=== PATIENT | female | born 1955 | race Caucasian/White ===

== ENCOUNTER 2017-04-10 10:35 | Inpatient (IN) | payer MEDICARE, OTHER ==
[~2017-04-10] VITALS: Ht 162.6 cm; Wt 55.5 kg
--- NOTE | 2017-04-10 10:59 | ED General ---
General Chief Complaint: Neurological Problems Stated Complaint: WEAKNESS Source of Information: Patient Exam Limitations: No Limitations History of Present Illness Time Seen by Provider: 10:56 Initial Comments To ER per EMS from home at the request of her family, she does not want to be here. Her family called EMS for ongoing weakness for the past several months as well as weight loss, poor appetite, nausea/vomiting and apparently she has been recently diagnosed with lung cancer at the emergency room at [facility] during the middle of this month. She has intermittent periods of confusion for several months according to family. She's had these symptoms for the past several months but they've been worse over the past 2-3 days. She does continue to smoke 2 packs of cigarettes per day and has done so for 40 years. She denies pain currently but the family insists that she usually has pain all over secondary to fibromyalgia and her Tylenol No. 4 is not nearly strong enough. Again, the patient denies current pain. Patient is unable to get herself out of bed to the commode without assistance Timing/Duration: Getting Worse Severity: Moderate Allergies and Home Medications Allergies Coded Allergies: No Known Drug Allergies (Unverified , 04/10/17) Constitutional: see HPI, weakness EENTM: see HPI Respiratory: cough Cardiovascular: no symptoms reported Gastrointestinal: No abdominal pain, nausea, vomiting Genitourinary: no symptoms reported Musculoskeletal: no symptoms reported Skin: no symptoms reported Psychiatric/Neurological: No Symptoms Reported Hematologic/Lymphatic: No Symptoms Reported Physical Exam Vital Signs Vital Sign - Last 12Hours 04/10/17 11:03 Temp 97.2 Pulse 97 Resp 20 B/P (MAP) 137/84 Pulse Ox 91 O2 Delivery Room Air Capillary Refill : General Appearance: No Apparent Distress, WD/WN, Chronically ill, Other ( lethargic) Eyes: Bilateral Eye Normal Inspection, Bilateral Eye PERRL, Bilateral Eye EOMI HEENT: PERRL/EOMI, TMs Normal Neck: Full Range of Motion, Normal Inspection Respiratory: No Accessory Muscle Use, No Respiratory Distress, Decreased Breath Sounds, Wheezing Cardiovascular: Regular Rate, Rhythm, Normal Peripheral Pulses Gastrointestinal: No Pulsatile Mass, Non Tender, Soft Extremity: Normal Capillary Refill, Normal Inspection Neurologic/Psychiatric: Alert, Oriented x3, No Motor/Sensory Deficits Skin: Normal Color, Warm/Dry Progress/Results/Core Measures Results/Orders Lab Results Laboratory Tests Test 04/10/17 11:10 04/10/17 12:45 Range/Units White Blood Count 10.5 4.3-11.0 10^3/uL Red Blood Count 4.30 L 4.35-5.85 10^6/uL Hemoglobin 14.0 11.5-16.0 G/DL Hematocrit 41 35-52 % Mean Corpuscular Volume 96 80-99 FL Mean Corpuscular Hemoglobin 33 25-34 PG Mean Corpuscular Hemoglobin Concent 34 32-36 G/DL Red Cell Distribution Width 13.1 10.0-14.5 % Platelet Count 200 130-400 10^3/uL Mean Platelet Volume 9.9 7.4-10.4 FL Neutrophils (%) (Auto) 86 H 42-75 % Lymphocytes (%) (Auto) 7 L 12-44 % Monocytes (%) (Auto) 7 0-12 % Eosinophils (%) (Auto) 0 0-10 % Basophils (%) (Auto) 0 0-10 % Neutrophils # (Auto) 9.0 H 1.8-7.8 X 10^3 Lymphocytes # (Auto) 0.7 L 1.0-4.0 X 10^3 Monocytes # (Auto) 0.7 0.0-1.0 X 10^3 Eosinophils # (Auto) 0.0 0.0-0.3 10^3/uL Basophils # (Auto) 0.0 0.0-0.1 10^3/uL Neutrophils % (Manual) 87 % Lymphocytes % (Manual) 8 % Monocytes % (Manual) 5 % Eosinophils % (Manual) 0 % Basophils % (Manual) 0 % Band Neutrophils 0 % Blood Morphology Comment NORMAL Sodium Level 137 135-145 MMOL/L Potassium Level 3.4 L 3.6-5.0 MMOL/L Chloride Level 101 98-107 MMOL/L Carbon Dioxide Level 23 21-32 MMOL/L Anion Gap 13 5-14 MMOL/L Blood Urea Nitrogen 14 7-18 MG/DL Creatinine 0.65 0.60-1.30 MG/DL Estimat Glomerular Filtration Rate > 60 BUN/Creatinine Ratio 22 Glucose Level 114 H 70-105 MG/DL Calcium Level 8.8 8.5-10.1 MG/DL Total Bilirubin 0.6 0.1-1.0 MG/DL Aspartate Amino Transf (AST/SGOT) 12 5-34 U/L Alanine Aminotransferase (ALT/SGPT) 14 0-55 U/L Alkaline Phosphatase 147 H 40-136 U/L Troponin I < 0.30 <0.30 NG/ML Total Protein 5.6 L 6.4-8.2 GM/DL Albumin 3.3 3.2-4.5 GM/DL Lipase 18 8-78 U/L Blood Gas Puncture Site LT RAD Blood Gas Patient Temperature 98.2 Arterial Blood pH 7.37 7.37-7.43 Arterial Blood Partial Pressure CO2 43 35-45 MMHG Arterial Blood Partial Pressure O2 86 79-93 MMHG Arterial Blood HCO3 24 23-27 MMOL/L Arterial Blood Total CO2 25.8 21.0-31.0 MMOL/L Arterial Blood Oxygen Saturation 97 94-100 % Arterial Blood Base Excess -0.2 -2.5-2.5 MMOL/L Christian Test YES-POS Blood Gas Ventilator Setting NO Blood Gas Inspired Oxygen 2L My Orders Orders - WARREN HERNÁNDEZ APRN Cbc With Automated Diff (04/10/17 10:48) Comprehensive Metabolic Panel (04/10/17 10:48) Ua Culture If Indicated (04/10/17 10:48) Saline Lock/Iv-Start (04/10/17 10:48) Chest Pa/Lat (2 View) (04/10/17 10:48) Troponin I (04/10/17 10:48) Ekg Tracing (04/10/17 10:48) Lipase (04/10/17 11:00) Ns Iv 1000 Ml (Sodium Chloride 0.9%) (04/10/17 11:00) Ondansetron Injection (Zofran Injectio (04/10/17 11:00) Manual Differential (04/10/17 11:10) Ct Chest W (04/10/17 12:35) Ct Head Wo (04/10/17 12:35) Arterial Blood Gas (04/10/17 12:47) Iohexol Injection (Omnipaque 350 Mg/Ml 1 (04/10/17 13:00) Sodium Chloride Flush (Catheter Flush Sy (04/10/17 13:00) Ns (Ivpb) (Sodium Chloride 0.9% Ivpb Bag (04/10/17 13:00) Medications Given in ED Current Medications Medications Dose Ordered Sig/Portia Route Start Time Stop Time Status Last Admin Dose Admin Iohexol 75 ml ONCE ONCE IV 04/10/17 13:00 04/10/17 13:01 DC 04/10/17 13:11 75 ML Ondansetron HCl 4 mg ONCE ONCE IVP 04/10/17 11:00 04/10/17 11:01 DC 04/10/17 11:27 4 MG Sodium Chloride 100 ml ONCE ONCE IV 04/10/17 13:00 04/10/17 13:01 DC 04/10/17 13:11 80 ML Vital Signs/I&O Vital Sign - Last 12Hours 04/10/17 11:03 Temp 97.2 Pulse 97 Resp 20 B/P (MAP) 137/84 Pulse Ox 91 O2 Delivery Room Air Diagnostic Imaging Diagonstic Imaging: CT Plain Films/CT/US/NM/MRI: chest Comments NAME: ANUPAMA CARBAJAL [employer] REC#: [id number] PT STATUS: REG ER : 1955 PHYSICIAN: WARREN HERNÁNDEZ APRN ADMIT DATE: 04/10/17/ER Signed Date of Exam:04/10/17 CT CHEST W PROCEDURE: CT chest with contrast only. TECHNIQUE: Multiple contiguous axial images were obtained through the chest after administration of intravenous contrast. INDICATION: Abnormal chest x-ray. Lung nodule. Cough There is a 2 x 3 cm spiculated mass in the right upper lobe anteriorly and laterally in a subpleural location. There is slight architectural distortion surrounding this. This is separate from some mild apical pleural scarring and malignancy needs be excluded. There is a patchy infiltrate in the right lower lobe. This corresponds with infiltrate seen on the chest x-ray. There is a 12 x 7 mm parenchymal density in the right middle lobe with some slight adjacent parenchymal distortion. The left lung is clear. There is no effusion or pneumothorax. There is a 14 x 21 mm subcarinal lymph node present. There is a similar sized pretracheal lymph node present. There is a 10 mm right hilar lymph node. No bony destructive lesions are seen. No liver lesions or adrenal lesions are evident. IMPRESSION: There is a spiculated mass in the right upper lobe which represents malignancy until proven otherwise. There is a smaller spiculated density in the right middle lobe which could be localized atelectasis versus infiltrate versus scar versus neoplasm. There is nodular infiltrate in the right lower lobe which is most consistent with pneumonia. PET scan may be helpful for further evaluation of the right upper and right middle lobe nodules. Dictated by: Dictated on workstation # [id number] Dict: 04/10/17 1325 Trans: 04/10/17 1340 [facility] [id number] Interpreted by: KENNETH CLIFFORD MD Electronically signed by: KENNETH CLIFFORD MD 04/10/17 1340 Departure Communication (Admissions) Time/Spoke to Admitting Phy: 15:[address] Norman agrees to admit Time/Spoke to Consulting Phy: 15:02 Communication/Consulting Voice mail left with Dr. Hyde notifying him of consult. Progress Notes 1458-patient is reluctant to be admitted but does ultimately agreed to. I feel she would benefit from inpatient admission given her nausea and vomiting and the fact that she would likely be unable to tolerate oral antibiotics for this right lower lobe pneumonia at home with her nausea. Her oxygen saturation has been greater than 90 percent on room air. Since she was on Cipro at the beginning of this month for urinary tract infection I will use the Zosyn and Levaquin combination for pneumonia Impression Impression: Primary Impression: Right lower lobe pneumonia Additional Impressions: Mass of upper lobe of right lung Mass of middle lobe of right lung Disposition: ADMITTED INPATIENT Condition: Stable Admissions Decision to Admit Reason: Admit from ER (General) Decision to Admit/Date: Apr 10, 2017 Time/Decision to Admit Time: 15:02 Departure-Patient Inst. Referrals: NO,LOCAL PHYSICIAN (PCP/Family) Primary Care Physician WARREN HERNÁNDEZ APRN Apr 10, 2017 10:59
[2017-04-10] MEDS ORDERED: NS IV 1000 ML 1,000 ML IV SCH (11:00)
[2017-04-10] MEDS ORDERED: ONDANSETRON 4 MG/2 ML (SDV) Z0FRAN IVP ONE (11:00)
[2017-04-10 11:20] LABS: BASOPHILS % (AUTO) 0 % (0-10); EOSINOPHILS % (AUTO) 0 % (0-10); LYMPHOCYTES # (AUTO) 0.7 X 10^3 (1.0-4.0); LYMPHOCYTES % (AUTO) 7 % (12-44); MEAN CORPUSCULAR HEMOGLOBIN 33 PG (25-34); MEAN CORPUSCULAR HGB CONC 34 G/DL (32-36); MEAN CORPUSCULAR VOLUME 96 FL (80-99); MEAN PLATELET VOLUME 9.9 FL (7.4-10.4); MONOCYTES # (AUTO) 0.7 X 10^3 (0.0-1.0); MONOCYTES % (AUTO) 7 % (0-12); NEUTROPHILS % (AUTO) 86 % (42-75); PLATELET COUNT 200 10^3/uL (130-400); RED CELL DISTRIBUTION WIDTH 13.1 % (10.0-14.5); WHITE BLOOD COUNT 10.5 10^3/uL (4.3-11.0)
[2017-04-10 11:36] LABS: ALANINE AMINOTRANSFERASE 14 U/L (0-55); ALBUMIN 3.3 GM/DL (3.2-4.5); ANION GAP 13 MMOL/L (5-14); ASPARTATE AMINO TRANSFERASE 12 U/L (5-34); BILIRUBIN,TOTAL 0.6 MG/DL (0.1-1.0); BLOOD UREA NITROGEN 14 MG/DL (7-18); BUN/CREATININE RATIO 22; CALCIUM 8.8 MG/DL (8.5-10.1); CARBON DIOXIDE 23 MMOL/L (21-32); CHLORIDE 101 MMOL/L (98-107); CREATININE SERUM 0.65 MG/DL (0.60-1.30); GFR ESTIMATED > 60; GLUCOSE 114 MG/DL (70-105); LIPASE 18 U/L (8-78); POTASSIUM 3.4 MMOL/L (3.6-5.0); SODIUM 137 MMOL/L (135-145); TOTAL PROTEIN 5.6 GM/DL (6.4-8.2)
[2017-04-10 11:37] LABS: BAND NEUTROPHILS 0 %; BASOPHILS % (MANUAL) 0 %; EOSINOPHILS % (MANUAL) 0 %; LYMPHOCYTES % (MANUAL) 8 %; NEUTROPHILS % (MANUAL) 87 %
[2017-04-10 11:42] LABS: TROPONIN I < 0.30 NG/ML (<0.30)
--- NOTE | 2017-04-10 12:52 | Diagnostic Imaging Report ---
INDICATION: Cough and shortness of breath and weakness. PA and lateral chest obtained at 11:56 a.m. FINDINGS: Heart is normal in size. Mediastinal silhouette is unremarkable. There is COPD change with chronic appearing increased interstitial markings. There is alveolar infiltrate in the right lower lobe suspicious for pneumonia. There is a questionable nodular density in the right apex, would consider followup studies, if this does not resolve then chest CT would be recommended. IMPRESSION: COPD changes and chronic appearing increased interstitial markings. Alveolar infiltrate in the right lung base suspicious for pneumonia. There is a nodular density overlying the right apex. Followup study after treatment is recommended, with chest CT if this does not resolve. Dictated by: Dictated on workstation # [id number]
[2017-04-10 12:53] LABS: ABG BASE EXCESS -0.2 MMOL/L (-2.5-2.5); ABG HCO3 24 MMOL/L (23-27); ABG OXYGEN SATURATION 97 % (94-100); ABG PCO2 43 MMHG (35-45); ABG PH 7.37 (7.37-7.43); ABG PO2 86 MMHG (79-93); ABG TCO2 25.8 MMOL/L (21.0-31.0)
[2017-04-10 12:54] LABS: ALLENS TEST YES-POS; PATIENT TEMP 98.2
[2017-04-10] MEDS ORDERED: NS 100 ML (IVPB) BAG IV ONE (13:00)
[2017-04-10] MEDS ORDERED: IOHEXOL 350 MG/ML 100 ML (OMNIPAQUE 350) VIAL IV ONE (13:00)
[2017-04-10] MEDS ORDERED: CATHETER FLUSH 10 ML SYR IV PRN (13:00)
--- NOTE | 2017-04-10 13:32 | Diagnostic Imaging Report ---
INDICATION: Dizziness and lightheadedness and memory loss. Noncontrast brain CT is performed. There is no prior study for comparison. There are mild diffuse atrophic changes. There is no subdural or epidural collection. Calvarial windows are unremarkable. There are no focal parenchymal abnormalities in the brain. Visualized portions of the orbits and sinuses are unremarkable. IMPRESSION: Mild atrophic changes with no acute intracranial abnormality. Dictated by: Dictated on workstation # [id number]
--- NOTE | 2017-04-10 13:36 | Diagnostic Imaging Report ---
PROCEDURE: CT chest with contrast only. TECHNIQUE: Multiple contiguous axial images were obtained through the chest after administration of intravenous contrast. INDICATION: Abnormal chest x-ray. Lung nodule. Cough There is a 2 x 3 cm spiculated mass in the right upper lobe anteriorly and laterally in a subpleural location. There is slight architectural distortion surrounding this. This is separate from some mild apical pleural scarring and malignancy needs be excluded. There is a patchy infiltrate in the right lower lobe. This corresponds with infiltrate seen on the chest x-ray. There is a 12 x 7 mm parenchymal density in the right middle lobe with some slight adjacent parenchymal distortion. The left lung is clear. There is no effusion or pneumothorax. There is a 14 x 21 mm subcarinal lymph node present. There is a similar sized pretracheal lymph node present. There is a 10 mm right hilar lymph node. No bony destructive lesions are seen. No liver lesions or adrenal lesions are evident. IMPRESSION: There is a spiculated mass in the right upper lobe which represents malignancy until proven otherwise. There is a smaller spiculated density in the right middle lobe which could be localized atelectasis versus infiltrate versus scar versus neoplasm. There is nodular infiltrate in the right lower lobe which is most consistent with pneumonia. PET scan may be helpful for further evaluation of the right upper and right middle lobe nodules. Dictated by: Dictated on workstation # [id number]
[2017-04-10 15:08] LABS: BILIRUBIN,URINE NEGATIVE (NEGATIVE); KETONES,URINE NEGATIVE (NEGATIVE); LEUKOCYTE ESTERASE ,URINE 1+ (NEGATIVE); NITRITE,URINE NEGATIVE (NEGATIVE); PH,URINE 6.5 (5-9); PROTEIN,URINE 1+ (NEGATIVE); UROBILINOGEN,URINE 4 MG/DL (NORMAL)
[2017-04-10] MEDS ORDERED: LEVOFLOXACIN 750 MG/150 ML IV 150 ML IV ONE (15:15)
[2017-04-10] MEDS ORDERED: ESOM20CA37 PO (16:05)
[2017-04-10] MEDS ORDERED: ACET1TAB45 PO (16:05)
[2017-04-10] MEDS ORDERED: ATOR10TA66 PO (16:05)
[2017-04-10] MEDS ORDERED: RT-ALBUINH INH (16:05)
[2017-04-10] MEDS ORDERED: AMIT25TA9 PO ×2 (16:05)
[2017-04-10] MEDS ORDERED: ZOLP10TA5 PO (16:05)
[2017-04-10] MEDS ORDERED: PROC10TA PO (16:05)
[2017-04-10] MEDS ORDERED: FLUT1AER INH (16:05)
[2017-04-10] MEDS ORDERED: ONDA4TAB11 PO (16:05)
[2017-04-10] MEDS ORDERED: FLUO20CA25 PO (16:05)
[2017-04-10] MEDS ORDERED: FAMO20TA5 PO (16:05)
[2017-04-10] MEDS ORDERED: TIZA4TAB3 PO (16:05)
[2017-04-10] MEDS ORDERED: DIAZ10TA3 PO (16:05)
[2017-04-10] MEDS ORDERED: PROM25TA14 PO (16:05)
[2017-04-10] MEDS ORDERED: SCOP1PAT TD (16:05)
[2017-04-10] MEDS ORDERED: MELO7.5T46 PO (16:05)
[2017-04-10 16:12] VITALS: BP 145/71
[2017-04-10] MEDS ORDERED: IPRA4AER INH (16:14)
[2017-04-10] MEDS ORDERED: ALEN70TA47 PO (16:14)
[2017-04-10] MEDS ORDERED: PIPERACILLIN/TAZOBACTAM 4.5 GM/NS100 ML IVPB IV NR ×2 (16:30)
[2017-04-10] MEDS ORDERED: LORazepam INJ 2 MG/ML (ATIVAN) VIAL IV PRN (16:30)
[2017-04-10] MEDS ORDERED: ONDANSETRON 4 MG/2 ML (SDV) Z0FRAN IV PRN (16:30)
[2017-04-10 16:48] VITALS: BP 137/84
[2017-04-10] MEDS: NICOTINE 21 MG (NICODERM) PATCH TD SCH (17:06)
[2017-04-10] MEDS: NS W/KCL 40 MEQ/L 1,000 ML IV SCH (17:07)
[2017-04-10] MEDS ORDERED: RT-ALBUTEROL/IPRATROPIUM 3 ML (DUONEB) VIAL INH PRN (17:15)
[2017-04-10 19:10] VITALS: BP 127/80
[2017-04-10] MEDS: RT-ALBUTEROL/IPRATROPIUM 3 ML (DUONEB) VIAL INH SCH ×2 (19:13→22:45)
[2017-04-10] MEDS: PIPERACILLIN/TAZOBACTAM 4.5 GM/NS 100 ML IVPB IV SCH ×2 (21:22)
[2017-04-11] MEDS: RT-ALBUTEROL/IPRATROPIUM 3 ML (DUONEB) VIAL INH SCH ×2 (01:47→06:50)
[2017-04-11 03:35] VITALS: BP 124/63
[2017-04-11] MEDS: NS W/KCL 40 MEQ/L 1,000 ML IV SCH ×3 (03:43→13:53)
[2017-04-11] MEDS: PIPERACILLIN/TAZOBACTAM 4.5 GM/NS 100 ML IVPB IV SCH ×6 (05:48→21:02)
[2017-04-11] MEDS: NICOTINE 21 MG (NICODERM) PATCH TD SCH (08:00)
[2017-04-11] MEDS: NICOTINE PATCH REMOVAL TP SCH (08:01)
--- NOTE | 2017-04-11 08:29 | Pulmonary Consultation ---
History of Present Illness History of Present Illness Date of Consultation 04/11/17 08:24 Time Seen by Provider: 08:24 Date of Admission History of Present Illness 61yo with recent of heavy tobacco use and dx of lung cancer at [facility] presented to ED via EMS secondary to progressive confusion, wt loss, poor appetite, n/v. No prior symptoms like this. I am consulted for pulmonary management. Allergies and Home Medications Allergies Coded Allergies: Sulfa (Sulfonamide Antibiotics) (Verified Allergy, Unknown, HIVES, 04/10/17 ) morphine (Unverified Adverse Reaction, Mild, NAUSEA, 04/11/17) Home Medications Acetaminophen with Codeine 1 Each Tablet, 1 TAB PO BID, (Reported) Albuterol Sulfate 1 Puff Puff, 2 PUFF INH Q4H, (Reported) Albuterol/Ipratropium 4 Gm Aero, 1 PUFF INH QID PRN for SHORTNESS OF BREATH, ( Reported) Alendronate Sodium 70 Mg Tablet, 70 MG PO Mo, (Reported) Amitriptyline HCl 25 Mg Tablet, 50 MG PO DAILY, (Reported) TAKES 2 (25MG) TABLETS Amitriptyline HCl 25 Mg Tablet, 100 MG PO HS, (Reported) TAKES 4 (25MG) TABLETS Atorvastatin Calcium 10 Mg Tablet, 10 MG PO HS, (Reported) Diazepam 10 Mg Tablet, 10 MG PO BID, (Reported) Esomeprazole Magnesium 20 Mg Capsule.dr, 20 MG PO DAILY, (Reported) Famotidine 20 Mg Tablet, 20 MG PO BID PRN for HEARTBURN, (Reported) Fluoxetine HCl 20 Mg Capsule, 20 MG PO BID, (Reported) Fluticasone/Vilanterol 1 Each Blst.w.dev, 2 PUFF INH BID PRN for SHORTNESS OF BREATH, (Reported) Meloxicam 7.5 Mg Tablet, 7.5 MG PO DAILY, (Reported) Ondansetron 4 Mg Tab.rapdis, 4 MG PO Q6H PRN for NAUSEA/VOMITING-1ST LINE, ( Reported) Prochlorperazine Maleate 10 Mg Tablet, 10 MG PO TID PRN for NAUSEA/VOMITING-4TH LINE, (Reported) Promethazine HCl 25 Mg Tablet, 25 MG PO Q6H PRN for NAUSEA/VOMITING-2ND LINE, ( Reported) Scopolamine 1 Each Patch.td72, 1 PATCH TD DAILY, (Reported) Tizanidine HCl 4 Mg Tablet, 4 MG PO BID, (Reported) Zolpidem Tartrate 10 Mg Tablet, 10 MG PO HS PRN for SLEEP, (Reported) Past [id number]-[id number]-Ramawj Hx Patient Social History Alcohol Use: Denies Use Recreational Drug Use: No Smoking Status: Current Everyday Smoker Type Used: Cigarettes 2nd Hand Smoke Exposure: Yes Recent Foreign Travel: No Contact w/Someone Who Travel: No Recent Infectious Disease Expo: No Recent Hopitalizations: No Physical Abuse: No Sexual Abuse: No Immunizations Up To Date PED Vaccines UTD: No Seasonal Allergies Seasonal Allergies: No Surgeries History of Surgeries: Yes (D&C X 2) Surgeries: Hysterectomy Respiratory History of Respiratory Disorde: Yes Respiratory Disorders: COPD Currently Using CPAP: No Currently Using BIPAP: No Cardiovascular History of Cardiac Disorders: Yes (TRICUSPID REGERG) Cardiac Disorders: High Cholesterol, Hypertension Neurological History of Neurological Disord: No Reproductive System : No Sexually Transmitted Disease: No HIV/AIDS: No Female Reproductive Disorders: Denies Genitourinary History of Genitourinary Disor: Yes (YEAST INFECTION WITH ABX) Gastrointestinal History of Gastrointestinal Di: Yes Gastrointestinal Disorders: Gastroesophageal Reflux, Hemorrhoids Musculoskeletal History of Musculoskeletal Dis: No Musculoskeletal Disorders: Fibromyalgia Endocrine History of Endocrine Disorders: No Are Your Blood Sugars Over 250: No HEENT History of HEENT Disorders: No Loss of Vision: Denies Hearing Impairment: Denies Cancer History of Cancer: Yes (METASTATIC) Cancer: Lung Did You Recieve Any Treatments: No Psychosocial Suicide Risk Score: 0 Integumentary History of Skin or Integumenta: No Family Medical History Family Medial History: Patient reports no known family medical history. Review of Systems Time Seen by Provider: 07:36 Constitutional: Weakness, No: Fever, Chills, Sweats, Malaise, Other Eyes: No: Pain, Vision change, Conjunctivae inflammation, Eyelid inflammation, Other, Redness ENT: No: Ear pain, Ear discharge, Nose pain, Nose discharge, Nose congestion, Mouth pain, Mouth swelling, Throat pain, Throat swelling, Other Respiratory: Cough, Dry, Shortness of breath, SOB with excertion, Wheezing, Sputum, No: Hemoptysis Cardiovascular: Orthopnea, Paroxysmal Noc. Dyspnea, Lt Headedness Gastrointestinal: Nausea, Vomiting, Constipation, No: Abdominal Pain, Diarrhea Genitourinary: No Dysuria, No Frequency, No Incontinence, No Hematuria, No Retention, No Other Neurological: Confusion Exam Exam Vital Signs Date Time Temp Pulse Resp B/P (MAP) Pulse Ox O2 Delivery O2 Flow Rate FiO2 04/11/17 06:55 94 Nasal Cannula 2.00 04/11/17 03:35 98.2 95 18 124/63 94 Nasal Cannula 2.00 04/11/17 01:48 91 Nasal Cannula 2.00 04/10/17 22:46 88 Room Air 04/10/17 21:00 Nasal Cannula 2.00 04/10/17 19:13 95 Nasal Cannula 2.00 04/10/17 19:10 98.4 87 20 127/80 95 Room Air 04/10/17 18:31 96 Nasal Cannula 2.00 04/10/17 16:48 85 96 04/10/17 16:48 96 Nasal Cannula 2.00 04/10/17 16:12 98.4 105 20 145/71 97 Room Air 04/10/17 11:03 97.2 97 20 137/84 91 Room Air General Appearance: No Apparent Distress, WD/WN, Chronically ill HEENT: PERRL/EOMI, TMs Normal Neck: Full Range of Motion, Normal Inspection Respiratory: No Accessory Muscle Use, No Respiratory Distress, Decreased Breath Sounds Cardiovascular: Regular Rate, Rhythm, Normal Peripheral Pulses Capillary Refill: Less Than 3 Seconds Extremity: Normal Capillary Refill, Normal Inspection Neurologic/Psychiatric: Alert, Oriented x3, No Motor/Sensory Deficits Skin: Normal Color, Warm/Dry Results Lab Laboratory Tests 04/10/17 11:10 Assessment/Plan Assessment/Plan Lung mass with mediastinal lymphadenopathy - Pt has not had bx however she is aware of the lung mass. - I have patient scheduled for bronchoscopy with EBUS on . This does not have to be done as inpatient. RLL pneumonia possible post obstructive -Zosyn and levaquin -scherer cultures Severe COPD -SVNs, oxygen persistent N/v, decreased appetite 254 Clinical Quality Measures DVT/VTE Risk/Contraindication: Risk Factor Score Per Nursin RFS Level Per Nursing on Admit: 3=High KENZIE HERNANDEZ DO Apr 11, 2017 08:29
[2017-04-11 08:41] VITALS: BP 123/75
[2017-04-11] MEDS: LEVOFLOXACIN 750 MG/150 ML IV 150 ML IV SCH (10:24)
--- NOTE | 2017-04-11 10:41 | History & Physical-Hospitalist ---
HPI History of Present Illness: HPI/Chief Complaint CC: Weakness HPI: This is a 61 [address] Jauregui that presented after ER visit to multiple ERs for lung ca but there is a question if this is a formal dx or not. CT scan revealed multiple lung masses consistent with lung ca, but no tissue dx. Admitted for pneumonia of the right lower lobe. She is been placed on Levaquin and Zosyn. Pt afebrile through the night on O2. SW Review: There was no biopsy performed, lung ca was a CT dx Patient Interview: Pt confirms seeing Dr. Hyde this am. Pt states she discussed what was found in her lungs with him. Pt confirms that she has had several CT scans recently. First, she states they thought it was scar tissue, then pneumonia, and finally they told the pt that she had lung ca and pneumonia. Pt denies O2 use at home Catheter discussed Physical exam stable. Lungs sound perfect Pt states she used to work for [employer], it is now called [employer] Pt confirms smoking and has been placed on a patch Pt states she had a BM a few days ago. BM meds discussed Pt confirms having fibromyalgia Scribed by Ginger Duarte under the direct supervision of Dr. Romano. Source: patient Exam Limitations: no limitations Date Seen 04/11/17 Time Seen by Provider: 10:00 Attending Physician Julienne Romano DO PCP No,Local Physician Referring Physician Date of Admission Apr 10, 2017 at 15:08 Home Medications & Allergies Home Medications Reviewed patient Home Medication Reconciliation Form Allergies Allergies Coded Allergies Sulfa (Sulfonamide Antibiotics) (Verified Allergy, Unknown, HIVES, 04/10/17) morphine (Unverified Adverse Reaction, Mild, NAUSEA, 04/11/17) Past [id number] Hx Patient Social History Marrital Status: single Employed/Student: retired Alcohol Use: Denies Use Recreational Drug Use: No Smoking Status: Current Everyday Smoker Type Used: Cigarettes 2nd Hand Smoke Exposure: Yes Physical Abuse Screen: No Sexual Abuse: No Recent Foreign Travel: No Contact w/other who traveled: No Recent Hopitalizations: No Recent Infectious Disease Expo: No Immunizations Up To Date Pediatric: No Seasonal Allergies Seasonal Allergies: No Surgeries Yes (D&C X 2) Hysterectomy Respiratory Yes COPD Currently Using CPAP: No Currently Using BIPAP: No Cardiovascular Yes (TRICUSPID REGERG) High Cholesterol, Hypertension Neurological No Reproductive System : No Sexually Transmitted Disease: No HIV/AIDS: No Female Reproductive Disorders: Denies Genitourinary Yes (YEAST INFECTION WITH ABX) Gastrointestinal Yes Gastroesophageal Reflux, Hemorrhoids Musculoskeletal No Fibromyalgia Endocrine History of Endocrine Disorders: No Are Your Blood Sugars Over 250: No HEENT History of HEENT Disorders: No Loss of Vision: Denies Hearing Impairment: Denies Cancer Yes (METASTATIC) Lung Did You Recieve Any Treatments: No Integumentary History of Skin or Integumenta: No Family Medical History Family Hx: Patient reports no known family medical history. Review of Systems Constitutional: see HPI, dizziness, fever, weakness EENTM: no symptoms reported Respiratory: short of breath Cardiovascular: no symptoms reported Gastrointestinal: nausea Genitourinary: no symptoms reported Musculoskeletal: no symptoms reported Skin: no symptoms reported Psychiatric/Neurological: No Symptoms Reported All Other Systems Reviewed Negative Unless Noted: Yes Physical Exam Physical Exam Vital Signs Vital Sign - Last 12Hours 04/10/17 11:03 Temp 97.2 Pulse 97 Resp 20 B/P (MAP) 137/84 Pulse Ox 91 O2 Delivery Room Air Capillary Refill : Less Than 3 Seconds General Appearance: No Apparent Distress, WD/WN, Chronically ill, Cachetic, Other (appears very end-stage) Eyes: Bilateral Eye Normal Inspection, Bilateral Eye PERRL HEENT: PERRL/EOMI, Normal ENT Inspection, Pharynx Normal Neck: Full Range of Motion, Normal Inspection, Non Tender, Supple, Carotid Bruit Respiratory: Chest Non Tender, No Accessory Muscle Use, No Respiratory Distress , Crackles, Decreased Breath Sounds Cardiovascular: Regular Rate, Rhythm, No Edema, No Gallop, No JVD, No Murmur, Normal Peripheral Pulses Gastrointestinal: Normal Bowel Sounds, No Organomegaly, No Pulsatile Mass, Non Tender, Soft Back: Normal Inspection, No CVA Tenderness, No Vertebral Tenderness Extremity: Normal Capillary Refill, Normal Inspection, Normal Range of Motion, Non Tender, No Calf Tenderness, No Pedal Edema Neurologic/Psychiatric: Alert, Oriented x3, No Motor/Sensory Deficits, Depressed Affect Skin: Normal Color, Warm/Dry Lymphatic: No Adenopathy Results Results/Procedures Lab Laboratory Tests 04/10/17 11:10 Assessment/Plan Admission Diagnosis Assessment: Acute right lower lobe pneumonia likely obstructive Multiple lung masses consistent with lung cancer and current smoker Severe COPD now requiring oxygen previously had not had home O2 Hypertension Severe fibromyalgia Depression Hyperlipidemia GERD Osteoarthritis Chronic pain Assessment and Plan Plan: Reconcile home meds BM meds Home O2 PT Disposition Clinical Quality Measures DVT/VTE Risk/Contraindication: Risk Factor Score Per Nursin RFS Level Per Nursing on Admit: 3=High JULIENNE ROMANO DO Apr 11, 2017 10:41
[2017-04-11] MEDS ORDERED: PROMETHAZINE 25 MG (PHENERGAN) TAB PO PRN (11:00)
[2017-04-11] MEDS ORDERED: FAMOTIDINE 20 MG (PEPCID) TABLET PO PRN (11:00)
[2017-04-11] MEDS ORDERED: PROCHLORPERAZINE 10 MG TAB (COMPAZINE) PO PRN (11:00)
[2017-04-11] MEDS ORDERED: SCOPOLAMINE 1.5 MG (TRANSDERM-SCOP) PATCH TD SCH (11:15)
[2017-04-11] MEDS ORDERED: ZOLPIDEM 5 MG (AMBIEN) TAB PO PRN (11:15)
[2017-04-11] MEDS ORDERED: RT-ALBUTEROL/IPRATROPIUM 3 ML (DUONEB) VIAL IH PRN (11:15)
[2017-04-11] MEDS: DIAZEPAM 5 MG (VALIUM) TABLET PO SCH ×2 (11:25→21:03)
[2017-04-11] MEDS: APAP 300 MG/CODEINE 30 MG (TYLENOL #3) TAB PO SCH ×2 (11:25→21:03)
[2017-04-11] MEDS: AMITRIPTYLINE 50 MG (ELAVIL) TAB PO SCH ×2 (11:25→21:03)
[2017-04-11] MEDS: LACTULOSE SYRUP 10GM/15ML (ENULOSE) 30ML UDC PO SCH ×2 (11:25→21:04)
[2017-04-11 12:00] VITALS: BP 135/66
[2017-04-11] MEDS: ONDANSETRON 4 MG (ZOFRAN) ORAL DISSOLVE TAB PO PRN (12:33)
--- NOTE | 2017-04-11 15:01 | Physical Therapy Evaluation ---
PT Evaluation-General Medical Diagnosis Admission Date Apr 10, 2017 at 15:08 Medical Diagnosis: lung mass/pneumonia Onset Date: Apr 10, 2017 Therapy Diagnosis Therapy Diagnosis: weakness and debility Height/Weight Height (Feet): 5 Height (Inches): 4.00 Weight (Pounds): 122 Weight (Ounces): 4.0 Precautions Precautions/Isolations: Fall Prevention, Standard Precautions Referral Physician: Ester Reason for Referral: Evaluation/Treatment Medical History Pertinent Medical History: COPD, HTN, OA, Smoking Additional Medical History Lung cancer newly diagnosed Current History EMS- weakness, wt loss, loss of appetite; nausea and vomiting Reviewed History: Yes Social History Home: Single Level Current Living Status: Children Prior/Core FIM Prior Level of Function Functional [place] Measure 0=Not Assessed/NA 4=Minimal Assistance 1=Total Assistance 5=Supervision or Setup 2=Maximal Assistance 6=Modified [place] 3=Moderate Assistance 7=Complete [place] Bed Mobility: 2 Transfers (B,C,W/C) (FIM): 2 Gait: 1 major decline due to weakness, wt loss PT Evaluation-Current Subjective Patient agrees to PT. C/o nausea Pain Numeric Pain Scale: 0-No Pain Location: No Pain Reported Objective Patient Orientation: Normal For Age Problem Solving: Fair Attachments: Oxygen, Mckoy Catheter, IV Home O2 study performed beginning 1425 removing O2, after 2 minutes, SAO2 on RA 95%, decreased to 86% on RA ambulating 100' with FWW. O2 2L NC placed with SAO2 recovery to 92% after 2 minutes. ROM/Strength ROM Lower Extremities bilateral LE WNL Strenght Lower Extremities right knee flexion/extension 3-/5; hip flexion 3-/5; ankle dorsi/plantarflexion 3-/5 left knee flexion/extension 3-/5; hip flexion 3-5/; ankle dorsi/plantarflexion 3 -/5 Integumentary/Posture Integumentary refer to nursing notes Bowel Incontinence: No Bladder Incontinence: Mckoy Cath Posture WNL Neuromuscular (Tone, Coordination, Reflexes) diminished coordination due to weakness; noted tremors Sensory Vision: Functional Hearing: Functional Sensation Right Lower Extremit: Intact Sensation Left Lower Extremity: Intact Transfers Functional [place] Measure 0=Not Assessed/NA 4=Minimal Assistance 1=Total Assistance 5=Supervision or Setup 2=Maximal Assistance 6=Modified [place] 3=Moderate Assistance 7=Complete [place] Transfers (B, C, W/C) (FIM): 4 Scootin Rollin Supine to/from Sit: 5 Sit to/from Stand: 4 bed t/f WC(FIM only if WC use): 4 minimal assist with use of gait belt for safety Gait Mode of Locomotion: Walk Anticipated Mode of Locomotion: Both Gait (FIM): 4 Distance (FIM): 3=150 ft Distance: 150' Gait Level of Assist: 4 Gait Assistive Device: FWW Comments/Gait Description unsteady with 3 episodes LOB with PT correcting. Patient unable to self correct due to weakness Balance Sitting Static: Fair Sitting Dynamic: Fair Standing Static: Fair Standing Dynamic: Fair Assessment/Needs 61 y.o. female, will benefit from skilled PT to address functional strength and mobility to improve current LOF. Patient is unaware of safety concerns and desires to return to home soon. Patient would benefit from continued therapy to improve function. Rehab Potential: Guarded PT Security Compliance Engineer Goals Shelter Goals PT Shelter Goals Time Frame: Apr 19, 2017 Transfers (B,C,W/C) (FIM): 5 Gait (FIM): 5 Gait distance (FIM): 3=150 ft Gait Level of Assist: 5 Gait Assistive Device: FWW PT Plan Problem List Problem List: Activity Tolerance, Functional Strength, Safety, Balance, Gait, Transfer Treatment/Plan Treatment Plan: Continue Plan of Care Treatment Plan: Bed Mobility, Education, Functional Activity Iris, Functional Strength, Gait, Safety, Therapeutic Exercise, Transfers Treatment Duration: Apr 19, 2017 Frequency: 6 times per week Estimated Hrs Per Day: .5 hour per day Patient and/or Family Agrees t: Yes Safety Risks/Education Patient Education: Safety Issues Teaching Recipient: Patient Teaching Methods: Discussion Response to Teaching: Reinforcement Needed Discharge Recommendations Therapy D/C Recommendations: Acute Rehab, Home w/ Family Support, Physical Therapy Home Care, Alf (TCU/NH) Time/GCodes Time In: 1425 Time Out: 1445 Total Billed Treatment Time: 20 [facility]NE EMMANUEL PT Apr 11, 2017 15:01
[2017-04-11] MEDS: RT-ALBUTEROL SULF 2.5 MG/3 ML PRE-MIX VIAL IH SCH ×3 (15:15→22:52)
[2017-04-11 16:59] VITALS: BP 114/57
[2017-04-11 19:53] VITALS: BP 134/68
[2017-04-11] MEDS ORDERED: RT-ADVAIR HFA 115/21 MCG PER PUFF IH PRN (20:00)
[2017-04-11] MEDS: ATORVASTATIN 10 MG (LIPITOR) TABLET PO SCH (21:04)
[2017-04-11] MEDS: FLUoxetine HCL 20 MG (PROzac) CAP PO SCH (21:04)
[2017-04-12] VITALS: BP 104/70
[2017-04-12] MEDS: NS W/KCL 40 MEQ/L 1,000 ML IV SCH (00:03)
[2017-04-12] MEDS: RT-ALBUTEROL SULF 2.5 MG/3 ML PRE-MIX VIAL IH SCH ×6 (02:43→21:25)
[2017-04-12 04:00] VITALS: BP 124/79
[2017-04-12] MEDS: PANTOPRAZOLE 20 MG TABLET (PROTONIX) PO SCH (06:06)
[2017-04-12] MEDS: PIPERACILLIN/TAZOBACTAM 4.5 GM/NS 100 ML IVPB IV SCH ×6 (06:06→21:33)
[2017-04-12] MEDS ORDERED: NS IV 500 ML 1,000 ML IV SCH (07:25)
--- NOTE | 2017-04-12 07:41 | Pulmonary Progress Note ---
Subjective Time Seen by Provider: 07:39 Subjective/Events-last exam PT still c/o of N/V. SOB is better. Exam Exam Vital Signs Date Time Temp Pulse Resp B/P (MAP) Pulse Ox O2 Delivery O2 Flow Rate FiO2 04/12/17 04:00 96.9 81 20 124/79 94 Nasal Cannula 2.00 04/12/17 02:43 Nasal Cannula 2.00 04/12/17 00:00 97.6 71 20 104/70 96 Nasal Cannula 2.00 04/11/17 22:52 Nasal Cannula 2.00 04/11/17 21:00 Nasal Cannula 2.00 04/11/17 19:53 97.9 87 20 134/68 94 Nasal Cannula 2.00 04/11/17 16:59 97.0 77 18 114/57 95 Nasal Cannula 2.00 04/11/17 15:10 94 2.00 04/11/17 12:00 98.2 80 20 135/66 94 Nasal Cannula 2.00 04/11/17 09:01 Nasal Cannula 2.00 04/11/17 08:41 98.0 91 20 123/75 95 Nasal Cannula 2.00 General Appearance: No Apparent Distress, WD/WN, Chronically ill HEENT: PERRL/EOMI, TMs Normal Neck: Full Range of Motion, Normal Inspection Respiratory: No Accessory Muscle Use, No Respiratory Distress, Decreased Breath Sounds Cardiovascular: Regular Rate, Rhythm, Normal Peripheral Pulses Capillary Refill: Less Than 3 Seconds Gastrointestinal: soft, no organomegaly, no pulsatile mass, No distended, No guarding, No rebound, tenderness (midepigastric ) Extremity: Normal Capillary Refill, Normal Inspection Neurologic/Psychiatric: Alert, Oriented x3, No Motor/Sensory Deficits Skin: Normal Color, Warm/Dry Lymphatic: No Adenopathy Results Lab Laboratory Tests 04/10/17 11:10 Assessment/Plan Assessment/Plan Lung mass with mediastinal lymphadenopathy - Pt has not had bx however she is aware of the lung mass. - I have patient scheduled for bronchoscopy with EBUS on . This does not have to be done as inpatient. RLL pneumonia possible post obstructive -Zosyn and levaquin -scherer cultures Severe COPD -SVNs, oxygen persistent N/v, decreased appetite -Check CT of abdomen and pelvis r/o mets -check amylase lipase -Give 1 liter bolus of NS over 2hrs. Labs and radiology reviewed. 233 Clinical Quality Measures DVT/VTE Risk/Contraindication: Risk Factor Score Per Nursin RFS Level Per Nursing on Admit: 3=High KENZIE HERNANDEZ DO Apr 12, 2017 07:40
[2017-04-12] MEDS: MELOXICAM 7.5 MG (MOBIC) TABLET PO SCH (07:58)
[2017-04-12] MEDS: AMITRIPTYLINE 50 MG (ELAVIL) TAB PO SCH ×2 (07:58→20:01)
[2017-04-12] MEDS: FLUoxetine HCL 20 MG (PROzac) CAP PO SCH ×2 (07:58→20:01)
[2017-04-12] MEDS: DIAZEPAM 5 MG (VALIUM) TABLET PO SCH ×2 (07:59→20:01)
[2017-04-12] MEDS: APAP 300 MG/CODEINE 30 MG (TYLENOL #3) TAB PO SCH ×2 (07:59→20:02)
[2017-04-12] MEDS: NICOTINE PATCH REMOVAL TP SCH (07:59)
[2017-04-12] MEDS: LACTULOSE SYRUP 10GM/15ML (ENULOSE) 30ML UDC PO SCH ×2 (07:59→20:02)
[2017-04-12] MEDS: NICOTINE 21 MG (NICODERM) PATCH TD SCH (08:03)
[2017-04-12] MEDS: NS IV 1000 ML 1,000 ML IV SCH ×3 (08:06→23:33)
[2017-04-12] MEDS: ONDANSETRON 4 MG (ZOFRAN) ORAL DISSOLVE TAB PO PRN (08:16)
[2017-04-12 08:49] LABS: BASOPHILS % (AUTO) 0 % (0-10); EOSINOPHILS # (AUTO) 0.1 10^3/uL (0.0-0.3); EOSINOPHILS % (AUTO) 1 % (0-10); LYMPHOCYTES # (AUTO) 0.9 X 10^3 (1.0-4.0); LYMPHOCYTES % (AUTO) 15 % (12-44); MEAN CORPUSCULAR HEMOGLOBIN 32 PG (25-34); MEAN CORPUSCULAR HGB CONC 33 G/DL (32-36); MEAN CORPUSCULAR VOLUME 99 FL (80-99); MEAN PLATELET VOLUME 9.5 FL (7.4-10.4); MONOCYTES # (AUTO) 0.4 X 10^3 (0.0-1.0); MONOCYTES % (AUTO) 7 % (0-12); NEUTROPHILS # (AUTO) 4.6 X 10^3 (1.8-7.8); NEUTROPHILS % (AUTO) 76 % (42-75); PLATELET COUNT 179 10^3/uL (130-400); RED BLOOD COUNT 3.67 10^6/uL (4.35-5.85); RED CELL DISTRIBUTION WIDTH 13.3 % (10.0-14.5); WHITE BLOOD COUNT 6.1 10^3/uL (4.3-11.0)
[2017-04-12 08:54] VITALS: BP 144/89
[2017-04-12] MEDS ORDERED: DIATRIZOATE MEGLUM/SODIUM 37% 120 ML (GASTROGRAFIN) PO ONE (09:00)
[2017-04-12] MEDS ORDERED: NS 100 ML (IVPB) BAG IV ONE (09:00)
[2017-04-12] MEDS ORDERED: CATHETER FLUSH 10 ML SYR IV PRN (09:00)
[2017-04-12] MEDS ORDERED: IOHEXOL 350 MG/ML 100 ML (OMNIPAQUE 350) VIAL IV ONE (09:00)
[2017-04-12 09:09] LABS: ALANINE AMINOTRANSFERASE 13 U/L (0-55); AMYLASE 12 U/L (25-125); ANION GAP 8 MMOL/L (5-14); ASPARTATE AMINO TRANSFERASE 13 U/L (5-34); BILIRUBIN,TOTAL 0.4 MG/DL (0.1-1.0); BLOOD UREA NITROGEN 6 MG/DL (7-18); BUN/CREATININE RATIO 10; CALCIUM 8.6 MG/DL (8.5-10.1); CARBON DIOXIDE 21 MMOL/L (21-32); CHLORIDE 108 MMOL/L (98-107); CREATININE SERUM 0.58 MG/DL (0.60-1.30); GFR ESTIMATED > 60; GLUCOSE 100 MG/DL (70-105); LIPASE 19 U/L (8-78); POTASSIUM 4.7 MMOL/L (3.6-5.0); SODIUM 137 MMOL/L (135-145); TOTAL PROTEIN 5.2 GM/DL (6.4-8.2)
--- NOTE | 2017-04-12 10:20 | D/C HH Face to Face Order ---
D/C Face to Face Orders Instructions for Patient Patient Instructions/FollowUp: Dr Jauregui clinic in 1 week Physician to follow Patient: Shania Discharge Diet for Home: No Restrictions Patient Problems: Lung masses suspicion for cancer scheduled for bronchoscopy with EBUS , 04/18/[address] Hyde Pneumonia Weakness New home O2 Patient Data-Allergies,Ht & Wt Patient Allergies: Coded Allergies: Sulfa (Sulfonamide Antibiotics) (Verified Allergy, Unknown, HIVES, 04/10/17 ) morphine (Unverified Adverse Reaction, Mild, NAUSEA, 04/11/17) Height (Feet): 5 Height (Inches): 4.00 Weight (Pounds): 122 Weight (Ounces): 4.0 Home Health Need/Face to Face Date of Face to Face: Apr 12, 2017 Clinical Findings: Generalized weakness and fatigue, Immune-compromised I have seen Pt [id number]: Yes Discharged To: Home Diagnosis/Conditions: Lung masses suspicion for cancer scheduled for bronchoscopy with EBUS , 04/18/[address] Hyde Pneumonia Weakness Problems/Diagnosis/Condition: Patient is Homebound due to: Keely fall risk due to instabilty, Muscle weakness , Shortness of breath/distress Homebound Status Due to the above stated illness, injury or surgical procedure (medical condition or diagnosis) and associated clinical findings, the patient is homebound because of his/her inability to leave home except with aid of a supportive device and/or person AND leaving the home requires a considerable and taxing effort or is medically contraindicated. Pt req the following assistanc: Walker Home Health Nursing Orders Home Health Services Order: Nursing Services, Entry Level Java Developer-Evaluate & Treat, Physical Therapy-Evaluate & Treat Home Health Infusion Therapy Line Start Date: Apr 10, 2017 Line Start Time: 1100 Line Type: Peripheral IV Site Location: Forearm Therapy Orders Therapy Orders: OT (must have SN or PT order), Physical Therapy Therapy Specific Orders: Gait training Certify Stmt I certify that this patient is under my care and that I, a nurse practitioner or a physician; a assistant administrator working with me, had a face to face encounter that - meets the physician face to face encounter requirements with this patient as dated. MORGAN ROMANO DO Apr 12, 2017 10:20
--- NOTE | 2017-04-12 11:25 | Physical Therapy Daily Note ---
PT Daily Note-Current Subjective Patient is in bed and agrees to PT. Continues to c/o Nausea Pain Numeric Pain Scale: 5-Moderate Pain Location: Lower Location Body Site: Abdomen Pain Description: Chronic Appearance abdominal distention Mental Status Patient Orientation: Normal For Age Attachments: Oxygen, Mckoy Catheter, IV Transfers Functional [place] Measure 0=Not Assessed/NA 4=Minimal Assistance 1=Total Assistance 5=Supervision or Setup 2=Maximal Assistance 6=Modified [place] 3=Moderate Assistance 7=Complete IndependenceIRFPAI Quality Coding Scale 6 Independent with activity with or without an assistive device 5 Patient requires set up or clean up by helper. Patient completes activity by themselves 4 Supervision or touching assist (CGA). Roberta provide cues , steadying assist 3 The helper provides less than half the effort to complete the activity 2 The helper provides more than half the effort to complete the activity 1 Dependent. The helper does all the effort to complete an activity 7 Patient refused to complete or attempt activity 9 The patient did not perform the activity before the current illness or injury 88 Not attempted due to Medical conditions or safety concerns Transfers (B, C, W/C) (FIM): 4 Scootin Rollin Supine to/from Sit: 5 Sit to/from Stand: 4 Gait Training Gait (FIM): 4 Distance (FIM): 3=150 ft Distance: 175' Gait Level of Assist: 4 Gait Persons Needed: 1 Gait Assistive Device: FWW improved stability on this date Assessment Patient returned to bed due to extreme fatigue. Patient receiving multiple testing done today. PT It Communications Manager Goals Intermediate Goals PT It Communications Manager Goals Time Frame: Apr 19, 2017 Transfers (B,C,W/C) (FIM): 5 Gait (FIM): 5 Gait distance (FIM): 3=150 ft Gait Level of Assist: 5 Gait Assistive Device: FWW PT Plan Treatment/Plan Treatment Plan: Continue Plan of Care Treatment Plan: Bed Mobility, Education, Functional Activity Iris, Functional Strength, Gait, Safety, Therapeutic Exercise, Transfers Treatment Duration: Apr 19, 2017 Frequency: 6 times per week Estimated Hrs Per Day: .5 hour per day Patient and/or Family Agrees t: Yes Time/GCodes Time In: 1026 Time Out: 1036 Total Billed Treatment Time: 10 Total Billed Treatment 1 visit GT 10 min MARY ANNE EMMANUEL PT Apr 12, 2017 11:25
--- NOTE | 2017-04-12 11:35 | Progress Note-Hospitalist ---
Progress Note HPI/CC on Admission CC: Weakness HPI: This is a 61 [address] Jauregui that presented after ER visit to multiple ERs for lung ca but there is a question if this is a formal dx or not. CT scan revealed multiple lung masses consistent with lung ca, but no tissue dx. Admitted for pneumonia of the right lower lobe. She is been placed on Levaquin and Zosyn. Pt afebrile through the night on O2. SW Review: There was no biopsy performed, lung ca was a CT dx Patient Interview: Pt confirms seeing Dr. Hyde this am. Pt states she discussed what was found in her lungs with him. Pt confirms that she has had several CT scans recently. First, she states they thought it was scar tissue, then pneumonia, and finally they told the pt that she had lung ca and pneumonia. Pt denies O2 use at home Catheter discussed Physical exam stable. Lungs sound perfect Pt states she used to work for [employer], it is now called [employer] Pt confirms smoking and has been placed on a patch Pt states she had a BM a few days ago. BM meds discussed Pt confirms having fibromyalgia Scribed by Ginger Duarte under the direct supervision of Dr. Romano. Progress Notes/Assess & Plan Date Seen 04/12/17 Time Seen by Provider: 09:30 Admission Dx/Process Assessment: Acute right lower lobe pneumonia likely obstructive Multiple lung masses consistent with lung cancer and current smoker Severe COPD now requiring oxygen previously had not had home O2 Hypertension Severe fibromyalgia Depression Hyperlipidemia GERD Osteoarthritis Chronic pain Diagonsis/Assessment & Plan Patient doing okay but nauseated from drinking the oral contrast for the CT scan of the abdomen and pelvis that Dr. Hyde ordered Bronchoscopy is scheduled for and we'll shift that to outpatient Arranged for oxygen and home health and walker for her to be discharged tomorrow if she feels strong enough IV antibiotics tolerated well her postobstructive pneumonia Patient reports pain is doing okay with home meds No fever, vital signs stable, thin, frail, chronically ill Regular rate and rhythm, clear to auscultation bilaterally but diminished in the bases No edema Assessment: Acute right lower lobe pneumonia likely obstructive Multiple lung masses consistent with lung cancer and current smoker Severe COPD now requiring oxygen previously had not had home O2 Hypertension Severe fibromyalgia Depression Hyperlipidemia GERD Osteoarthritis Chronic pain Plan: BM meds Home O2 ordered PT at home ordered with HH Disposition tomorrow home with family Very poor prognosis MORGAN ROMANO DO Apr 12, 2017 11:35
[2017-04-12 12:00] VITALS: BP 120/81
[2017-04-12] MEDS: LEVOFLOXACIN 750 MG/150 ML IV 150 ML IV SCH (12:08)
[2017-04-12 16:00] VITALS: BP 133/76
--- NOTE | 2017-04-12 17:29 | Diagnostic Imaging Report ---
PROCEDURE: CT abdomen and pelvis with contrast. TECHNIQUE: Multiple contiguous axial images were obtained through the abdomen and pelvis after administration of intravenous contrast. INDICATION: Nausea and abdominal pain. Previous hysterectomy. FINDINGS: There is consolidated infiltrate in right lower lung. There is moderate right basilar pleural effusion as well. The left lung base is clear. The liver appears normal. Gallbladder and bile ducts are normal. Pancreas and spleen appear normal. The adrenal glands are not enlarged. Kidneys show no evidence of obstruction or mass. There is normal enhancement of the abdominal organs and vessels following IV contrast. No evidence of aortic aneurysm. There is atherosclerotic aortic disease. The stomach and small bowel are not distended. Throughout the colon from the cecum to the mid descending colon, there is question of possible stricture of the colon at this level with thickening of the bowel wall. The distal descending colon, sigmoid colon and rectum show very little stool. The appendix is not identified. There is Mckoy catheter in place. Bladder is decompressed. The uterus is absent. There is no evidence of free air or free fluid. No intra-abdominal adenopathy demonstrated. No bony lesions demonstrated. IMPRESSION: 1. Large amount of stool in the ascending, transverse and proximal descending colon. Concern is raised of possible apple core type lesion of the mid descending colon. Would consider colonoscopy or barium enema. Dictated by: Dictated on workstation # [id number]
[2017-04-12] MEDS: ATORVASTATIN 10 MG (LIPITOR) TABLET PO SCH (20:01)
[2017-04-12 23:45] VITALS: BP 111/61
[2017-04-13] MEDS: RT-ALBUTEROL SULF 2.5 MG/3 ML PRE-MIX VIAL IH SCH ×3 (02:01→10:37)
[2017-04-13] MEDS: PANTOPRAZOLE 20 MG TABLET (PROTONIX) PO SCH (05:21)
[2017-04-13] MEDS: PIPERACILLIN/TAZOBACTAM 4.5 GM/NS 100 ML IVPB IV SCH ×2 (05:21)
[2017-04-13 05:42] LABS: BASOPHILS % (AUTO) 0 % (0-10); EOSINOPHILS # (AUTO) 0.1 10^3/uL (0.0-0.3); EOSINOPHILS % (AUTO) 2 % (0-10); LYMPHOCYTES # (AUTO) 0.7 X 10^3 (1.0-4.0); LYMPHOCYTES % (AUTO) 11 % (12-44); MEAN CORPUSCULAR HEMOGLOBIN 33 PG (25-34); MEAN CORPUSCULAR HGB CONC 33 G/DL (32-36); MEAN CORPUSCULAR VOLUME 99 FL (80-99); MONOCYTES # (AUTO) 0.4 X 10^3 (0.0-1.0); MONOCYTES % (AUTO) 6 % (0-12); NEUTROPHILS # (AUTO) 5.4 X 10^3 (1.8-7.8); NEUTROPHILS % (AUTO) 81 % (42-75); PLATELET COUNT 174 10^3/uL (130-400); RED CELL DISTRIBUTION WIDTH 13.1 % (10.0-14.5); WHITE BLOOD COUNT 6.7 10^3/uL (4.3-11.0)
[2017-04-13 06:09] LABS: ALANINE AMINOTRANSFERASE 20 U/L (0-55); ALBUMIN 2.8 GM/DL (3.2-4.5); ANION GAP 8 MMOL/L (5-14); ASPARTATE AMINO TRANSFERASE 21 U/L (5-34); BILIRUBIN,TOTAL 0.3 MG/DL (0.1-1.0); BLOOD UREA NITROGEN 6 MG/DL (7-18); BUN/CREATININE RATIO 11; CALCIUM 8.4 MG/DL (8.5-10.1); CARBON DIOXIDE 22 MMOL/L (21-32); CHLORIDE 107 MMOL/L (98-107); CREATININE SERUM 0.57 MG/DL (0.60-1.30); GFR ESTIMATED > 60; GLUCOSE 97 MG/DL (70-105); POTASSIUM 4.2 MMOL/L (3.6-5.0); SODIUM 137 MMOL/L (135-145); TOTAL PROTEIN 4.5 GM/DL (6.4-8.2)
[2017-04-13] MEDS: NS IV 1000 ML 1,000 ML IV SCH (07:44)
[2017-04-13 08:30] VITALS: BP 133/79
[2017-04-13] MEDS: AMITRIPTYLINE 50 MG (ELAVIL) TAB PO SCH (09:47)
[2017-04-13] MEDS: NICOTINE 21 MG (NICODERM) PATCH TD SCH (09:47)
[2017-04-13] MEDS: LACTULOSE SYRUP 10GM/15ML (ENULOSE) 30ML UDC PO SCH (09:47)
[2017-04-13] MEDS: FLUoxetine HCL 20 MG (PROzac) CAP PO SCH (09:47)
[2017-04-13] MEDS: NICOTINE PATCH REMOVAL TP SCH (09:47)
[2017-04-13] MEDS: MELOXICAM 7.5 MG (MOBIC) TABLET PO SCH (09:47)
[2017-04-13] MEDS: DIAZEPAM 5 MG (VALIUM) TABLET PO SCH (09:48)
[2017-04-13] MEDS: APAP 300 MG/CODEINE 30 MG (TYLENOL #3) TAB PO SCH (09:48)
[2017-04-13] MEDS ORDERED: ONDA8TAB9 PO (10:53)
[2017-04-13] MEDS ORDERED: LEVO750T9 PO (10:53)
--- NOTE | 2017-04-13 11:01 | Discharge Summary-Hospitalist ---
Diagnosis/Chief Complaint Date of Admission Apr 10, 2017 at 15:08 Date of Discharge Discharge Date: Apr 13, 2017 Admission Diagnosis Assessment: Acute right lower lobe pneumonia likely obstructive Multiple lung masses consistent with lung cancer and current smoker Severe COPD now requiring oxygen previously had not had home O2 Hypertension Severe fibromyalgia Depression Hyperlipidemia GERD Osteoarthritis Chronic pain Discharge Diagnosis Assessment: Acute right lower lobe pneumonia likely obstructive Multiple lung masses consistent with lung cancer and current smoker Severe COPD now requiring oxygen previously had not had home O2 Hypertension Severe fibromyalgia Depression Hyperlipidemia GERD Osteoarthritis Chronic pain Constipation long-standing by CT scan reveals possible apple-core lesion colon cancer so will f/u for colonoscopy after bronchoscopy but she has meds at home that she takes for the chronic constipation that she will take once she arrives at home Very poor prognosis overall considering likely wide-spread lung cancer in smoker with COPD and new colon mass that appears to be neoplastic Discharge Summary Discharge Physical Examination Allergies: Coded Allergies: Sulfa (Sulfonamide Antibiotics) (Verified Allergy, Unknown, HIVES, 04/10/17 ) morphine (Unverified Adverse Reaction, Mild, NAUSEA, 04/11/17) Vitals & I&Os Vital Signs Date Time Temp Pulse Resp B/P (MAP) Pulse Ox O2 Delivery O2 Flow Rate FiO2 04/13/17 10:37 93 Nasal Cannula 2.00 04/13/17 08:30 98.0 91 20 133/79 Hospital Course Hospital course: Patient had a standard hospital course when she was admitted for postobstructive pneumonia with lung masses and overall weakness and nausea and vomiting. She progressed well and improved enough to return home with home care with new home oxygen order at 2 L along with walker. Patient was counseled for smoking cessation with use of home oxygen but overall she has a very poor prognosis especially considering the multiple masses in her lungs that will have bronchoscopy with biopsy on by Dr. Hyde in addition to colon mass on CT abdomen and pelvis of which she has chronic constipation and never had a colonoscopy consistent with colon cancer apple-core lesion so will attempt to resolve the constipation as she does at home in the past and close follow-up but very poor prognosis considering it is presumed she has lung cancer widespread and now possible colon cancer. Labs (last 24 hrs) Laboratory Tests 04/13/17 04:55: White Blood Count 6.7, Red Blood Count 3.60L, Hemoglobin 11.7, Hematocrit 36, Mean Corpuscular Volume 99, Mean Corpuscular Hemoglobin 33, Mean Corpuscular Hemoglobin Concent 33, Red Cell Distribution Width 13.1, Platelet Count 174, Mean Platelet Volume 10.0, Neutrophils (%) (Auto) 81H, Lymphocytes (%) (Auto) 11L, Monocytes (%) (Auto) 6, Eosinophils (%) (Auto) 2, Basophils (%) (Auto) 0, Neutrophils # (Auto) 5.4, Lymphocytes # (Auto) 0.7L, Monocytes # (Auto) 0.4, Eosinophils # (Auto) 0.1, Basophils # (Auto) 0.0, Sodium Level 137, Potassium Level 4.2, Chloride Level 107, Carbon Dioxide Level 22, Anion Gap 8, Blood Urea Nitrogen 6L, Creatinine 0.57L, Estimat Glomerular Filtration Rate > 60, BUN/ Creatinine Ratio 11, Glucose Level 97, Calcium Level 8.4L, Total Bilirubin 0.3, Aspartate Amino Transf (AST/SGOT) 21, Alanine Aminotransferase (ALT/SGPT) 20, Alkaline Phosphatase 132, Total Protein 4.5L, Albumin 2.8L Microbiology 04/10/17 Blood Culture - Preliminary, Resulted No growth Pending Labs Laboratory Tests 04/13/17 04:55: White Blood Count 6.7, Red Blood Count 3.60, Hemoglobin 11.7, Hematocrit 36, Mean Corpuscular Volume 99, Mean Corpuscular Hemoglobin 33, Mean Corpuscular Hemoglobin Concent 33, Red Cell Distribution Width 13.1, Platelet Count 174, Mean Platelet Volume 10.0, Neutrophils (%) (Auto) 81, Lymphocytes (%) (Auto) 11 , Monocytes (%) (Auto) 6, Eosinophils (%) (Auto) 2, Basophils (%) (Auto) 0, Neutrophils # (Auto) 5.4, Lymphocytes # (Auto) 0.7, Monocytes # (Auto) 0.4, Eosinophils # (Auto) 0.1, Basophils # (Auto) 0.0, Sodium Level 137, Potassium Level 4.2, Chloride Level 107, Carbon Dioxide Level 22, Anion Gap 8, Blood Urea Nitrogen 6, Creatinine 0.57, Estimat Glomerular Filtration Rate > 60, BUN/ Creatinine Ratio 11, Glucose Level 97, Calcium Level 8.4, Total Bilirubin 0.3, Aspartate Amino Transf (AST/SGOT) 21, Alanine Aminotransferase (ALT/SGPT) 20, Alkaline Phosphatase 132, Total Protein 4.5, Albumin 2.8 Discharge Home Medications: Active Scripts Active Levaquin (Levofloxacin) 750 Mg Tablet 750 Mg PO DAILY Zofran Odt (Ondansetron) 8 Mg Tab.rapdis 8 Mg PO Q6H Reported Combivent Respimat Inhal Kinzers (Albuterol/Ipratropium) 4 Gm Aero 1 Puff INH QID PRN Alendronate Sodium 70 Mg Tablet 70 Mg PO MO Atorvastatin Calcium 10 Mg Tablet 10 Mg PO HS Breo Ellipta 100-25 Mcg INH (Fluticasone/Vilanterol) 1 Each Blst.w.dev 2 Puff INH BID PRN Promethazine Tablet (Promethazine HCl) 25 Mg Tablet 25 Mg PO Q6H PRN Prochlorperazine Maleate 10 Mg Tablet 10 Mg PO TID PRN Fluoxetine HCl 20 Mg Capsule 20 Mg PO BID Esomeprazole Magnesium 20 Mg Capsule.dr 20 Mg PO DAILY Proair Hfa (Albuterol Sulfate) 1 Puff Puff 2 Puff INH Q4H Ondansetron Odt (Ondansetron) 4 Mg Tab.rapdis 4 Mg PO Q6H PRN Zolpidem Tartrate 10 Mg Tablet 10 Mg PO HS PRN Famotidine 20 Mg Tablet 20 Mg PO BID PRN Acetaminophen-Cod #4 Tablet (Acetaminophen with Codeine) 1 Each Tablet 1 Tab PO BID Diazepam 10 Mg Tablet 10 Mg PO BID Amitriptyline HCl 25 Mg Tablet 100 Mg PO HS TAKES 4 (25MG) TABLETS Amitriptyline HCl 25 Mg Tablet 50 Mg PO DAILY TAKES 2 (25MG) TABLETS Tizanidine HCl 4 Mg Tablet 4 Mg PO BID Transderm-Scop (Scopolamine) 1 Each Patch.td72 1 Patch TD DAILY Meloxicam 7.5 Mg Tablet 7.5 Mg PO DAILY Instructions to patient/family Please see electonic discharge instructions given to patient. Clinical Quality Measures DVT/VTE Risk/Contraindication: Risk Factor Score Per Nursin RFS Level Per Nursing on Admit: 3=High MORGAN ROMANO DO Apr 13, 2017 11:01
[2017-04-13] MEDS: LEVOFLOXACIN 750 MG/150 ML IV 150 ML IV SCH (12:20)
[2017-04-14] MEDS ORDERED: SCOPOLAMINE PATCH REMOVAL TP SCH (08:59)
[2017-04-14] MEDS ORDERED: SCOPOLAMINE 1.5 MG (TRANSDERM-SCOP) PATCH TD SCH (09:00)
[2017-04-15] MEDS ORDERED: NON-FORMULARY MEDICATION 1 EA EA (Alendronate Sodium 70 MG) PO SCH (11:00)
== END 2017-04-13 13:15 | disposition home health service (06) | DRG 190 ==
LOC: ER 10:38 → 4TH 15:08
PROVIDERS: ADMIT Internal Medicine; ATTEND Internal Medicine
DX: J44.0 Chronic obstructive pulmonary disease with (acute) lower respiratory infection (principal); J18.9 Pneumonia, unspecified organism; C34.11 Malignant neoplasm of upper lobe, right bronchus or lung; C34.2 Malignant neoplasm of middle lobe, bronchus or lung; C18.9 Malignant neoplasm of colon, unspecified; R59.0 Localized enlarged lymph nodes; R64 Cachexia; K59.00 Constipation, unspecified; I10 Essential (primary) hypertension; F32.9 Major depressive disorder, single episode, unspecified; E78.00 Pure hypercholesterolemia, unspecified; E78.5 Hyperlipidemia, unspecified; K21.9 Gastro-esophageal reflux disease without esophagitis; M19.91 Primary osteoarthritis, unspecified site; M79.7 Fibromyalgia; I07.1 Rheumatic tricuspid insufficiency; F17.210 Nicotine dependence, cigarettes, uncomplicated
CPT/HCPCS: 36415; 70450; 71020; 71260; 74177; 80053; 81000; 82150; 82805; 83605; 83690; 84484; 85007; 85025; 85027; 87040; 93005; 94640; 94664; 94760; 94761; 96361; 96365; 96375

== ENCOUNTER 2017-04-24 08:01 | Day surgery (SDC) | payer MEDICARE ==
[~2017-04-24] VITALS: Ht 162.6 cm; Wt 55.5 kg
[2017-04-24] VITALS (7 sets, daily range): BP systolic 131–159; BP diastolic 69–88
[~2017-04-24 08:01] MED LIST: ACET1TAB45 PO; ALEN70TA47 PO; AMIT25TA9 PO; ATOR10TA66 PO; DIAZ10TA3 PO; ESOM20CA37 PO; FAMO20TA5 PO; FLUO20CA25 PO; FLUT1AER INH; IPRA4AER INH; LACTATED RINGERS 1,000 ML IV ONE; LEVO750T9 PO; MELO7.5T46 PO; ONDA4TAB11 PO; ONDA8TAB9 PO; PROC10TA PO; PROM25TA14 PO; RT-ALBUINH INH; SCOP1PAT TD; TIZA4TAB3 PO; ZOLP10TA5 PO
[2017-04-24] MEDS ORDERED: proPOfol 200 MG/20 ML (DIPRIVAN) VIAL IV ONE (08:20)
[2017-04-24] MEDS ORDERED: ONDANSETRON 4 MG/2 ML (SDV) Z0FRAN ONE (08:21)
[2017-04-24] MEDS ORDERED: MIDAZOLAM 2 MG/2 ML (VERSED) VIAL ONE (08:21)
[2017-04-24] MEDS ORDERED: FAMOTIDINE 20MG/2ML IV (PEPCID) ONE (08:21)
[2017-04-24] MEDS ORDERED: fentaNYL INJECTION 100 MCG/2 ML AMP ONE (08:21)
[2017-04-24] MEDS ORDERED: SUCCINYLCHOLINE INJ 100 MG/5 ML SYR ONE (08:22)
[2017-04-24] MEDS ORDERED: LIDOCAINE PF 2% 5 ML (XYLOCAINE) VIAL ONE ×2 (08:22→08:30)
--- NOTE | 2017-04-24 08:41 | Progress Note-Pre Operative ---
Pre-Operative Progress Note H&P Reviewed The H&P was reviewed, patient examined and no changes noted. Date Seen by Provider: Apr 24, 2017 Time Seen by Provider: 08:40 Date H&P Reviewed: Apr 24, 2017 Time H&P Reviewed: 08:40 Pre-Operative Diagnosis: lymphadenopathy KENZIE HERNANDEZ DO Apr 24, 2017 08:41
[2017-04-24] MEDS ORDERED: LACTATED RINGERS 1,000 ML IV STA (09:02)
[2017-04-24] MEDS ORDERED: ROCURONIUM 50 MG/5 ML (ZEMURON) VIAL IV ONE (09:07)
[2017-04-24] MEDS ORDERED: NEOSTIGMINE (BLOXIVERZ ) 1 MG/1ML 10 ML VIAL ONE (09:26)
[2017-04-24] MEDS ORDERED: GLYCOPYRROLATE 0.2 MG/ML (ROBINUL) 2 ML VIAL ONE (09:26)
[2017-04-24] MEDS ORDERED: LACTATED RINGERS 1,000 ML IV ONE (09:37)
--- NOTE | 2017-04-24 09:38 | Pulmonary Procedures ---
Pulmonary Procedures Date of Procedure Date of Service: Apr 24, 2017 Bronch Bronchoscopy with bronchoalveolar lavage (BAL), transbronchial forcep bx, transbronchial washes and, brushes. Preop DX lung mass with MLA Postop DX: same + right bronchus intermedius mass (pictures taken) Complications: persistent hypoxia difficult to ventilate. After patient was sedated per anesthesia she became hypoxic and was difficult to ventilate.. Bronchoscope was advanced through the ET tube. 1% lid bronchoalveolar lavage (BAL), transbronchial washes and, brushes were obtained. Right bronchus intermedius mass noted. (pictures taken) . bronchoalveolar lavage (BAL), transbronchial forcep bx, transbronchial washes and, brushes were obtained. Stat CXR is pending. Procedure had to be stopped early secondary to hypoxia and EBUS was not done secondary to difficultly ventilate, oxygenate patient. I am also going to give her 125mg of Solumedrol. Will reevaluate after pt is awake to see if she needs to be admitted. KENZIE HERNANDEZ DO Apr 24, 2017 09:38
[2017-04-24] MEDS ORDERED: methylPREDNISolone 125 MG (Solu-MEDROL) VIAL IVP NR (09:43)
[2017-04-24] MEDS ORDERED: methylPREDNISolone 125 MG (Solu-MEDROL) VIAL IV ONE (10:00)
--- NOTE | 2017-04-24 11:23 | Diagnostic Imaging Report ---
EXAMINATION: Portable upright radiograph of the chest. INDICATION: Post bronchoscopy. FINDINGS: There is patchy infiltrates in the right lower lobe increased compared to 04/10/2017. There is also a spiculated nodule which appears more prominent in the right lung apex compared to 04/10/2017. The heart size is normal. There is mild pulmonary vascular congestion and likely chronic background interstitial thickening. Tiny right effusion might be present. No effusion on the left is seen. No pneumothorax. There is background emphysema seen. IMPRESSION: Increasing right basilar infiltrates. Spiculated nodule in the right lung apex. Emphysema. Dictated by: Dictated on workstation # [id number]
[2017-04-24] MEDS ORDERED: PRED10TA22 PO ×2 (12:39)
[2017-04-24] MEDS ORDERED: CEFD300C3 PO ×2 (12:39)
== END 2017-04-24 13:05 | disposition home or self-care (01) ==
LOC: ENDO 08:01 → ICU 10:10 → ENDO 13:05
PROVIDERS: ATTEND Internal Medicine Critical Care Medicine
DX: C34.11 Malignant neoplasm of upper lobe, right bronchus or lung (principal); F17.210 Nicotine dependence, cigarettes, uncomplicated; Z79.899 Other long term (current) drug therapy; J44.9 Chronic obstructive pulmonary disease, unspecified; E78.00 Pure hypercholesterolemia, unspecified; I10 Essential (primary) hypertension; K21.9 Gastro-esophageal reflux disease without esophagitis
CPT/HCPCS: 71010; 87070; 87077; 87101; 87106; 87116; 87186; 87205; 88112; 88305; 88312; 88344

== ENCOUNTER 2017-05-03 10:01 | Outpatient (CLI) | payer MEDICARE ==
[~2017-05-03] VITALS: Ht 162.6 cm; Wt 55.5 kg
[~2017-05-03 10:01] MED LIST changes: +CEFD300C3 PO; -LACTATED RINGERS 1,000 ML IV ONE; +PRED10TA22 PO
[2017-05-14] MEDS ORDERED: PROMETHAZINE GEL TP (17:19)
[2017-05-14] MEDS ORDERED: SUCR1TAB PO (17:19)
[2017-05-23] MEDS ORDERED: POLY17PO23 PO (09:38)
[2017-05-24] MEDS ORDERED: FENT1PAT58 TD (09:41)
[2017-05-24] MEDS ORDERED: ONDA8TAB6 PO (09:43)
[2017-05-24] MEDS ORDERED: PROM25TA14 PO (09:45)
[2017-05-24] MEDS ORDERED: TRAM50TA2 PO (10:22)
== END 2017-05-03 10:08 ==
LOC: PREOP 10:01
PROVIDERS: ATTEND Surgery
DX: Z01.818 Encounter for other preprocedural examination (principal); Z12.11 Encounter for screening for malignant neoplasm of colon; C34.90 Malignant neoplasm of unspecified part of unspecified bronchus or lung

== ENCOUNTER 2017-05-07 07:58 | Day surgery (SDC) | payer MEDICARE, OTHER ==
[~2017-05-07] VITALS: Ht 162.6 cm; Wt 55.5 kg
[2017-05-07] MEDS ORDERED: LACTATED RINGERS 1,000 ML IV STA (08:06)
[2017-05-07 08:22] VITALS: BP 114/79
[2017-05-07] MEDS ORDERED: FAMOTIDINE 20MG/2ML IV (PEPCID) ONE (08:51)
[2017-05-07] MEDS ORDERED: PROPOFOL INJECTION 50 ML IV ONE (09:24)
[2017-05-07] MEDS ORDERED: MIDAZOLAM 2 MG/2 ML (VERSED) VIAL ONE (09:24)
--- NOTE | 2017-05-07 09:27 | Progress Note-Pre Operative ---
Pre-Operative Progress Note H&P Reviewed The H&P was reviewed, patient examined and no changes noted. Time Seen by Provider: 09:08 Date H&P Reviewed: May 07, 2017 Time H&P Reviewed: 09:12 Pre-Operative Diagnosis: colonic mass LUCIANA WHIPPLE DO May 07, 2017 09:27
[2017-05-07] MEDS ORDERED: FAMOTIDINE 20MG/2ML IV (PEPCID) IVP ONE (09:30)
--- NOTE | 2017-05-07 10:27 | Progress Note-Post Operative ---
Post-Operative Progess Note Surgeon (s)/Director It Project (s) Surgeon LUCIANA WHIPPLE DO Director It Project: none Pre-Operative Diagnosis colonic mass Post-Operative Diagnosis Cecal mass colon polyp internal hemorrhoid Procedure & Operative Findings Date of Procedure 05/07/17 Procedure Performed/Findings Colon with snare colon with polypectomy Anesthesia Type IV sedation by AIR TRAFFIC CONTROL SUPERVISOR Estimated Blood Loss Estimated blood loss (mL): scant Specimens/Packing Specimens Removed cecal bx splenic flexure polyp rectal polyp LUCIANA WHIPPLE DO May 07, 2017 10:27
--- NOTE | 2017-05-07 10:29 | Endoscopy Discharge Instruct ---
Endo Procedure/Findings Findings 1.: Polyp 2.: Internal Hemorrhoids Discharge Instructions - Activity: You might feel a little sleepy until tomorrow. This is due to the medicine you received to relax you. Until tomorrow, you should: NOT drive a car, operate machinery or power tools. NOT drink any alcoholic beverages. NOT make any important decisions or sign importortant papers. Do not return to work until tomorrow, unless otherwise instructed. Resume previous activities tomorrow. Diet: Start by taking liquids. If you tolerate liquids, advance to solid food. Call for appointment; in one week, [phone] Notify Physician - If you experience excessive bleeding, unusual abdominal pain, fever, or chest pain, contact your doctor immediately. [phone] Follow-Up: - I have received and understand the above instructions and will call my doctor if I have any further questions. Patient Signature Date Nurse Signature Other (Relationship) LUCIANA WHIPPLE DO May 07, 2017 10:29
[2017-05-07 10:40] VITALS: BP 112/73
[2017-05-07 11:10] VITALS: BP 105/69
[2017-05-07 11:25] VITALS: BP 105/69
--- NOTE | 2017-05-08 14:01 | OPERATIVE REPORT ---
DATE OF SERVICE: 05/07/2017 PREOPERATIVE DIAGNOSES: 1. Colon mass. 2. Lung cancer. POSTOPERATIVE DIAGNOSES: 1. Cecal mass. 2. Colon polyps. 3. Internal hemorrhoids. PROCEDURES: 1. Colonoscopy with snare polypectomy. 2. Colonoscopy with hot biopsy. SURGEON: Dr. Knutson. TRANSFER AND PUMPHOUSE OPERATOR CHIEF: None. ANESTHESIA: IV sedation by CREATIVE ART THERAPIST. BLOOD LOSS: Scant. SPECIMEN: 1. Cecal biopsy. 2. Splenic flexure polyp. 3. Rectal polyp. FLUIDS: Per anesthesia. POSTOPERATIVE CONDITION: Stable. INDICATION FOR PROCEDURE: The patient is a 61-year-old female who unfortunately was recently diagnosed with colonoscopy and during the workup, a CT showed what possibly could be a colon mass, possibly an apple core lesion in the descending colon and she has never had a colonoscopy and needed a workup. FINDINGS: The patient actually had multiple flat polyps in the cecum, as well she had a polyp at the splenic flexure had a rectal polyp and she had some internal hemorrhoids. PROCEDURE NOTE: After informed consent was obtained, the patient was brought to the endoscopy suite, placed in the bed in the left lateral decubitus position. She was administered IV sedation and her vitals were monitored the entire time by the CREATIVE ART THERAPIST. Inserted the colonoscope, pushed all the way about 150 cm, able to get to the cecum. In the cecum noted a bunch of flat polyps, took a picture of this and then did a couple of hot biopsies to take pieces of this to send to pathology and then slowly withdrew the scope insufflating to look circumferentially while looking at the cecum, up the ascending colon to the hepatic flexure and then down the transverse colon to the splenic flexure. In the splenic flexure, saw another polyp. It was a larger polyp on a stalk, so I elected to do a snare polypectomy. I did the snare polypectomy and then continued down the descending colon into the sigmoid and finally into the rectum. In the rectum saw another polyp. Elected to do a snare polypectomy of this as well and then retroflexed in the rectal vault. I saw some internal hemorrhoids, took a picture and then removed the scope. Did not see any mass or inflammation or ulcers in the descending colon where the possible apple core lesion was. The patient tolerated the procedure. She was recovered in the endoscopy suite. Job ID: [id number] DocumentID: [id number] Dictated Date: 05/08/2017 09:33:22 Guitar Repairer Date: 05/08/2017 14:00:43 Dictated By: LUCIANA KNUTSON DO
[2017-05-14] MEDS ORDERED: SUCR1TAB PO (17:19)
[2017-05-14] MEDS ORDERED: PROMETHAZINE GEL TP (17:19)
[2017-05-23] MEDS ORDERED: POLY17PO23 PO (09:38)
[2017-05-24] MEDS ORDERED: FENT1PAT58 TD (09:41)
[2017-05-24] MEDS ORDERED: ONDA8TAB6 PO (09:43)
[2017-05-24] MEDS ORDERED: PROM25TA14 PO (09:45)
[2017-05-24] MEDS ORDERED: TRAM50TA2 PO (10:22)
== END 2017-05-07 11:25 | disposition home or self-care (01) ==
LOC: ENDO 07:58
PROVIDERS: ATTEND Surgery
DX: D12.0 Benign neoplasm of cecum (principal); D12.3 Benign neoplasm of transverse colon; K62.1 Rectal polyp; K64.8 Other hemorrhoids; C34.90 Malignant neoplasm of unspecified part of unspecified bronchus or lung; J44.9 Chronic obstructive pulmonary disease, unspecified; I87.2 Venous insufficiency (chronic) (peripheral); R53.83 Other fatigue; I10 Essential (primary) hypertension; F32.9 Major depressive disorder, single episode, unspecified; M79.7 Fibromyalgia; Z87.891 Personal history of nicotine dependence; Z79.899 Other long term (current) drug therapy
CPT/HCPCS: 88305

== ENCOUNTER → 2017-05-07 | Outpatient (CLI) | payer MEDICARE | LOC: RAD 11:26 | PROVIDERS: ATTEND Nurse Practitioner Family | DX: C34.90 Malignant neoplasm of unspecified part of unspecified bronchus or lung (principal); Z53.29 Procedure and treatment not carried out because of patient's decision for other reasons ==

== ENCOUNTER → 2017-06-04 | Outpatient (CLI) | payer MEDICARE ==
[~2017-06-04] MED LIST changes: +FENT1PAT58 TD; +ONDA8TAB6 PO; +POLY17PO23 PO; +PROMETHAZINE GEL TP; +SUCR1TAB PO; +TRAM50TA2 PO
--- NOTE | 2017-06-04 17:54 | Diagnostic Imaging Report ---
EXAMINATION: PET-CT TECHNIQUE: Serum glucose level at the time of the study is: 108 mg/dL. 13.1 mCi of FDG was administered intravenously followed by obtaining PET images with corresponding noncontrast CT scan images. The CT scan was performed for anatomic correlation and attenuation correction and was not performed according to the diagnostic protocol of the areas covered. The scan was performed from the head to mid thighs. INDICATION: Jon-xsfmd-xmvw lung cancer. FINDINGS: The patient has a known posterior fossa mass. There is corresponding area of slightly higher uptake than the baseline significant brain FDG uptake seen, presumably related to the posterior fossa mass. This could be metastatic although that is not definitive. There is a peripheral right upper lobe irregular mass seen with increased FDG uptake and maximum SUV of 6 likely representing the primary lung cancer. The mass is 3.1 x 1.6 cm in maximum axial dimensions, similar measurements to 04/11/2017. There are intensely hypermetabolic right hilar and mediastinal masses presumably related to lymph node spread of the tumor. This appears to compress the distal aspect of the right mainstem bronchus without significant atelectasis or consolidation seen in the right lung seen at this time. The right hilar and mediastinal lymphadenopathy has intense hypermetabolic activity with SUV of 9 in the infracarinal region and 9.5 in the right paratracheal node. There is also right paraesophageal upper thoracic lymph node masses measuring 12 in its maximum SUV and another right paraesophageal lymph nodes posterior to the trachea near the thoracic inlet with maximum SUV of 10.5. These appear to be larger compared to CT from 04/10/2017 with right paraesophageal lymph node measuring 1.6 x 1.2 compared to 1.3 x 1 cm on the previous exam. There is in addition mild hypermetabolism in the left upper lobe with maximum SUV of 0.2 corresponding to a nonspecific nodular density. This is potentially related to focal pneumonitis with no definitive metastasis in the left lung. The abdomen and pelvis demonstrate prominent FDG activity in the urinary tract, physiologic. No suspicious hypermetabolic mass is seen otherwise. There is a question of invasion into the esophagus related to one of the paraesophageal lymph nodes. IMPRESSION: 1. Findings suggestive of primary lung cancer in the right upper lobe with metastatic right hilar, and mediastinal nodes including right paraesophageal upper thoracic nodes abutting the posterior margin of the trachea. 2. There is question of invasion into the esophagus from one of the right paraesophageal lymph nodes. Consider correlation with endoscopy if needed. 3. There is a hypermetabolism higher than the surrounding brain seen in the posterior fossa, presumably corresponding to the mass seen on recent CT and the MRI of the brain. This could be metastatic or related to a primary brain tumor. Dictated by: Dictated on workstation # [id number]
== END ==
LOC: RAD 09:47
PROVIDERS: ATTEND Nurse Practitioner Family
DX: C34.11 Malignant neoplasm of upper lobe, right bronchus or lung (principal); D49.6 Neoplasm of unspecified behavior of brain; R59.0 Localized enlarged lymph nodes

== ENCOUNTER 2017-06-28 05:32 | Outpatient (CLI) | payer MEDICARE ==
[~2017-06-28] VITALS: Ht 162.6 cm; Wt 45.6 kg
[2017-06-28] MEDS ORDERED: DIAZ10TA PO (10:37)
[2017-06-28] MEDS ORDERED: HYDR-3820 PO (10:37)
[2017-06-28] MEDS ORDERED: ALPR1TAB2 PO (10:37)
== END 2017-06-28 10:53 ==
LOC: PREOP 05:32
PROVIDERS: ATTEND Surgery
DX: Z01.818 Encounter for other preprocedural examination (principal); C34.11 Malignant neoplasm of upper lobe, right bronchus or lung; C79.31 Secondary malignant neoplasm of brain

== ENCOUNTER 2017-07-02 12:29 | Inpatient (IN) | payer MEDICARE ==
[~2017-07-02] VITALS: Ht 162.6 cm; Wt 50.3 kg
[~2017-07-02 12:29] MED LIST changes: +ALPR1TAB2 PO; +DIAZ10TA PO; +HYDR-3820 PO
[2017-07-02] MEDS ORDERED: NS IV 1000 ML 1,000 ML IV ONE (12:42)
[2017-07-02] MEDS ORDERED: ONDANSETRON 4 MG/2 ML (SDV) Z0FRAN IVP ONE (12:45)
[2017-07-02 12:59] LABS: BASOPHILS % (AUTO) 0 % (0-10); EOSINOPHILS # (AUTO) 0.1 10^3/uL (0.0-0.3); EOSINOPHILS % (AUTO) 1 % (0-10); LYMPHOCYTES # (AUTO) 0.6 X 10^3 (1.0-4.0); LYMPHOCYTES % (AUTO) 5 % (12-44); MEAN CORPUSCULAR HEMOGLOBIN 30 PG (25-34); MEAN CORPUSCULAR HGB CONC 34 G/DL (32-36); MEAN CORPUSCULAR VOLUME 88 FL (80-99); MEAN PLATELET VOLUME 9.8 FL (7.4-10.4); MONOCYTES # (AUTO) 0.7 X 10^3 (0.0-1.0); MONOCYTES % (AUTO) 6 % (0-12); NEUTROPHILS # (AUTO) 10.1 X 10^3 (1.8-7.8); NEUTROPHILS % (AUTO) 88 % (42-75); PLATELET COUNT 279 10^3/uL (130-400); RED CELL DISTRIBUTION WIDTH 15.2 % (10.0-14.5); WHITE BLOOD COUNT 11.4 10^3/uL (4.3-11.0)
[2017-07-02 13:22] LABS: ALANINE AMINOTRANSFERASE 12 U/L (0-55); ANION GAP 12 MMOL/L (5-14); ASPARTATE AMINO TRANSFERASE 11 U/L (5-34); BILIRUBIN,TOTAL 0.4 MG/DL (0.1-1.0); BLOOD UREA NITROGEN 13 MG/DL (7-18); BUN/CREATININE RATIO 24; CARBON DIOXIDE 24 MMOL/L (21-32); CHLORIDE 102 MMOL/L (98-107); CREATININE SERUM 0.54 MG/DL (0.60-1.30); GFR ESTIMATED > 60; GLUCOSE 150 MG/DL (70-105); LIPASE 383 U/L (8-78); POTASSIUM 3.9 MMOL/L (3.6-5.0); SODIUM 138 MMOL/L (135-145); TOTAL PROTEIN 5.2 GM/DL (6.4-8.2)
[2017-07-02 13:29] LABS: BAND NEUTROPHILS 1 %; LYMPHOCYTES % (MANUAL) 7 %; NEUTROPHILS % (MANUAL) 90 %
[2017-07-02] MEDS ORDERED: fentaNYL INJECTION 100 MCG/2 ML AMP IVP ONE ×2 (13:30→15:30)
[2017-07-02] MEDS ORDERED: NS 100 ML (IVPB) BAG IV ONE (13:45)
[2017-07-02] MEDS ORDERED: IOHEXOL 350 MG/ML 100 ML (OMNIPAQUE 350) VIAL IV ONE (13:45)
--- NOTE | 2017-07-02 14:28 | Diagnostic Imaging Report ---
PROCEDURE: CT abdomen and pelvis with contrast. TECHNIQUE: Multiple contiguous axial images were obtained through the abdomen and pelvis after administration of intravenous contrast. INDICATION: Abdominal pain. COMPARISON: PET/CT of 06/04/2017 is reviewed. FINDINGS: There is a new small to moderate right pleural effusion with right basilar minimal atelectasis. The liver, the spleen and the right adrenal gland appear unremarkable. The left adrenal gland demonstrates mild nonspecific thickening. Calcified gallstones are seen with no CT evidence of cholecystitis. There is mild peripancreatic stranding noted. Correlate for possible pancreatitis. The kidneys have symmetric enhancement and excretion. There is no hydronephrosis. The abdominal aorta is normal in caliber. No para-aortic significantly enlarged lymph node is seen. There is moderate amounts of fecal material in the colon. There is suggestion of prior hysterectomy. No significant free fluid or fluid collection in the abdomen or pelvis is identified. The osseous structures demonstrate degenerative changes in the lower lumbar spine. IMPRESSION: 1. There is peripancreatic fatty stranding may relate to mild pancreatitis. Correlate with pancreatic enzymes. 2. Calcified gallstones with no evidence of cholecystitis. 3. Small to moderate right pleural effusion. Dictated by: Dictated on workstation # [id number]
--- NOTE | 2017-07-02 14:36 | ED Abdominal Pain ---
General Chief Complaint: Abdominal/GI Problems Stated Complaint: ABD PAIN Nursing Triage Note: TO ED PER EMS [facility]. PMH CA OF LUNG TO METS TO BRAIN. ONSET OF LOW ABD PAIN THIS AM. NOT STARTED ANY CHEMO OR RADIATION Sepsis Screen: No Definite Risk Source of Information: Patient, Family, Old Records Exam Limitations: No Limitations History of Present Illness Time Seen By Provider: 12:31 Initial Comments This 62-year-old woman presents to the emergency room via EMS for reasons of severe abdominal pain. Pain became severe enough today she felt necessary to call an ambulance. She is a patient of the [facility] clinic and Dr. Hyde who is currently being assessed and treated for metastatic adenocarcinoma of the lung. She has metastatic disease to the brain. She has been undergoing radiation therapy and is anticipated to start chemotherapy in the near future. She has nausea but denies diarrhea or constipation. She is afebrile. Her abdomen is exquisitely tender. Patient is alert but very somnolent and mentation is dulled. Allergies and Home Medications Allergies Coded Allergies: Sulfa (Sulfonamide Antibiotics) (Verified Allergy, Unknown, HIVES, ) morphine (Unverified Adverse Reaction, Mild, NAUSEA, 06/28/17) Home Medications Alprazolam 1 Mg Tablet, 1 MG PO TID, (Reported) Diazepam 10 Mg Tablet, 10 MG PO BID, (Reported) Diazepam 10 Mg Tablet, 5 MG PO BID, (Reported) Esomeprazole Magnesium 20 Mg Capsule.dr, 20 MG PO DAILY, (Reported) Famotidine 20 Mg Tablet, 20 MG PO BID PRN for HEARTBURN, (Reported) Fluoxetine HCl 20 Mg Capsule, 20 MG PO BID, (Reported) Hydrocodone/Acetaminophen 1 Each Tablet, 1 EACH PO BID, (Reported) Ondansetron HCl 8 Mg Tablet, 8 MG PO Q8H for 30 Days, #30 Ref 1 Prescribed by: LUÍS HYDE on 05/24/17 0943 Sucralfate 1 Gm Tablet, 1 GM PO ACHS, (Reported) Tizanidine HCl 4 Mg Tablet, 4 MG PO BID, (Reported) Review of Systems Constitutional: weight loss EENTM: No Symptoms Reported Respiratory: See HPI Cardiovascular: No Symptoms Reported Gastrointestinal: See HPI Genitourinary: No Symptoms Reported Musculoskeletal: no symptoms reported Skin: no symptoms reported Psychiatric/Neurological: See HPI Endocrine: No Symptoms Reported Hematologic/Lymphatic: See HPI Past Zygpfrt-Qpuwqt-Qvifxa Hx Patient Social History Alcohol Use: Denies Use Recreational Drug Use: No Smoking Status: Former Smoker Type Used: Cigarettes Former Smoker, Quit: Apr 12, 2017 2nd Hand Smoke Exposure: Yes Recent Foreign Travel: No Contact w/Someone Who Travel: No Recent Infectious Disease Expo: No Recent Hopitalizations: No Immunizations Up To Date Tetanus Booster (TDap): Unknown PED Vaccines UTD: No Seasonal Allergies Seasonal Allergies: No Surgeries History of Surgeries: Yes (D&C X 2, hemorrhoidectomy) Surgeries: Section, Hysterectomy Respiratory History of Respiratory Disorde: Yes (LUNG CA W/METS, O2 2L) Respiratory Disorders: COPD Currently Using CPAP: No Currently Using BIPAP: No Cardiovascular History of Cardiac Disorders: Yes (TRICUSPID REGERG) Cardiac Disorders: High Cholesterol, Hypertension Neurological History of Neurological Disord: No Reproductive System Hx Reproductive Disorders: No Sexually Transmitted Disease: No HIV/AIDS: No Female Reproductive Disorders: Denies TREATING PLANT PUMPER History: Hysterectomy Genitourinary History of Genitourinary Disor: Yes (YEAST INFECTION WITH ABX) Gastrointestinal History of Gastrointestinal Di: Yes Gastrointestinal Disorders: Gastroesophageal Reflux, Hemorrhoids Musculoskeletal History of Musculoskeletal Dis: Yes Musculoskeletal Disorders: Fibromyalgia Endocrine History of Endocrine Disorders: No HEENT History of HEENT Disorders: No Loss of Vision: Bilateral Hearing Impairment: Denies Cancer History of Cancer: Yes (METASTATIC) Cancer: Lung Did You Recieve Any Treatments: No Type of Tx Receive: Radiation Psychosocial History of Psychiatric Problem: Yes Behavioral Health Disorders: Anxiety, Depression Integumentary History of Skin or Integumenta: No Blood Transfusions History of Blood Disorders: No Adverse Reaction to a Blood Tr: No (HAS HAD BLOOD WITH NO REACTION) Family Medical History Family Medial History: Patient reports no known family medical history. Physical Exam Vital Signs VS - Last 72 Hours, by Label 07/02/17 12:29 Temp 98.9 Pulse 91 Resp 18 B/P (MAP) 103/71 Pulse Ox 97 O2 Delivery Room Air Capillary Refill : Less Than 3 Seconds General Appearance: WD/WN, cachetic HEENT: PERRL/EOMI, normal ENT inspection, pharynx normal Respiratory: lungs clear, normal breath sounds, no respiratory distress, no accessory muscle use Cardiovascular: regular rate, rhythm, no edema, no murmur Gastrointestinal: soft, abnormal bowel sounds (decreased bowel sounds), tenderness (exquisitely tender throughout the abdomen) Extremities: normal inspection, no pedal edema Neurologic/Psychiatric: applications instructor II-XII nml as tested, no motor/sensory deficits, alert, motor weakness (generalized), other (somnolent with dulled mentation) Skin: warm/dry, pallor Progress/Results/Core Measures Results/Orders Lab Results Laboratory Tests Test 07/02/17 12:50 Range/Units White Blood Count 11.4 H 4.3-11.0 10^3/uL Red Blood Count 4.40 4.35-5.85 10^6/uL Hemoglobin 13.1 11.5-16.0 G/DL Hematocrit 39 35-52 % Mean Corpuscular Volume 88 80-99 FL Mean Corpuscular Hemoglobin 30 25-34 PG Mean Corpuscular Hemoglobin Concent 34 32-36 G/DL Red Cell Distribution Width 15.2 H 10.0-14.5 % Platelet Count 279 130-400 10^3/uL Mean Platelet Volume 9.8 7.4-10.4 FL Neutrophils (%) (Auto) 88 H 42-75 % Lymphocytes (%) (Auto) 5 L 12-44 % Monocytes (%) (Auto) 6 0-12 % Eosinophils (%) (Auto) 1 0-10 % Basophils (%) (Auto) 0 0-10 % Neutrophils # (Auto) 10.1 H 1.8-7.8 X 10^3 Lymphocytes # (Auto) 0.6 L 1.0-4.0 X 10^3 Monocytes # (Auto) 0.7 0.0-1.0 X 10^3 Eosinophils # (Auto) 0.1 0.0-0.3 10^3/uL Basophils # (Auto) 0.0 0.0-0.1 10^3/uL Neutrophils % (Manual) 90 % Lymphocytes % (Manual) 7 % Monocytes % (Manual) 2 % Eosinophils % (Manual) % Band Neutrophils 1 % Toxic Granulation 1+ Blood Morphology Comment NORMAL Sodium Level 138 135-145 MMOL/L Potassium Level 3.9 3.6-5.0 MMOL/L Chloride Level 102 98-107 MMOL/L Carbon Dioxide Level 24 21-32 MMOL/L Anion Gap 12 5-14 MMOL/L Blood Urea Nitrogen 13 7-18 MG/DL Creatinine 0.54 L 0.60-1.30 MG/DL Estimat Glomerular Filtration Rate > 60 BUN/Creatinine Ratio 24 Glucose Level 150 H 70-105 MG/DL Calcium Level 9.0 8.5-10.1 MG/DL Total Bilirubin 0.4 0.1-1.0 MG/DL Aspartate Amino Transf (AST/SGOT) 11 5-34 U/L Alanine Aminotransferase (ALT/SGPT) 12 0-55 U/L Alkaline Phosphatase 144 H 40-136 U/L Total Protein 5.2 L 6.4-8.2 GM/DL Albumin 3.0 L 3.2-4.5 GM/DL Lipase 383 H 8-78 U/L My Orders Orders - VIANCA DERAS MD Cbc With Automated Diff (07/02/17 12:42) Comprehensive Metabolic Panel (07/02/17 12:42) Lipase (07/02/17 12:42) Ua Culture If Indicated (07/02/17 12:42) Saline Lock/Iv-Start (07/02/17 12:42) Ns Iv 1000 Ml (Sodium Chloride 0.9%) (07/02/17 12:42) Ondansetron Injection (Zofran Injectio (07/02/17 12:45) Manual Differential (07/02/17 12:50) Fentanyl Injection (Sublimaze Injection (07/02/17 13:30) Ct Abdomen/Pelvis W (07/02/17 13:31) Iohexol Injection (Omnipaque 350 Mg/Ml 1 (07/02/17 13:45) Ns (Ivpb) (Sodium Chloride 0.9% Ivpb Bag (07/02/17 13:45) Medications Given in ED Current Medications Medications Dose Ordered Sig/Portia Route Start Time Stop Time Status Last Admin Dose Admin Fentanyl Citrate 25 mcg ONCE ONCE IVP 07/02/17 13:30 07/02/17 13:31 DC 07/02/17 13:33 25 MCG Iohexol 100 ml ONCE ONCE IV 07/02/17 13:45 07/02/17 13:46 DC 07/02/17 13:49 100 ML Ondansetron HCl 4 mg ONCE ONCE IVP 07/02/17 12:45 07/02/17 12:46 DC 07/02/17 13:01 4 MG Sodium Chloride 100 ml ONCE ONCE IV 07/02/17 13:45 07/02/17 13:46 DC 07/02/17 13:49 80 ML Sodium Chloride 1,000 ml @ 0 mls/hr Q0M ONCE IV 07/02/17 12:42 07/02/17 12:43 DC 07/02/17 13:33 1,000 MLS/HR Vital Signs/I&O Vital Sign - Last 12Hours 07/02/17 12:29 Temp 98.9 Pulse 91 Resp 18 B/P (MAP) 103/71 Pulse Ox 97 O2 Delivery Room Air Blood Pressure Mean: 82 Progress Note : Progress Note After review of labs, CT of the abdomen and pelvis with contrast was ordered. Pancreatitis was noted in both the lab and CT. Patient was treated with fentanyl, Zofran, and IV fluids. Dr. Ling presented to the ER to evaluate patient prior to admission. Diagnostic Imaging Diagonstic Imaging: CT Plain Films/CT/US/NM/MRI: abdomen, pelvis Comments CT abdomen and pelvis viewed by me and report reviewed. See report below: NAME: ANUPAMA CARBAJAL [facility] REC#: [id number] PT STATUS: REG ER : 1955 PHYSICIAN: VIANCA DERAS MD ADMIT DATE: 07/02/17/ER Draft Date of Exam:07/02/17 CT ABDOMEN/PELVIS W PROCEDURE: CT abdomen and pelvis with contrast. TECHNIQUE: Multiple contiguous axial images were obtained through the abdomen and pelvis after administration of intravenous contrast. INDICATION: Abdominal pain. COMPARISON: PET/CT of 06/04/2017 is reviewed. FINDINGS: There is a new small to moderate right pleural effusion with right basilar minimal atelectasis. The liver, the spleen and the right adrenal gland appear unremarkable. The left adrenal gland demonstrates mild nonspecific thickening. Calcified gallstones are seen with no CT evidence of cholecystitis. There is mild peripancreatic stranding noted. Correlate for possible pancreatitis. The kidneys have symmetric enhancement and excretion. There is no hydronephrosis. The abdominal aorta is normal in caliber. No para-aortic significantly enlarged lymph node is seen. There is moderate amounts of fecal material in the colon. There is suggestion of prior hysterectomy. No significant free fluid or fluid collection in the abdomen or pelvis is identified. The osseous structures demonstrate degenerative changes in the lower lumbar spine. IMPRESSION: 1. There is peripancreatic fatty stranding may relate to mild pancreatitis. Correlate with pancreatic enzymes. 2. Calcified gallstones with no evidence of cholecystitis. 3. Small to moderate right pleural effusion. Dictated on workstation # [id number] Dict: 07/02/17 1413 Trans: 07/02/17 1427 [id number] Interpreted by: SIXTO ANDRADE MD Departure Communication (Admissions) Time/Spoke to Admitting Phy: 15:20 Communication Case was reviewed with Dr. Ling who presented to the ER to evaluate the patient. Impression Impression: Primary Impression: Acute pancreatitis Qualified Codes: K85.90 - Acute pancreatitis without necrosis or infection, unspecified Additional Impressions: Lung cancer metastatic to brain Abdominal pain Qualified Codes: R10.9 - Unspecified abdominal pain Disposition: 09 ADMITTED INPATIENT Condition: Improved Admissions Decision to Admit Reason: Admit from ER (General) Decision to Admit/Date: Jul 02, 2017 Time/Decision to Admit Time: 15:20 Departure-Patient Inst. Referrals: ERICKA BOSWELL MD (PCP/Family) Primary Care Physician VIANCA DERAS MD Jul 02, 2017 14:36
--- NOTE | 2017-07-02 15:51 | History & Physical-Hospitalist ---
HPI History of Present Illness: HPI/Chief Complaint Pt is a 62yoCF with a PMH of fibromyalgia and lung cancer with mets to the brain who presented to the ER with CC of abd pain. She is able to provide very little history. Her daughter is at bedside who provides most of the history. She states that her mom has baseline confusion due to her brain mets and recent radiation. Daughter reports her mom had been doing well until today when around 1030am she developed sudden onset abd pain. Pt point to the epigastric and periumbilical area when asked where the pain is. Otherwise she mostly moans. Daughter states she has not vomited or complained of nausea. She report pt has had no diarrhea or constipation and had been eating well. CT in abd showed peripancreatic fat stranding and lipase was elevated. She was admitted for management of pancreatitis. Source: patient, family Exam Limitations: clinical condition Date Seen 07/02/17 Time Seen by Provider: 15:25 Attending Physician Elliott Jauregui MD PCP Elliott Jauregui MD Referring Physician Date of Admission Jul 02, 2017 at 3:25 pm Home Medications & Allergies Home Medications Reviewed patient Home Medication Reconciliation Form Allergies Allergies Coded Allergies Sulfa (Sulfonamide Antibiotics) (Verified Allergy, Unknown, HIVES, 06/28/17) morphine (Unverified Adverse Reaction, Mild, NAUSEA, 06/28/17) Past Lzjadbt-Vymfyq-Ezexop Hx Patient Social History Living Status: daughter live with patient Alcohol Use: Denies Use Recreational Drug Use: No Smoking Status: Former Smoker (40pack year history) Former Smoker, Quit: Apr 12, 2017 Type Used: Cigarettes 2nd Hand Smoke Exposure: Yes Recent Foreign Travel: No Contact w/other who traveled: No Recent Hopitalizations: No Recent Infectious Disease Expo: No Immunizations Up To Date Tetanus Booster (TDap): Unknown Pediatric: No Seasonal Allergies Seasonal Allergies: No Surgeries Yes (D&C X 2, hemorrhoidectomy) Section, Hysterectomy Respiratory Yes (LUNG CA W/METS, O2 2L) COPD Currently Using CPAP: No Currently Using BIPAP: No Cardiovascular Yes (TRICUSPID REGERG) High Cholesterol, Hypertension Neurological Yes (brain mets) Reproductive System Hx Reproductive Disorders: No Sexually Transmitted Disease: No HIV/AIDS: No Female Reproductive Disorders: 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 Genitourinary Yes (YEAST INFECTION WITH ABX) Gastrointestinal Yes Gastroesophageal Reflux, Hemorrhoids Musculoskeletal Yes Fibromyalgia Endocrine History of Endocrine Disorders: No HEENT History of HEENT Disorders: No Loss of Vision: Bilateral Hearing Impairment: Denies Cancer Yes (METASTATIC) Lung Did You Recieve Any Treatments: No Type of Treatment: Radiation Psychosocial History of Psychiatric Problem: Yes Behavioral Health Disorders: Anxiety, Depression Integumentary History of Skin or Integumenta: No Blood Transfusions History of Blood Disorders: No Adverse Reaction to a Blood Tr: No (HAS HAD BLOOD WITH NO REACTION) Family Medical History Family Hx: Patient reports no known family medical history. Review of Systems ROS-Unable to Obtain: limited due to clinical condition Constitutional: No chills, No fever EENTM: no symptoms reported Respiratory: No cough, No short of breath Cardiovascular: No chest pain, No palpitations Gastrointestinal: abdominal pain (epigastric), No constipation, No diarrhea, loss of appetite, No nausea, No vomiting Genitourinary: No dysuria, No frequency Musculoskeletal: No no symptoms reported Skin: no symptoms reported Psychiatric/Neurological: No Symptoms Reported Physical Exam Physical Exam Vital Signs Vital Sign - Last 12Hours 07/02/17 07/02/17 12:29 15:48 Temp 98.9 Pulse 91 Resp 18 B/P (MAP) 103/71 Pulse Ox 97 O2 Delivery Room Air O2 Flow Rate 2.00 Capillary Refill : Less Than 3 Seconds General Appearance: Chronically ill, Mild Distress, Thin HEENT: Moist Mucous Membranes, No Scleral Icterus (L), No Scleral Icterus (R) Neck: Normal Inspection, Supple, No Thyromegaly Respiratory: Lungs Clear, Normal Breath Sounds, No Respiratory Distress Cardiovascular: Regular Rate, Rhythm, No Edema, No JVD, No Murmur Gastrointestinal: Normal Bowel Sounds, Soft, No Distended, Guarding, No Rebound , Tenderness Neurologic/Psychiatric: Alert, Oriented x3 (but slow responses) Results Results/Procedures Lab Laboratory Tests 07/02/17 12:50 Assessment/Plan Admission Diagnosis Pancreatitis Diagnosis/Problems Diagnosis/Problems (1) Acute pancreatitis Status: Acute Assessment & Plan: IVF NPO Fentanyl for pain Qualifiers: Qualified Codes: K85.90 - Acute pancreatitis without necrosis or infection, unspecified (2) Lung cancer metastatic to brain Status: Acute Assessment & Plan: Will consult Oncology Will resume Decadron get brain mets (3) Nausea Status: Acute Assessment & Plan: Denies when asked but also asks for geno-bag Will start decadron, zofran, and phenergan Has had previous admissions for intractable nausea/vomiting likely due to brainstem tumor (4) COPD (chronic obstructive pulmonary disease) Status: Chronic Assessment & Plan: 2lpm oxygen requirement at baseline MAT protocol Qualifiers: Qualified Codes: J44.9 - Chronic obstructive pulmonary disease, unspecified (5) Fibromyalgia Status: Chronic (6) Prophylactic measure Assessment & Plan: NPO NS at 125ml/hr SCDs overnight TIMO LE MD Jul 02, 2017 3:51 pm
[2017-07-02 16:00] VITALS: BP 149/95
[2017-07-02] MEDS ORDERED: RT-ALBUINH IH (16:34)
[2017-07-02] MEDS ORDERED: PROM25TA14 PO (16:34)
[2017-07-02] MEDS ORDERED: ONDA8TAB12 PO (16:34)
[2017-07-02] MEDS ORDERED: ALPR1TAB7 PO (16:34)
[2017-07-02] MEDS ORDERED: RT-ALBUTEROL/IPRATROPIUM 3 ML (DUONEB) VIAL INH PRN (16:45)
[2017-07-02] MEDS: fentaNYL INJECTION 100 MCG/2 ML AMP IVP PRN ×4 (16:53→22:52)
[2017-07-02] MEDS ORDERED: INFLUENZA TRIvalent 2017-2018 0.5 ML/45 MCG SYR IM ONE (17:30)
[2017-07-02] MEDS: NS IV 1000 ML 1,000 ML IV SCH (17:53)
[2017-07-02] MEDS: PANTOPRAZOLE 40 MG/10 ML (PROTONIX) VIAL IV SCH (18:04)
[2017-07-02] MEDS: ONDANSETRON 4 MG/2 ML (SDV) Z0FRAN IVP PRN (18:04)
[2017-07-02] MEDS: SCOPOLAMINE 1.5 MG (TRANSDERM-SCOP) PATCH TOP SCH (18:04)
[2017-07-02] MEDS: RT-ALBUTEROL/IPRATROPIUM 3 ML (DUONEB) VIAL INH SCH ×2 (19:35→22:19)
[2017-07-02 20:00] VITALS: BP 166/108
[2017-07-02] MEDS: DEXAMETHASONE 4 MG/ML SDV (DECADRON) IV SCH (21:35)
[2017-07-02] MEDS: PROMETHAZINE INJ 25 MG/ML (PHENERGAN) AMP IVP PRN (22:52)
[2017-07-03] VITALS: BP 166/84
[2017-07-03] MEDS: NS IV 1000 ML 1,000 ML IV SCH ×4 (01:25→18:23)
[2017-07-03] MEDS: fentaNYL INJECTION 100 MCG/2 ML AMP IVP PRN ×11 (01:26→23:57)
[2017-07-03 02:02] LABS: BILIRUBIN,URINE NEGATIVE (NEGATIVE); KETONES,URINE 3+ (NEGATIVE); LEUKOCYTE ESTERASE ,URINE 2+ (NEGATIVE); NITRITE,URINE NEGATIVE (NEGATIVE); PH,URINE 7 (5-9); PROTEIN,URINE 1+ (NEGATIVE); UROBILINOGEN,URINE NORMAL (NORMAL)
[2017-07-03] MEDS: RT-ALBUTEROL/IPRATROPIUM 3 ML (DUONEB) VIAL INH SCH ×6 (02:58→21:09)
[2017-07-03 04:00] VITALS: BP 168/96
[2017-07-03] MEDS: DEXAMETHASONE 4 MG/ML SDV (DECADRON) IV SCH ×3 (05:26→21:52)
[2017-07-03 05:51] LABS: BASOPHILS % (AUTO) 0 % (0-10); EOSINOPHILS % (AUTO) 0 % (0-10); LYMPHOCYTES # (AUTO) 0.4 X 10^3 (1.0-4.0); LYMPHOCYTES % (AUTO) 5 % (12-44); MEAN CORPUSCULAR HEMOGLOBIN 30 PG (25-34); MEAN CORPUSCULAR HGB CONC 34 G/DL (32-36); MEAN CORPUSCULAR VOLUME 87 FL (80-99); MEAN PLATELET VOLUME 9.9 FL (7.4-10.4); MONOCYTES # (AUTO) 0.5 X 10^3 (0.0-1.0); MONOCYTES % (AUTO) 5 % (0-12); NEUTROPHILS # (AUTO) 8.3 X 10^3 (1.8-7.8); NEUTROPHILS % (AUTO) 90 % (42-75); PLATELET COUNT 272 10^3/uL (130-400); RED BLOOD COUNT 4.21 10^6/uL (4.35-5.85); RED CELL DISTRIBUTION WIDTH 14.9 % (10.0-14.5); WHITE BLOOD COUNT 9.2 10^3/uL (4.3-11.0)
[2017-07-03 06:06] LABS: ANION GAP 10 MMOL/L (5-14); BLOOD UREA NITROGEN 11 MG/DL (7-18); BUN/CREATININE RATIO 21; CALCIUM 8.8 MG/DL (8.5-10.1); CARBON DIOXIDE 24 MMOL/L (21-32); CHLORIDE 105 MMOL/L (98-107); CREATININE SERUM 0.53 MG/DL (0.60-1.30); GFR ESTIMATED > 60; GLUCOSE 148 MG/DL (70-105); POTASSIUM 3.6 MMOL/L (3.6-5.0); SODIUM 139 MMOL/L (135-145)
[2017-07-03] MEDS: ONDANSETRON 4 MG/2 ML (SDV) Z0FRAN IVP PRN ×2 (07:20→16:36)
[2017-07-03 08:00] VITALS: BP 150/102
[2017-07-03] MEDS: PROMETHAZINE INJ 25 MG/ML (PHENERGAN) AMP IVP PRN ×3 (08:15→19:10)
[2017-07-03] MEDS: PANTOPRAZOLE 40 MG/10 ML (PROTONIX) VIAL IV SCH (08:15)
--- NOTE | 2017-07-03 10:19 | Progress Note-Hospitalist ---
Subjective HPI/CC On Admission Date Seen by Provider: Jul 03, 2017 Time Seen by Provider: 08:15 Pt is a 62yoCF with a PMH of fibromyalgia and lung cancer with mets to the brain who presented to the ER with CC of abd pain. She is able to provide very little history. Her daughter is at bedside who provides most of the history. She states that her mom has baseline confusion due to her brain mets and recent radiation. Daughter reports her mom had been doing well until today when around 1030am she developed sudden onset abd pain. Pt point to the epigastric and periumbilical area when asked where the pain is. Otherwise she mostly moans. Daughter states she has not vomited or complained of nausea. She report pt has had no diarrhea or constipation and had been eating well. CT in abd showed peripancreatic fat stranding and lipase was elevated. She was admitted for management of pancreatitis. Subjective/Events-last exam Pt reports persistent abd pain. Otherwise cannot provide much history due to confusion. Denies hunger or desire to eat. No famiy at bedside for further ROS. Per RN patient has seemed uncomfortable most of morning and often writhing. Objective Exam Vital Signs Vital Sign - Last 12Hours 07/02/17 07/02/17 07/02/17 12:29 15:48 16:30 Temp 98.9 Pulse 91 Resp 18 B/P (MAP) 103/71 Pulse Ox 97 O2 Delivery Room Air O2 Flow Rate 2.00 FiO2 21 Capillary Refill : Less Than 3 Seconds General Appearance: Chronically ill, Cachetic, Mild Distress Respiratory: Lungs Clear, No Respiratory Distress Cardiovascular: Regular Rate, Rhythm, No Murmur Gastrointestinal: Normal Bowel Sounds, Soft, No Distended, Guarding Extremity: Non Tender, No Calf Tenderness, No Pedal Edema Neurologic/Psychiatric: Alert, Other (oriented x3 but slow responses) Results/Procedures Lab Laboratory Tests 07/02/17 12:50 07/03/17 05:34 Assessment/Plan Assessment and Plan Assess & Plan/Chief Complaint Pancreatitis Diagnosis/Problems Diagnosis/Problems (1) Acute pancreatitis Status: Acute Assessment & Plan: IVF NPO Fentanyl for pain Will increase dose Continue IV Protonix Qualifiers: Qualified Codes: K85.90 - Acute pancreatitis without necrosis or infection, unspecified (2) Lung cancer metastatic to brain Status: Acute Assessment & Plan: Will consult Oncology Resume Decadron get brain mets MRI brain today (3) Nausea Status: Acute Assessment & Plan: Denies when asked but also asks for geno-bag Continue decadron, zofran, scopolamine, and phenergan Has had previous admissions for intractable nausea/vomiting likely due to brainstem tumor (4) COPD (chronic obstructive pulmonary disease) Status: Chronic Assessment & Plan: 2lpm oxygen requirement at baseline MAT protocol Qualifiers: Qualified Codes: J44.9 - Chronic obstructive pulmonary disease, unspecified (5) Fibromyalgia Status: Chronic (6) Prophylactic measure Assessment & Plan: NPO NS at 125ml/hr TIMO Solis MD Jul 03, 2017 10:19
[2017-07-03] MEDS: SUCRALFATE 1 GM (CARAFATE) TAB PO SCH ×3 (11:17→21:52)
[2017-07-03 12:00] VITALS: BP 141/90
[2017-07-03] MEDS ORDERED: GADOBUTROL 7.5 MMOL/7.5 ML (GADAVIST) VIAL IV ONE (12:45)
--- NOTE | 2017-07-03 14:27 | CONSULTATION REPORT ---
DATE OF SERVICE: 07/03/2017 The patient is admitted to room #418. REFERRING PHYSICIAN: Dr. Kassandra Ling. IMPRESSION: 1. A 62-year-old female with a history of metastatic lung cancer to the brain, status post whole brain radiation therapy completed on 05/29/2017. 2. The patient admitted with an increased abdominal pain with questionable pancreatitis. 3. Confusion/dementia, some of which is baseline. RECOMMENDATIONS: 1. Continue management of pancreatitis as you are doing. 2. Continue proton pump inhibitor and may add Carafate because of risk for gastritis as the patient was on steroids for a long time because of brain metastasis and radiation therapy. 3. Obtain an MRI of the brain because of the confusion. 4. If she has evidence of esophagitis, then empirically treat for herpes simplex virus or/and Tania because of prolonged use of steroids. 6. I will follow the patient with you in Dr. Garland's absence. 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 She presented with intractable nausea and vomiting before the diagnosis was made. She was started on high-dose steroids and radiation therapy to the brain. She completed radiation therapy on 05/29/2017 to 3000 cGy and has been weaned off the steroids. She was doing well and was scheduled as an outpatient for a repeat MRI of the brain as well as a port insertion for systemic therapy. The patient developed a fairly rapid onset abdominal pain with nausea and vomiting and was brought to the Emergency Room by her family. She was evaluated and was felt to have probable pancreatitis and then admitted to the hospital. Oncology consultation was requested for concurrent followup. In Dr. Garland's absence, I am covering her oncology patient and hence this consult. The patient is confused today and is resting in bed. She complained of headache, but denied significant abdominal pain today morning on my interview. She is unable to give details other than to point to her head when asked about pain. No other detailed history could be obtained from her. Most of the history was obtained from previous records. Her family was not in the room at the time of interview and exam. PAST MEDICAL HISTORY: Significant for lung cancer diagnosed in 05/2017 as mentioned above with brain metastasis, status post radiation therapy. Other significant history include hypertension and hypercholesterolemia. She has a history of gastroesophageal reflux disease and history of depression. PAST SURGICAL HISTORY: Includes D and C twice, hemorrhoidectomy, , and hysterectomy in the past. SOCIAL HISTORY: The patient is and lives in [place], [place]. Her daughter helps take care of her. She has not been working. She has significant exposure to tobacco use, but quit in 04/2017. Denied any alcohol or other recreational drug use. PHYSICAL EXAMINATION: GENERAL: Today showed elderly female, weak appearing, lying in bed, answers simple questions with one-word answers, but unable to give any details. Does not appear in any acute distress. VITAL SIGNS: Temperature was 99.1, pulse rate of 108, respirations 24, and blood pressure 166/84. HEENT: Normocephalic with alopecia. Extraocular muscles intact. Conjunctivae pink. Oral mucosa is moist without any obvious lesions. NECK: Supple with no JVD. No cervical, supraclavicular, or axillary lymphadenopathy palpable. CHEST: Symmetrical. LUNGS: With slightly diminished breath sounds bilaterally without wheezes or rales. CARDIOVASCULAR: Regular rate and rhythm. No murmurs or gallops noted. ABDOMEN: Soft with mild discomfort in the epigastric area without guarding or rebound. No hepatosplenomegaly or other masses palpable. EXTREMITIES: Showed no edema. NEUROLOGICAL EXAMINATION: Could not be completed other than that the patient is able to move all four extremities and no focal motor weaknesses were noted. LABORATORY DATA: CBC done today showed WBC 9.2, hemoglobin 12.4, and platelet count of with neutrophil count of 8.3 and lymphocyte count of 0.4. Chemistry panel showed normal electrolytes. BUN was 11 and creatinine 0.53 with GFR more than 60 mL per minute. Blood glucose was 148. Liver function studies done yesterday at the time of admission showed alkaline phosphatase slightly elevated at 144 and albumin below normal at 3.0. Total bilirubin was 0.4, AST 11 and ALT 12. Serum lipase was elevated at 383. CT scan of the abdomen and pelvis done at the Emergency Room showed peripancreatic fatty stranding, probably related to mild pancreatitis. Calcified gallstones with no evidence of cholecystitis. Small to moderate right pleural effusion. Thank you for allowing me to participate in this patient's care. I will follow the patient with you. Job ID: [id number] DocumentID: [id number] Dictated Date: 07/03/2017 10:34:10 Loans Consultant Date: 07/03/2017 14:27:23 Dictated By: AKIKO ESPINAL MD
--- NOTE | 2017-07-03 15:02 | Diagnostic Imaging Report ---
PROCEDURE: MR imaging of the brain with and without contrast. TECHNIQUE: Multiplanar, multisequence MR imaging of the brain was performed with and without contrast. INDICATION: Metastatic lung cancer. 4 mL of Gadavist is administered intravenously. COMPARISON: 05/15/2017. FINDINGS: Please note that there is motion artifact degrading. This may decrease sensitivity of detection on this exam particularly for small abnormalities. When compared to the previous exam, there is interval decrease in the size of the posterior fossa mass centered in the fourth ventricle along the posterior aspect of the medulla oblongata. It measures at this point 0.9 x 0.9 x 1.3 cm compared to prior measurements of 1.9 x 1.7 x 2.1 cm. There is also improvement in the previously seen significant edema within the brainstem and cerebellum. There is mild periventricular and deep white matter T2 hyperintense regions in the cerebrum with no associated mass effect or change from the previous exam. No associated postcontrast enhancement as well. These are compatible with chronic microvascular ischemic changes. There is no hydrocephalus. No extra-axial fluid collection seen. The central vascular flow-voids appear grossly unremarkable. The internal auditory canals and inner ear structures appear unremarkable. IMPRESSION: There is significant decrease in the size of the enhancing mass along the posterior aspect of the medulla oblongata measuring now up to 1.3 cm in maximum dimension. There is also near complete resolution of previously seen adjacent edema in the brainstem and cerebellar vermis. No new lesion is identified. Dictated by: Dictated on workstation # [id number]
[2017-07-03 16:00] VITALS: BP 138/81
[2017-07-03 20:00] VITALS: BP 171/94
[2017-07-04] VITALS: BP 184/101
[2017-07-04] MEDS: RT-ALBUTEROL/IPRATROPIUM 3 ML (DUONEB) VIAL INH SCH ×5 (01:35→18:20)
[2017-07-04] MEDS: ONDANSETRON 4 MG/2 ML (SDV) Z0FRAN IVP PRN ×3 (01:54→20:40)
[2017-07-04] MEDS: fentaNYL INJECTION 100 MCG/2 ML AMP IVP PRN ×10 (02:30→20:40)
[2017-07-04] MEDS: NS IV 1000 ML 1,000 ML IV SCH ×3 (02:30→20:40)
[2017-07-04 04:00] VITALS: BP 166/96
[2017-07-04] MEDS: PROMETHAZINE INJ 25 MG/ML (PHENERGAN) AMP IVP PRN ×3 (04:22→14:35)
[2017-07-04 05:35] LABS: BASOPHILS % (AUTO) 0 % (0-10); EOSINOPHILS % (AUTO) 0 % (0-10); LYMPHOCYTES # (AUTO) 0.5 X 10^3 (1.0-4.0); LYMPHOCYTES % (AUTO) 3 % (12-44); MEAN CORPUSCULAR HEMOGLOBIN 30 PG (25-34); MEAN CORPUSCULAR HGB CONC 34 G/DL (32-36); MEAN CORPUSCULAR VOLUME 87 FL (80-99); MEAN PLATELET VOLUME 9.5 FL (7.4-10.4); MONOCYTES % (AUTO) 6 % (0-12); NEUTROPHILS # (AUTO) 14.2 X 10^3 (1.8-7.8); NEUTROPHILS % (AUTO) 91 % (42-75); PLATELET COUNT 270 10^3/uL (130-400); RED BLOOD COUNT 4.19 10^6/uL (4.35-5.85); RED CELL DISTRIBUTION WIDTH 15.2 % (10.0-14.5); WHITE BLOOD COUNT 15.7 10^3/uL (4.3-11.0)
[2017-07-04 05:51] LABS: ANION GAP 10 MMOL/L (5-14); BLOOD UREA NITROGEN 6 MG/DL (7-18); BUN/CREATININE RATIO 13; CALCIUM 8.7 MG/DL (8.5-10.1); CARBON DIOXIDE 26 MMOL/L (21-32); CHLORIDE 102 MMOL/L (98-107); CREATININE SERUM 0.47 MG/DL (0.60-1.30); GFR ESTIMATED > 60; GLUCOSE 105 MG/DL (70-105); SODIUM 138 MMOL/L (135-145)
[2017-07-04] MEDS: SUCRALFATE 1 GM (CARAFATE) TAB PO SCH ×4 (05:57→20:40)
[2017-07-04] MEDS: DEXAMETHASONE 4 MG/ML SDV (DECADRON) IV SCH ×3 (05:57→21:09)
--- NOTE | 2017-07-04 07:16 | Progress Note-Hospitalist ---
Subjective HPI/CC On Admission Date Seen by Provider: Jul 04, 2017 Time Seen by Provider: 07:08 Pt is a 62yoCF with a PMH of fibromyalgia and lung cancer with mets to the brain who presented to the ER with CC of abd pain. She is able to provide very little history. Her daughter is at bedside who provides most of the history. She states that her mom has baseline confusion due to her brain mets and recent radiation. Daughter reports her mom had been doing well until today when around 1030am she developed sudden onset abd pain. Pt point to the epigastric and periumbilical area when asked where the pain is. Otherwise she mostly moans. Daughter states she has not vomited or complained of nausea. She report pt has had no diarrhea or constipation and had been eating well. CT in abd showed peripancreatic fat stranding and lipase was elevated. She was admitted for management of pancreatitis. Subjective/Events-last exam Pt reports feeling better and less confused today. Discussed MRI results. Will continue pain regimen as is. Still does not want to eat. Objective Exam Vital Signs Vital Sign - Last 12Hours 07/02/17 07/02/17 07/02/17 12:29 15:48 16:30 Temp 98.9 Pulse 91 Resp 18 B/P (MAP) 103/71 Pulse Ox 97 O2 Delivery Room Air O2 Flow Rate 2.00 FiO2 21 Capillary Refill : Less Than 3 Seconds General Appearance: No Apparent Distress, WD/WN Respiratory: Lungs Clear, No Respiratory Distress Cardiovascular: Regular Rate, Rhythm, No Murmur Gastrointestinal: Normal Bowel Sounds, Soft, No Distended, No Guarding, Tenderness (improved though) Extremity: Non Tender, No Calf Tenderness Neurologic/Psychiatric: Alert, Oriented x3 (mentation much improved) Results/Procedures Lab Laboratory Tests 07/04/17 05:25 Assessment/Plan Assessment and Plan Assess & Plan/Chief Complaint Pancreatitis Diagnosis/Problems Diagnosis/Problems (1) Acute pancreatitis Status: Acute Assessment & Plan: IVF ADAT- desires to be NPO currently Fentanyl for pain, well controlled Continue IV Protonix Continue Carafate Qualifiers: Qualified Codes: K85.90 - Acute pancreatitis without necrosis or infection, unspecified (2) Lung cancer metastatic to brain Status: Acute Assessment & Plan: Oncology consulted Decadron for brain mets MRI brain should reduced size of tumor (3) Nausea Status: Acute Assessment & Plan: Continue decadron, zofran, scopolamine, and phenergan Has had previous admissions for intractable nausea/vomiting likely due to brainstem tumor (4) COPD (chronic obstructive pulmonary disease) Status: Chronic Assessment & Plan: 2lpm oxygen requirement at baseline MAT protocol Qualifiers: Qualified Codes: J44.9 - Chronic obstructive pulmonary disease, unspecified (5) Fibromyalgia Status: Chronic (6) Hypokalemia Assessment & Plan: Will replace (7) Leukocytosis Status: Acute Assessment & Plan: likely due to steroids no other signs of infection (8) Prophylactic measure Assessment & Plan: NPO- lunchroom monitor switch to CLD as patient wishes NS at 125ml/hr TIMO Solis MD Jul 04, 2017 7:16 am
[2017-07-04 08:00] VITALS: BP 173/96
[2017-07-04] MEDS: PANTOPRAZOLE 40 MG/10 ML (PROTONIX) VIAL IV SCH (09:15)
[2017-07-04] MEDS: POTASSIUM CL 10MEQ/50ML IVPB 50 ML IV SCH ×2 (09:16→10:34)
--- NOTE | 2017-07-04 10:08 | Progress Note-Standard ---
Standard Progress Note Progress Notes/Assess & Plan Date Seen by Provider: Jul 04, 2017 Time Seen by Provider: 09:57 Progress/Assessment & Plan 62 year old female with history of non-small cell lung cancer with metastasis to brain stem, status post radiation therapy completed 05/29/2017. Admitted with acute onset abdominal pain and mental status changes. Initial evaluation suggestive of pancreatitis and on bowel rest. Patient is feeling much better today and is awake and oriented. She is answering questions appropriately and talked to her family on the phone. She still complains of abdominal discomfort intermittently. No history of headaches or visual changes. Vital Sign - Last 12Hours Date Time Temp Pulse Resp B/P (MAP) Pulse Ox O2 Delivery O2 Flow Rate FiO2 07/04/17 08:27 Nasal Cannula 2.00 07/04/17 08:00 98.0 107 20 173/96 93 07/02/17 16:30 21 Physical examination today showed an elderly female, thin appearing, awake and answering questions appropriately, in no acute distress. HEENT normocephalic with alopecia, extraocular muscles intact, conjunctivae pink , oral mucosa is slightly dry without lesions. Neck was supple with no JVD. No cervical, supraclavicular or axillary lymphadenopathy palpable. Chest was symmetrical. Lungs with diminished breath sounds bilaterally without wheezes or rales. Cardiovascular exam was regular in rate and rhythm. No murmurs or gallops heard. Abdomen was soft with mild tenderness in the epigastric area without guarding or rebound. No hepatosplenomegaly palpable. Extremities showed no edema. Neurological examination showed no focal motor deficits. Laboratory Tests 07/04/17 05:25 MRI head done yesterday with contrast showed significant decrease in the size of the brainstem lesion. No surrounding edema and no new lesions noted. A/P: 1. Metastatic non-small cell lung cancer to brain stem, status post radiation therapy with significant benefit. No edema noted on the MRI. Would recommend weaning dexamethasone and discontinuing in the next few days. If she has evidence of the adrenal suppression, may consider replacement dose hydrocortisone. 2. Upper abdominal pain with possible pancreatitis, continue management as you are doing and advance diet as tolerated. Continue proton pump inhibitor and sucralfate because of the high dose steroid use to prevent gastritis or peptic ulcer disease. 3. Patient has not had any systemic therapy for metastatic non-small cell lung cancer yet. I would defer this discussion and decision to the patient and Dr. Trinidad. AKIKO ESPINAL Jul 04, 2017 10:08
[2017-07-04 12:00] VITALS: BP 168/64
[2017-07-04 16:00] VITALS: BP 160/78
[2017-07-04 19:59] VITALS: BP 160/90
[2017-07-05] VITALS (7 sets, daily range): BP systolic 145–168; BP diastolic 73–96
[2017-07-05] MEDS: ONDANSETRON 4 MG/2 ML (SDV) Z0FRAN IVP PRN ×2 (02:19→17:22)
[2017-07-05] MEDS: fentaNYL INJECTION 100 MCG/2 ML AMP IVP PRN ×6 (02:20→21:21)
[2017-07-05] MEDS: NS IV 1000 ML 1,000 ML IV SCH ×3 (03:53→14:15)
[2017-07-05] MEDS: DEXAMETHASONE 4 MG/ML SDV (DECADRON) IV SCH ×3 (05:03→21:22)
[2017-07-05] MEDS: SUCRALFATE 1 GM (CARAFATE) TAB PO SCH ×4 (05:03→21:21)
[2017-07-05] MEDS: PROMETHAZINE INJ 25 MG/ML (PHENERGAN) AMP IVP PRN ×4 (05:11→21:22)
[2017-07-05 06:12] LABS: BASOPHILS % (AUTO) 0 % (0-10); EOSINOPHILS % (AUTO) 0 % (0-10); LYMPHOCYTES # (AUTO) 0.6 X 10^3 (1.0-4.0); LYMPHOCYTES % (AUTO) 4 % (12-44); MEAN CORPUSCULAR HEMOGLOBIN 30 PG (25-34); MEAN CORPUSCULAR HGB CONC 34 G/DL (32-36); MEAN CORPUSCULAR VOLUME 89 FL (80-99); MEAN PLATELET VOLUME 9.7 FL (7.4-10.4); MONOCYTES % (AUTO) 6 % (0-12); NEUTROPHILS # (AUTO) 14.4 X 10^3 (1.8-7.8); NEUTROPHILS % (AUTO) 90 % (42-75); PLATELET COUNT 236 10^3/uL (130-400); RED BLOOD COUNT 4.05 10^6/uL (4.35-5.85); RED CELL DISTRIBUTION WIDTH 15.4 % (10.0-14.5)
[2017-07-05 06:37] LABS: ANION GAP 11 MMOL/L (5-14); BLOOD UREA NITROGEN 8 MG/DL (7-18); BUN/CREATININE RATIO 17; CALCIUM 8.8 MG/DL (8.5-10.1); CARBON DIOXIDE 26 MMOL/L (21-32); CHLORIDE 102 MMOL/L (98-107); CREATININE SERUM 0.48 MG/DL (0.60-1.30); GFR ESTIMATED > 60; GLUCOSE 92 MG/DL (70-105); POTASSIUM 2.9 MMOL/L (3.6-5.0); SODIUM 139 MMOL/L (135-145)
[2017-07-05 06:57] LABS: ANISOCYTOSIS SLIGHT; BAND NEUTROPHILS 2 %; LYMPHOCYTES % (MANUAL) 7 %; NEUTROPHILS % (MANUAL) 83 %; POLYCHROMASIA SLIGHT
[2017-07-05] MEDS: RT-ALBUTEROL/IPRATROPIUM 3 ML (DUONEB) VIAL INH SCH ×4 (07:24→18:19)
[2017-07-05] MEDS: POTASSIUM CL 10MEQ/50ML IVPB 50 ML IV SCH ×2 (07:58→09:02)
[2017-07-05] MEDS ORDERED: KCL 20 MEQ POWDER FOR ORAL SOLUTION PO NR (09:45)
--- NOTE | 2017-07-05 09:51 | Progress Note-Hospitalist ---
Subjective HPI/CC On Admission Date Seen by Provider: Jul 05, 2017 Time Seen by Provider: 09:40 Pt is a 62yoCF with a PMH of fibromyalgia and lung cancer with mets to the brain who presented to the ER with CC of abd pain. She is able to provide very little history. Her daughter is at bedside who provides most of the history. She states that her mom has baseline confusion due to her brain mets and recent radiation. Daughter reports her mom had been doing well until today when around 1030am she developed sudden onset abd pain. Pt point to the epigastric and periumbilical area when asked where the pain is. Otherwise she mostly moans. Daughter states she has not vomited or complained of nausea. She report pt has had no diarrhea or constipation and had been eating well. CT in abd showed peripancreatic fat stranding and lipase was elevated. She was admitted for management of pancreatitis. Subjective/Events-last exam Pt reports feeling better. Abd still in pain but improving. Would like to try starting a diet today. Objective Exam Vital Signs Vital Sign - Last 12Hours 07/02/17 07/02/17 07/02/17 12:29 15:48 16:30 Temp 98.9 Pulse 91 Resp 18 B/P (MAP) 103/71 Pulse Ox 97 O2 Delivery Room Air O2 Flow Rate 2.00 FiO2 21 Capillary Refill : Less Than 3 Seconds General Appearance: No Apparent Distress, WD/WN, Thin Respiratory: Lungs Clear, No Respiratory Distress Cardiovascular: Regular Rate, Rhythm, No Murmur Gastrointestinal: Normal Bowel Sounds, Non Tender, Soft, No Distended, No Guarding, Tenderness (upper abd) Extremity: Non Tender, No Calf Tenderness Neurologic/Psychiatric: Alert, Oriented x3 Results/Procedures Lab Laboratory Tests 07/05/17 05:55 Assessment/Plan Assessment and Plan Assess & Plan/Chief Complaint Pancreatitis Diagnosis/Problems Diagnosis/Problems (1) Acute pancreatitis Status: Acute Assessment & Plan: IVF ADAT- will start CLD today- ADAT Fentanyl for pain, well controlled Will start oral pain medicines as well Continue IV Protonix Continue Carafate Qualifiers: Qualified Codes: K85.90 - Acute pancreatitis without necrosis or infection, unspecified (2) Lung cancer metastatic to brain Status: Acute Assessment & Plan: Oncology consulted Decadron for brain mets Tapering dose per their recs MRI brain showed reduced size of tumor (3) Nausea Status: Acute Assessment & Plan: Continue decadron (tapering dose), zofran, scopolamine, and phenergan Has had previous admissions for intractable nausea/vomiting likely due to brainstem tumor (4) COPD (chronic obstructive pulmonary disease) Status: Chronic Assessment & Plan: 2lpm oxygen requirement at baseline MAT protocol Qualifiers: Qualified Codes: J44.9 - Chronic obstructive pulmonary disease, unspecified (5) Fibromyalgia Status: Chronic (6) Hypokalemia Assessment & Plan: Will replace- trial elixir today (7) Leukocytosis Status: Acute Assessment & Plan: likely due to steroids no other signs of infection (8) Prophylactic measure Assessment & Plan: CLD NS at 75ml/hr Lovenox TIMO LE MD Jul 05, 2017 9:51 am
[2017-07-05] MEDS: PANTOPRAZOLE 40 MG/10 ML (PROTONIX) VIAL IV SCH (09:52)
[2017-07-05] MEDS: ENOXAPARIN 40 MG/0.4 ML (LOVENOX) SYR SC SCH (10:15)
[2017-07-05] MEDS: SCOPOLAMINE 1.5 MG (TRANSDERM-SCOP) PATCH TOP SCH (15:50)
[2017-07-05] MEDS ORDERED: PATCH REMOVAL TP SCH (16:14)
[2017-07-06 04:00] VITALS: BP 179/92
[2017-07-06] MEDS: NS IV 1000 ML 1,000 ML IV SCH ×2 (04:20→19:08)
[2017-07-06] MEDS: fentaNYL INJECTION 100 MCG/2 ML AMP IVP PRN ×5 (04:20→17:06)
[2017-07-06] MEDS: ONDANSETRON 4 MG/2 ML (SDV) Z0FRAN IVP PRN ×2 (04:20→19:45)
[2017-07-06] MEDS: SUCRALFATE 1 GM (CARAFATE) TAB PO SCH ×4 (05:28→19:46)
[2017-07-06] MEDS: DEXAMETHASONE 4 MG/ML SDV (DECADRON) IV SCH ×3 (05:28→21:23)
[2017-07-06 06:11] LABS: BASOPHILS % (AUTO) 0 % (0-10); EOSINOPHILS % (AUTO) 0 % (0-10); LYMPHOCYTES # (AUTO) 0.6 X 10^3 (1.0-4.0); LYMPHOCYTES % (AUTO) 5 % (12-44); MEAN CORPUSCULAR HEMOGLOBIN 30 PG (25-34); MEAN CORPUSCULAR HGB CONC 33 G/DL (32-36); MEAN CORPUSCULAR VOLUME 89 FL (80-99); MEAN PLATELET VOLUME 9.9 FL (7.4-10.4); MONOCYTES # (AUTO) 0.6 X 10^3 (0.0-1.0); MONOCYTES % (AUTO) 6 % (0-12); NEUTROPHILS # (AUTO) 9.2 X 10^3 (1.8-7.8); NEUTROPHILS % (AUTO) 89 % (42-75); PLATELET COUNT 227 10^3/uL (130-400); RED BLOOD COUNT 3.96 10^6/uL (4.35-5.85); RED CELL DISTRIBUTION WIDTH 15.3 % (10.0-14.5); WHITE BLOOD COUNT 10.3 10^3/uL (4.3-11.0)
[2017-07-06 06:33] LABS: ANION GAP 10 MMOL/L (5-14); BLOOD UREA NITROGEN 8 MG/DL (7-18); BUN/CREATININE RATIO 17; CALCIUM 9.1 MG/DL (8.5-10.1); CARBON DIOXIDE 27 MMOL/L (21-32); CHLORIDE 102 MMOL/L (98-107); CREATININE SERUM 0.48 MG/DL (0.60-1.30); GFR ESTIMATED > 60; GLUCOSE 97 MG/DL (70-105); SODIUM 139 MMOL/L (135-145)
[2017-07-06] MEDS: RT-ALBUTEROL/IPRATROPIUM 3 ML (DUONEB) VIAL INH SCH ×4 (07:21→19:07)
[2017-07-06] MEDS: PANTOPRAZOLE 40 MG/10 ML (PROTONIX) VIAL IV SCH (07:49)
[2017-07-06] MEDS: PROMETHAZINE INJ 25 MG/ML (PHENERGAN) AMP IVP PRN (07:51)
[2017-07-06 08:00] VITALS: BP 167/86
[2017-07-06] MEDS ORDERED: KCL 20 MEQ POWDER FOR ORAL SOLUTION PO NR (08:00)
[2017-07-06] MEDS: HYDROcodone/APAP 5 MG/325 MG (LORTAB) TAB PO PRN ×4 (08:12→23:26)
[2017-07-06] MEDS: MAGNESIUM 1 GM/100 ML IVPB 100 ML IV SCH ×2 (08:14→09:18)
--- NOTE | 2017-07-06 08:20 | Progress Note-Hospitalist ---
Subjective HPI/CC On Admission Date Seen by Provider: Jul 06, 2017 Time Seen by Provider: 08:10 Pt is a 62yoCF with a PMH of fibromyalgia and lung cancer with mets to the brain who presented to the ER with CC of abd pain. She is able to provide very little history. Her daughter is at bedside who provides most of the history. She states that her mom has baseline confusion due to her brain mets and recent radiation. Daughter reports her mom had been doing well until today when around 1030am she developed sudden onset abd pain. Pt point to the epigastric and periumbilical area when asked where the pain is. Otherwise she mostly moans. Daughter states she has not vomited or complained of nausea. She report pt has had no diarrhea or constipation and had been eating well. CT in abd showed peripancreatic fat stranding and lipase was elevated. She was admitted for management of pancreatitis. Subjective/Events-last exam Reports feeling well and wants to advance diet. Still some abd pain but much improved. Objective Exam Vital Signs Vital Sign - Last 12Hours 07/02/17 07/02/17 07/02/17 12:29 15:48 16:30 Temp 98.9 Pulse 91 Resp 18 B/P (MAP) 103/71 Pulse Ox 97 O2 Delivery Room Air O2 Flow Rate 2.00 FiO2 21 Capillary Refill : Less Than 3 Seconds General Appearance: No Apparent Distress, Thin Respiratory: Lungs Clear, No Respiratory Distress Cardiovascular: Regular Rate, Rhythm, No Murmur Gastrointestinal: Normal Bowel Sounds, Soft, No Distended, No Guarding, No Rebound, Tenderness (very mild) Extremity: Non Tender, No Calf Tenderness Neurologic/Psychiatric: Alert, Oriented x3 Results/Procedures Lab Laboratory Tests 07/06/17 05:59 Assessment/Plan Assessment and Plan Assess & Plan/Chief Complaint Pancreatitis Diagnosis/Problems Diagnosis/Problems (1) Acute pancreatitis Status: Acute Assessment & Plan: IVF Advance to soft diet Fentanyl for pain, well controlled Hydrocodone for first line pain treatment Continue Protonix Continue Carafate Qualifiers: Qualified Codes: K85.90 - Acute pancreatitis without necrosis or infection, unspecified (2) Lung cancer metastatic to brain Status: Acute Assessment & Plan: Oncology consulted Decadron for brain mets Tapering dose per their recs MRI brain showed reduced size of tumor (3) Nausea Status: Acute Assessment & Plan: Continue decadron (tapering dose), zofran, scopolamine, and phenergan Has had previous admissions for intractable nausea/vomiting likely due to brainstem tumor (4) COPD (chronic obstructive pulmonary disease) Status: Chronic Assessment & Plan: 2lpm oxygen requirement at baseline MAT protocol Qualifiers: Qualified Codes: J44.9 - Chronic obstructive pulmonary disease, unspecified (5) Hypokalemia Assessment & Plan: Supplement Prefers Potassium Elixir (6) Fibromyalgia Status: Chronic (7) Leukocytosis Status: Resolved Assessment & Plan: likely due to steroids no other signs of infection (8) Prophylactic measure Assessment & Plan: Soft diet NS at 75ml/hr TIMO Lang MD Jul 06, 2017 8:20 am
[2017-07-06] MEDS: ENOXAPARIN 40 MG/0.4 ML (LOVENOX) SYR SC SCH (09:18)
[2017-07-06 12:00] VITALS: BP 132/65
[2017-07-06 16:36] VITALS: BP 139/72
[2017-07-06] MEDS ORDERED: ALPRAZolam 1 MG (XANAX) TAB PO PRN (17:00)
[2017-07-06] MEDS: ALPRAZolam 1 MG (XANAX) TAB PO PRN ×2 (17:06→23:26)
[2017-07-06 19:50] VITALS: BP 117/75
[2017-07-06 23:30] VITALS: BP 148/78
[2017-07-07] MEDS: HYDROcodone/APAP 5 MG/325 MG (LORTAB) TAB PO PRN ×4 (03:46→19:38)
[2017-07-07] MEDS: DEXAMETHASONE 4 MG/ML SDV (DECADRON) IV SCH (05:02)
[2017-07-07] MEDS: SUCRALFATE 1 GM (CARAFATE) TAB PO SCH ×4 (05:02→19:38)
[2017-07-07 05:59] LABS: BASOPHILS % (AUTO) 0 % (0-10); EOSINOPHILS % (AUTO) 0 % (0-10); LYMPHOCYTES # (AUTO) 0.5 X 10^3 (1.0-4.0); LYMPHOCYTES % (AUTO) 6 % (12-44); MEAN CORPUSCULAR HEMOGLOBIN 30 PG (25-34); MEAN CORPUSCULAR HGB CONC 33 G/DL (32-36); MEAN CORPUSCULAR VOLUME 90 FL (80-99); MEAN PLATELET VOLUME 10.3 FL (7.4-10.4); MONOCYTES # (AUTO) 0.4 X 10^3 (0.0-1.0); MONOCYTES % (AUTO) 5 % (0-12); NEUTROPHILS # (AUTO) 7.6 X 10^3 (1.8-7.8); NEUTROPHILS % (AUTO) 89 % (42-75); PLATELET COUNT 251 10^3/uL (130-400); RED BLOOD COUNT 3.73 10^6/uL (4.35-5.85); RED CELL DISTRIBUTION WIDTH 15.4 % (10.0-14.5); WHITE BLOOD COUNT 8.5 10^3/uL (4.3-11.0)
[2017-07-07 06:20] LABS: ANION GAP 9 MMOL/L (5-14); BLOOD UREA NITROGEN 12 MG/DL (7-18); BUN/CREATININE RATIO 24; CALCIUM 8.8 MG/DL (8.5-10.1); CARBON DIOXIDE 25 MMOL/L (21-32); CHLORIDE 106 MMOL/L (98-107); GFR ESTIMATED > 60; GLUCOSE 125 MG/DL (70-105); POTASSIUM 3.5 MMOL/L (3.6-5.0); SODIUM 140 MMOL/L (135-145)
[2017-07-07] MEDS: RT-ALBUTEROL/IPRATROPIUM 3 ML (DUONEB) VIAL INH SCH (07:31)
[2017-07-07 08:00] VITALS: BP 154/78
[2017-07-07] MEDS: NS IV 1000 ML 1,000 ML IV SCH (08:01)
[2017-07-07] MEDS: PANTOPRAZOLE 40 MG/10 ML (PROTONIX) VIAL IV SCH (08:04)
[2017-07-07] MEDS: ENOXAPARIN 40 MG/0.4 ML (LOVENOX) SYR SC SCH (08:05)
[2017-07-07] MEDS: ONDANSETRON 4 MG/2 ML (SDV) Z0FRAN IVP PRN (09:29)
[2017-07-07] MEDS: ALPRAZolam 1 MG (XANAX) TAB PO PRN ×3 (09:29→21:40)
[2017-07-07] MEDS: fentaNYL INJECTION 100 MCG/2 ML AMP IVP PRN ×2 (09:30→21:40)
--- NOTE | 2017-07-07 10:23 | Progress Note-Hospitalist ---
Subjective HPI/CC On Admission Date Seen by Provider: Jul 07, 2017 Time Seen by Provider: 10:00 Pt is a 62yoCF with a PMH of fibromyalgia and lung cancer with mets to the brain who presented to the ER with CC of abd pain. She is able to provide very little history. Her daughter is at bedside who provides most of the history. She states that her mom has baseline confusion due to her brain mets and recent radiation. Daughter reports her mom had been doing well until today when around 1030am she developed sudden onset abd pain. Pt point to the epigastric and periumbilical area when asked where the pain is. Otherwise she mostly moans. Daughter states she has not vomited or complained of nausea. She report pt has had no diarrhea or constipation and had been eating well. CT in abd showed peripancreatic fat stranding and lipase was elevated. She was admitted for management of pancreatitis. Subjective/Events-last exam Reports feeling better. Ready to advance diet further. Will attempt to transition off IV meds if able in preparation for discharge tomorrow. Objective Exam Vital Signs Vital Sign - Last 12Hours 07/02/17 07/02/17 07/02/17 12:29 15:48 16:30 Temp 98.9 Pulse 91 Resp 18 B/P (MAP) 103/71 Pulse Ox 97 O2 Delivery Room Air O2 Flow Rate 2.00 FiO2 21 Capillary Refill : Less Than 3 Seconds General Appearance: No Apparent Distress, WD/WN Respiratory: Lungs Clear, No Respiratory Distress Cardiovascular: Regular Rate, Rhythm, No Murmur Gastrointestinal: Normal Bowel Sounds, Non Tender, Soft Extremity: Non Tender, No Calf Tenderness Neurologic/Psychiatric: Alert, Oriented x3 Results/Procedures Lab Laboratory Tests 07/07/17 05:35 Assessment/Plan Assessment and Plan Assess & Plan/Chief Complaint Pancreatitis Diagnosis/Problems Diagnosis/Problems (1) Acute pancreatitis Status: Acute Assessment & Plan: Advance to reg diet Fentanyl for pain breakthrough Hydrocodone for first line pain treatment Continue Protonix Continue Carafate Qualifiers: Qualified Codes: K85.90 - Acute pancreatitis without necrosis or infection, unspecified (2) Lung cancer metastatic to brain Status: Acute Assessment & Plan: Oncology consulted Transition to oral steroids for taper MRI brain showed reduced size of tumor (3) Nausea Status: Acute Assessment & Plan: Continue decadron (tapering dose), zofran, scopolamine, and phenergan Has had previous admissions for intractable nausea/vomiting likely due to brainstem tumor (4) COPD (chronic obstructive pulmonary disease) Status: Chronic Assessment & Plan: 2lpm oxygen requirement at baseline MAT protocol Qualifiers: Qualified Codes: J44.9 - Chronic obstructive pulmonary disease, unspecified (5) Hypokalemia Assessment & Plan: Supplement Prefers Potassium Elixir (6) Fibromyalgia Status: Chronic (7) Leukocytosis Status: Resolved Assessment & Plan: likely due to steroids no other signs of infection (8) Prophylactic measure Assessment & Plan: Reg diet Saline lock TIMO Lang MD Jul 07, 2017 10:23
[2017-07-07 15:46] VITALS: BP 143/80
[2017-07-07] MEDS: DOCUSATE SODIUM 100 MG (COLACE) CAP PO SCH (19:38)
[2017-07-08 00:40] VITALS: BP 145/80
[2017-07-08] MEDS: HYDROcodone/APAP 5 MG/325 MG (LORTAB) TAB PO PRN ×3 (04:16→13:29)
[2017-07-08] MEDS: SUCRALFATE 1 GM (CARAFATE) TAB PO SCH ×2 (06:01→10:30)
[2017-07-08] MEDS ORDERED: PANTOPRAZOLE 40 MG (PROTONIX) TAB PO SCH (07:00)
[2017-07-08 08:00] VITALS: BP 137/82
[2017-07-08] MEDS: DOCUSATE SODIUM 100 MG (COLACE) CAP PO SCH (08:25)
[2017-07-08] MEDS: ALPRAZolam 1 MG (XANAX) TAB PO PRN (08:25)
[2017-07-08] MEDS ORDERED: predniSONE 10 MG TAB PO SCH (09:00)
[2017-07-08] MEDS: ENOXAPARIN 40 MG/0.4 ML (LOVENOX) SYR SC SCH (10:30)
--- NOTE | 2017-07-08 13:30 | Progress Note-Hospitalist ---
Standard Progress Note Progress Notes/Assess & Plan Date Seen 07/08/17 Time Seen by Provider: 13:25 Diagnosis Pancreatitis Assess & Plan/Chief Complaint The patient is a pleasant 62-year-old white female who was admitted 6 days ago after she presented to the emergency room with abdominal pain nausea and vomiting. At that time her lipase was 383 which is quite modestly elevated. Her CT scan suggested fat stranding in that area surrounding the pancreas. She has no particular risk factors for pancreatitis. She has a lung cancer which is metastatic to brain. She has been receiving treatment. Her oncologist is Dr. HYDE. She is now able to eat although not enthusiastically. The pain is largely gone. She wishes to be discharged point. Physical exam: She is alert and oriented. She exhibits alopecia consistent with her treatment program. Lungs show somewhat distant breath sounds but are clear. CV is regular. She is quite slender. Extremities show no pedal edema. Impression: Abdominal pain with evidence of mild pancreatitis etiology unclear. 2.carcinoma of the lung with multiple metastases to brain. Plan: Discharge to home. See discharge sequence for medications and routines. She is to keep appointment with Dr. Hyde for tomorrow at the cancer clinic Labs Laboratory Tests 07/07/17 05:35 NASIR SEVILLA MD Jul 08, 2017 13:30
--- NOTE | 2017-07-08 13:48 | D/C HH Face to Face Order ---
D/C Face to Face Orders Instructions for Patient Patient Instructions/FollowUp: Medications as detailed on the discharge sequence. If the hydrocodone which you have now does not provide sufficient pain relief, you should tell this to Dr. Garland tomorrow at your appointment. There are many possibilities for better pain control. Physician to follow Patient: BARRETT Discharge Diet for Home: Regular Diet Patient Problems: Metastatic carcinoma of the lung to brain Patient Data-Allergies,Ht & Wt Patient Allergies: Coded Allergies: Sulfa (Sulfonamide Antibiotics) (Verified Allergy, Unknown, HIVES, ) morphine (Unverified Adverse Reaction, Mild, NAUSEA, 06/28/17) Height (Feet): 5 Height (Inches): 4.00 Weight (Pounds): 111 Weight (Ounces): 0.0 Home Health Need/Face to Face Date of Face to Face: Jul 08, 2017 Clinical Findings: Generalized weakness and fatigue, Muscle weakness, Unsteady gait I have seen Pt [id number]: Yes Discharged To: Home Diagnosis/Conditions: Carcinoma of the lung metastatic to brain Problems/Diagnosis/Condition: Patient is Homebound due to: CognItive deficits, Muscle weakness, Shortness of breath/distress Homebound Status Due to the above stated illness, injury or surgical procedure (medical condition or diagnosis) and associated clinical findings, the patient is homebound because of his/her inability to leave home except with aid of a supportive device and/or person AND leaving the home requires a considerable and taxing effort or is medically contraindicated. Pt req the following assistanc: Aid of another person Home Health Nursing Orders Home Health Services Order: Nursing Services Home Health Infusion Therapy Line Start Date: Jul 03, 2017 Line Start Time: 1355 Line Type: Peripheral IV Site Location: Hand Certify Stmt I certify that this patient is under my care and that I, a nurse practitioner or a physician; a professional nursing assistant working with me, had a face to face encounter that - meets the physician face to face encounter requirements with this patient as dated. NASIR PEPPER MD Jul 08, 2017 13:48
[2017-07-08] MEDS ORDERED: PRD10T PO ×2 (13:55→14:04)
[2017-07-08 14:25] VITALS: BP 137/82
== END 2017-07-08 14:25 | disposition home health service (06) | DRG 439 ==
LOC: EDUNIT# 12:29 → ER 12:31 → EDBEDREQ 15:21 → 4TH 15:25
PROVIDERS: ADMIT Family Medicine; ATTEND Family Medicine
DX: K85.90 Acute pancreatitis without necrosis or infection, unspecified (principal); C34.11 Malignant neoplasm of upper lobe, right bronchus or lung; C79.31 Secondary malignant neoplasm of brain; J44.9 Chronic obstructive pulmonary disease, unspecified; I10 Essential (primary) hypertension; E78.00 Pure hypercholesterolemia, unspecified; I07.1 Rheumatic tricuspid insufficiency; K21.9 Gastro-esophageal reflux disease without esophagitis; M79.7 Fibromyalgia; F41.9 Anxiety disorder, unspecified; F32.9 Major depressive disorder, single episode, unspecified; D72.829 Elevated white blood cell count, unspecified; E87.6 Hypokalemia; Z92.3 Personal history of irradiation; Z87.891 Personal history of nicotine dependence
CPT/HCPCS: 36415; 70553; 74177; 76937; 80048; 80053; 81000; 83690; 83735; 85007; 85025; 85027; 87088; 94640; 94664; 94760; 96361; 96374; 96375; 96376

== ENCOUNTER 2017-07-17 09:40 | Day surgery (SDC) | payer MEDICARE ==
[~2017-07-17] VITALS: Ht 162.6 cm; Wt 50.3 kg
[~2017-07-17 09:40] MED LIST changes: +ALPR1TAB7 PO; +ONDA8TAB12 PO; +PRD10T PO; +RT-ALBUINH IH
[2017-07-17 09:45] VITALS: BP 153/79
[2017-07-17] MEDS ORDERED: LACTATED RINGERS 1,000 ML IV PRN ×2 (09:47→10:05)
[2017-07-17] MEDS ORDERED: LIDOCAINE/EPI 1%-1:200,000 (XYLOCAINE) 10 ML VIAL ONE (09:55)
[2017-07-17] MEDS ORDERED: HEParin (CENTRAL IV FLUSH) 500 UNIT/5 ML SYR ONE (09:55)
--- NOTE | 2017-07-17 09:59 | Progress Note-Pre Operative ---
Pre-Operative Progress Note H&P Reviewed The H&P was reviewed, patient examined and no changes noted. Time Seen by Provider: 09:55 Date H&P Reviewed: Jul 17, 2017 Time H&P Reviewed: 09:58 Pre-Operative Diagnosis: Lung CA, Venous Insufficiency LUCIANA WHIPPLE DO Jul 17, 2017 09:59
[2017-07-17] MEDS ORDERED: proPOfol 200 MG/20 ML (DIPRIVAN) VIAL IV ONE (10:00)
[2017-07-17] MEDS ORDERED: LIDOCAINE PF 2% 5 ML (XYLOCAINE) VIAL ONE (10:00)
[2017-07-17] MEDS ORDERED: fentaNYL INJECTION 100 MCG/2 ML AMP ONE (10:01)
[2017-07-17] MEDS ORDERED: CLINDAMYCIN 600 MG/4ML (CLEOCIN) VIAL ONE ×2 (10:01)
[2017-07-17] MEDS ORDERED: NS (IVPB) 50 ML ONE (10:02)
[2017-07-17] MEDS ORDERED: MIDAZOLAM 2 MG/2 ML (VERSED) VIAL ONE (10:02)
[2017-07-17] MEDS: 0.9% SODIUM CHLORIDE PF INJ 20 ML VIAL ONE ×2 (10:15→11:00)
[2017-07-17] MEDS ORDERED: CLINDAMYCIN 600 MG/NS 50 ML IVPB IV ONE ×2 (10:30)
--- NOTE | 2017-07-17 11:06 | Progress Note-Post Operative ---
Post-Operative Progess Note Surgeon (s)/Commercial Construction Project Manager (s) Surgeon LUCIANA WHIPPLE DO Commercial Construction Project Manager: none Pre-Operative Diagnosis Lung CA, Venous Insufficiency Post-Operative Diagnosis same Procedure & Operative Findings Date of Procedure 07/17/17 Procedure Performed/Findings Ethel-cath placement with US guidance Anesthesia Type MAC Estimated Blood Loss Estimated blood loss (mL): less than 5ml Specimens/Packing Specimens Removed none LUCIANA WHIPPLE DO Jul 17, 2017 11:06
--- NOTE | 2017-07-17 11:08 | Discharge Inst-Surgical ---
Discharge Inst-Surgical Depart Medication/Instructions New, Converted or Re-Newed RX: Other (No Rx needed) Patient Instructions Follow up Appt: Make appointment for 1 week. [phone] Instructions: No lifting greater than 10 pounds. No strenuous activity. May shower in 24 hours, no tub bath or soaking. Use incentive spirometer at home as directed. No Smoking Skin/Wound Care: May remove band-aids. You need to leave the Dermabond on over incision it will fall off on its own. Symptoms to Report: Appetite Changes, Extremity Discoloration, Numbness/Tingling, Swelling Increased , Bleeding Excessive, Eyesight Changes, Pain Increased, Urine Color Change, Constipation(Persistent), Fever over 101 degree F, Pain/Pressure in chest, Urinating Difficulty, Cough Up/Vomit Blood, Heart Beat Irreg/Pounding, Pain/ Pressure in jaw, Vaginal Bleeding Increase, Cramps in feet or legs, Lightheadedness, Pain/Pressure in shoulder, Diarrhea(Persistent), Memory Changes Suddenly, Questions/Concerns, Weight gain consecutive days, Dizziness/ Fainting, Nausea/Vomiting, Shortness of Breath, Weight gain over 2 pounds If questions or concerns contact your physician Or seek help at emergency department. Activity Driving Instructions: No Driving/Refer to Dr. Ortega Discharge Diet: No Restrictions Diet After 24 Hours: Clear Liquid if Nauseous Symptoms to Report to Physicia: Pain/Pressure in Shoulder, Shortness of Breath If Any Problems/Questions/Issu: Contact Your Physician, Go to Emergency Room Skin/Wound Care Infection Signs and Symptoms: Increased Redness, Foul Odor of Wound, Increased Drainage, Skin Itchy or Has a Rash, Increased Swelling, Temperature Above 101 F Stitches/Tessa/Dermabond Dis: LUCIANA Manning DO Jul 17, 2017 11:08
[2017-07-17 11:40] VITALS: BP 162/95
--- NOTE | 2017-07-17 11:52 | Diagnostic Imaging Report ---
INDICATION: Postop port. FINDINGS: The right subclavian catheter distal tip projects over the lower SVC. There is no pneumothorax. Right hilar fullness is redemonstrated. There has been improvement in the right mid to lower lung infiltrate and resolution of the focal irregular peripheral opacity in the right upper lung. There has been no adverse development. No pneumothorax. IMPRESSION: Improvement in the right chest parenchymal opacities postop. The central line is in good position with no pneumothorax. Dictated by: Dictated on workstation # [id number]
[2017-07-17 12:10] VITALS: BP 162/98
[2017-07-17] MEDS ORDERED: HYDROcodone/APAP 10 MG/325 MG (LORTAB) TAB PO ONE (12:15)
[2017-07-17 12:45] VITALS: BP 158/89
[2017-07-17 13:13] VITALS: BP 158/89
--- NOTE | 2017-07-17 19:05 | Diagnostic Imaging Report ---
INDICATION: Undergoing catheter placement. EXAMINATION: Fluoroscopy was utilized by Dr. Knutson for placement of a central line. FINDINGS: Intraprocedure images demonstrate placement of a right subclavian [id number] catheter to be present. Tip over the right paramediastinal region with the tip somewhat limited in visualization. FLUOROSCOPY TIME: 7 seconds. IMPRESSION: Fluoroscopy was utilized for placement of a right subclavian [id number]-[id number] catheter. If further assessment is desired, postprocedure chest radiograph would be recommended. Dictated by: Dictated on workstation # [id number]
--- NOTE | 2017-08-07 19:47 | OPERATIVE REPORT ---
DATE OF SERVICE: 07/17/2017 PREOPERATIVE DIAGNOSES: 1. Lung cancer. 2. Venous insufficiency. POSTOPERATIVE DIAGNOSES: 1. Lung cancer. 2. Venous insufficiency. PROCEDURE: Port-A-Cath placement with ultrasound guidance. SURGEON: Ashvin Knutson DO GEOGRAPHIC INFORMATION SYSTEMS MANAGER: None. ANESTHESIA: IV sedation by SEATING CAPTAIN with local MAC. BLOOD LOSS: Less than 5 mL. SPECIMENS: None. INDICATION FOR PROCEDURE: The patient is a 62-year-old female, who unfortunately has lung cancer, needed port placement for chemotherapy because she has venous insufficiency and we will need long-term access. FINDINGS: The patient had a port placed in the right subclavian with ultrasound guidance. PROCEDURE NOTE: After informed consent was obtained, the patient was brought to the operating room, placed on the table in supine position. She was sterilely prepped and draped in normal fashion. Local lidocaine was used to infiltrate the skin on the right anterior chest wall as well as towards the clavicle. I then inserted an 18-gauge fine needle with negative inspiration. I attempted to cannulate the vein, had a hard time, able to grab the ultrasound and then could visualize the vein and able to get into the vein, good flash of blood, removed the syringe and then placed a guidewire down the needle using the Seldinger technique, checked with fluoroscopy, was in good position, removed the needle and then carefully made a stab incision at the guidewire and I then made an incision in the right anterior chest wall to create a pocket for the port and then over the guidewire I placed a dilator using the Seldinger technique and then removed this and then tunneled the catheter and then placed the catheter down the dilator using the Seldinger technique, carefully removed the inner portion of the dilator and the guidewire at the same time. I placed the catheter without any difficulty and then checked with fluoroscopy, it was in good position, attached the catheter to the port and then aspirating the port and then easily flushed. Got a good flash of blood and flushed with saline. I then sutured this port in place with 3-0 Prolene suturing to the chest wall, placed in the pocket and then flushing with heparinized saline, closed the incision and closing the subcutaneous tissue with 3-0 Vicryl suture and I then closed the skin with 4-0 undyed Monocryl 3 interrupted subcuticular stitches. Area was cleaned and dried. Dermabond placed as well as a dressing and patient then transferred to recovery room in stable condition. Sponge, instrument and needle count correct at the end of the case. Job ID: [id number] DocumentID: [id number] Dictated Date: 08/07/2017 13:18:01 Technical Training Instructor Date: 08/07/2017 19:47:20 Dictated By: ASHVIN KNUTSON DO
== END 2017-07-17 13:13 | disposition home or self-care (01) ==
LOC: SDC 09:40
PROVIDERS: ATTEND Surgery
DX: C34.11 Malignant neoplasm of upper lobe, right bronchus or lung (principal); I87.2 Venous insufficiency (chronic) (peripheral); J44.9 Chronic obstructive pulmonary disease, unspecified; K21.9 Gastro-esophageal reflux disease without esophagitis; F41.9 Anxiety disorder, unspecified; Z92.3 Personal history of irradiation; Z87.891 Personal history of nicotine dependence
CPT/HCPCS: 71010; 87081

== ENCOUNTER 2017-07-26 16:33 | Observation (INO) | payer MEDICARE ==
[~2017-07-26] VITALS: Ht 166.4 cm; Wt 49.0 kg
--- NOTE | 2017-07-26 16:55 | ED General ---
General Chief Complaint: Altered Mental Status Stated Complaint: AMS Source of Information: Patient, EMS History of Present Illness Time Seen by Provider: 16:50 Initial Comments This 62-year-old white female presents with a history of having matting confused this afternoon precipitating her family is calling EMS for transport to the emergency department. The paramedics have not noted any profound confusion and the patient appears to be aware of person place and time. There was some concern from the family that the patient has been over utilizing her narcotic pain pills. Patient relates that she has cancer for which she is under the care of Dr. Garland. Brief review the patient's previous discharge summaries demonstrate metastatic lung disease to the brain. The patient's prognosis is guarded. The patient is having significant confusion felt to be secondary to the metastatic disease to the brain. Allergies and Home Medications Allergies Coded Allergies: Sulfa (Sulfonamide Antibiotics) (Verified Allergy, Unknown, HIVES, ) morphine (Unverified Adverse Reaction, Mild, NAUSEA, 06/28/17) Home Medications Albuterol Sulfate 1 Puff Puff, 2 PUFF IH Q6H PRN for SHORTNESS OF BREATH, ( Reported) Alprazolam 1 Mg Tablet, 1 MG PO TID PRN for ANXIETY, (Reported) Diazepam 10 Mg Tablet, 5 MG PO BID, (Reported) TAKES 1/2 OF A (10 MG) TABLET Esomeprazole Magnesium 20 Mg Capsule.dr, 20 MG PO DAILY, (Reported) LAST FILLED 05/20/17 #30 Famotidine 20 Mg Tablet, 20 MG PO BID PRN for HEARTBURN, (Reported) LAST FILLED 05/13/17 #60 Fluoxetine HCl 20 Mg Capsule, 20 MG PO BID, (Reported) LAST FILLED 05/20/17 #60 Hydrocodone/Acetaminophen 1 Each Tablet, 1 TAB PO EVERY 4 TO 6 HOURS, (Reported) Ondansetron HCl 8 Mg Tablet, 8 MG PO Q8H PRN for NAUSEA/VOMITING-1ST LINE, ( Reported) Prednisone 10 Mg Tab, 60 MG PO DAILY, #35 Take 6 tabs(60mg) ON 07/09/17, then decrease by 1 tab(10mg) every other day. Prescribed by: NASIR SEVILLA on 07/08/17 1404 Promethazine HCl 25 Mg Tablet, 25 MG PO QID PRN for NAUSEA/VOMITING-1ST LINE, ( Reported) Sucralfate 1 Gm Tablet, 1 GM PO ACHS PRN for STOMACH UPSET, (Reported) Tizanidine HCl 4 Mg Tablet, 4 MG PO BID, (Reported) Constitutional: No chills, No fever, weakness EENTM: No hearing loss, No vision loss Respiratory: see HPI, cough, short of breath Cardiovascular: No chest pain Gastrointestinal: No abdominal pain, No diarrhea, No vomiting Genitourinary: No dysuria, No frequency Musculoskeletal: No back pain, No joint swelling Skin: No change in color, No rash Psychiatric/Neurological: See HPI Hematologic/Lymphatic: No Symptoms Reported Immunological/Allergic: no symptoms reported Past Gjanyae-Bvhpwl-Wdqwoc Hx Patient Social History Type Used: Cigarettes Former Smoker, Quit: Apr 12, 2017 2nd Hand Smoke Exposure: Yes Recent Hopitalizations: No Immunizations Up To Date Tetanus Booster (TDap): Unknown PED Vaccines UTD: No Seasonal Allergies Seasonal Allergies: No Surgeries History of Surgeries: Yes (D&C X 2, hemorrhoidectomy) Surgeries: Section, Hysterectomy Respiratory History of Respiratory Disorde: Yes (LUNG CA W/METS, O2 2L) Respiratory Disorders: COPD Currently Using CPAP: No Currently Using BIPAP: No Cardiovascular History of Cardiac Disorders: Yes (TRICUSPID REGERG) Cardiac Disorders: High Cholesterol, Hypertension Neurological History of Neurological Disord: Yes (brain mets) Reproductive System Hx Reproductive Disorders: No Sexually Transmitted Disease: No HIV/AIDS: No Female Reproductive Disorders: 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 Genitourinary History of Genitourinary Disor: Yes (YEAST INFECTION WITH ABX) Gastrointestinal History of Gastrointestinal Di: Yes Gastrointestinal Disorders: Gastroesophageal Reflux, Hemorrhoids Musculoskeletal History of Musculoskeletal Dis: Yes Musculoskeletal Disorders: Fibromyalgia Endocrine History of Endocrine Disorders: No HEENT History of HEENT Disorders: No Loss of Vision: Bilateral Hearing Impairment: Denies Cancer History of Cancer: Yes (METASTATIC) Cancer: Lung Did You Recieve Any Treatments: No Type of Tx Receive: Radiation Psychosocial History of Psychiatric Problem: Yes Behavioral Health Disorders: Anxiety, Depression Integumentary History of Skin or Integumenta: No Blood Transfusions History of Blood Disorders: No Adverse Reaction to a Blood Tr: No (HAS HAD BLOOD WITH NO REACTION) Reviewed Nursing Assessment Reviewed/Agree w Nursing PMH: Yes Family Medical History Family Medial History: Patient reports no known family medical history. Physical Exam Vital Signs Vital Sign - Last 12Hours 07/26/17 16:33 Temp 98.3 Pulse 70 Resp 16 B/P (MAP) 130/88 (102) Pulse Ox 98 O2 Delivery Room Air Capillary Refill : General Appearance: No Apparent Distress, Cachetic, Other (confused) Eyes: Bilateral Eye Normal Inspection HEENT: Normal ENT Inspection Neck: Normal Inspection Respiratory: Decreased Breath Sounds Cardiovascular: Regular Rate, Rhythm Gastrointestinal: Normal Bowel Sounds, No Pulsatile Mass, Non Tender Back: Normal Inspection, No CVA Tenderness Extremity: Normal Inspection, Normal Range of Motion, Non Tender Neurologic/Psychiatric: No Motor/Sensory Deficits, Other (patient is confused as to time. She has a poor historian and is unable to offer a complete and comprehensive history.) Skin: Normal Color, Warm/Dry Progress/Results/Core Measures Suspected Sepsis SIRS Temperature: Pulse: Respiratory Rate: Laboratory Tests 07/26/17 17:35: White Blood Count 8.5 Blood Pressure / Mean: Laboratory Tests 07/26/17 17:35: Creatinine 0.60, Platelet Count 206, Total Bilirubin 1.0 Results/Orders Lab Results Laboratory Tests Test 07/26/17 17:20 07/26/17 17:35 Range/Units Urine Color YELLOW Urine Clarity CLEAR Urine pH 8 5-9 Urine Specific Nicholson 1.015 L 1.016-1.022 Urine Protein NEGATIVE NEGATIVE Urine Glucose (UA) NEGATIVE NEGATIVE Urine Ketones NEGATIVE NEGATIVE Urine Nitrite NEGATIVE NEGATIVE Urine Bilirubin NEGATIVE NEGATIVE Urine Urobilinogen NORMAL NORMAL MG/DL Urine Leukocyte Esterase NEGATIVE NEGATIVE Urine RBC (Auto) NEGATIVE NEGATIVE Urine RBC NONE /HPF Urine WBC 0-2 /HPF Urine Squamous Epithelial Cells 0-2 /HPF Urine Crystals NONE /LPF Urine Bacteria TRACE /HPF Urine Casts NONE /LPF Urine Mucus NEGATIVE /LPF Urine Culture Indicated NO Urine Opiates Screen POSITIVE H NEGATIVE Urine Oxycodone Screen NEGATIVE NEGATIVE Urine Methadone Screen NEGATIVE NEGATIVE Urine Propoxyphene Screen NEGATIVE NEGATIVE Urine Barbiturates Screen NEGATIVE NEGATIVE Ur Tricyclic Antidepressants Screen NEGATIVE NEGATIVE Urine Phencyclidine Screen NEGATIVE NEGATIVE Urine Amphetamines Screen NEGATIVE NEGATIVE Urine Methamphetamines Screen NEGATIVE NEGATIVE Urine Benzodiazepines Screen POSITIVE H NEGATIVE Urine Cocaine Screen NEGATIVE NEGATIVE Urine Cannabinoids Screen NEGATIVE NEGATIVE White Blood Count 8.5 4.3-11.0 10^3/uL Red Blood Count 3.68 L 4.35-5.85 10^6/uL Hemoglobin 10.7 L 11.5-16.0 G/DL Hematocrit 33 L 35-52 % Mean Corpuscular Volume 90 80-99 FL Mean Corpuscular Hemoglobin 29 25-34 PG Mean Corpuscular Hemoglobin Concent 32 32-36 G/DL Red Cell Distribution Width 14.0 10.0-14.5 % Platelet Count 206 130-400 10^3/uL Mean Platelet Volume 10.0 7.4-10.4 FL Neutrophils (%) (Auto) 90 H 42-75 % Lymphocytes (%) (Auto) 6 L 12-44 % Monocytes (%) (Auto) 3 0-12 % Eosinophils (%) (Auto) 2 0-10 % Basophils (%) (Auto) 0 0-10 % Neutrophils # (Auto) 7.6 1.8-7.8 X 10^3 Lymphocytes # (Auto) 0.5 L 1.0-4.0 X 10^3 Monocytes # (Auto) 0.2 0.0-1.0 X 10^3 Eosinophils # (Auto) 0.1 0.0-0.3 10^3/uL Basophils # (Auto) 0.0 0.0-0.1 10^3/uL Sodium Level 135 135-145 MMOL/L Potassium Level 3.5 L 3.6-5.0 MMOL/L Chloride Level 100 98-107 MMOL/L Carbon Dioxide Level 26 21-32 MMOL/L Anion Gap 9 5-14 MMOL/L Blood Urea Nitrogen 12 7-18 MG/DL Creatinine 0.60 0.60-1.30 MG/DL Estimat Glomerular Filtration Rate > 60 BUN/Creatinine Ratio 20 Glucose Level 95 70-105 MG/DL Calcium Level 8.9 8.5-10.1 MG/DL Total Bilirubin 1.0 0.1-1.0 MG/DL Aspartate Amino Transf (AST/SGOT) 9 5-34 U/L Alanine Aminotransferase (ALT/SGPT) 10 0-55 U/L Alkaline Phosphatase 107 40-136 U/L Total Protein 5.3 L 6.4-8.2 GM/DL Albumin 3.2 3.2-4.5 GM/DL My Orders Orders - GEOFFREY GUIDRY MD Cbc With Automated Diff (07/26/17 16:46) Comprehensive Metabolic Panel (07/26/17 16:46) Ua Culture If Indicated (07/26/17 16:46) Drug Screen Stat (Urine) (07/26/17 16:46) Chest 1 View, Ap/Pa Only (07/26/17 16:46) Ct Head Wo (07/26/17 16:46) Vital Signs/I&O Vital Sign - Last 12Hours 07/26/17 16:33 Temp 98.3 Pulse 70 Resp 16 B/P (MAP) 130/88 (102) Pulse Ox 98 O2 Delivery Room Air Capillary Refill : Progress Note : Time: 18:24 Progress Note Patient's laboratory evaluation demonstrated no evidence of a urinary tract infection electrolyte abnormality significant anemia or infection. CT of the patient's head is pending. Dr. Scott was kind enough to admit the patient to an observation bed. Departure Communication (Admissions) Time/Spoke to Admitting Phy: 18:[address] Scott. Impression Impression: Primary Impression: Acute confusion Disposition: ADMITTED INPATIENT Condition: Unchanged Admissions Decision to Admit Reason: Admit from ER (General) Decision to Admit/Date: Jul 26, 2017 Time/Decision to Admit Time: 18:30 Departure-Patient Inst. Referrals: ERICKA BOSWELL MD (PCP/Family) Primary Care Physician GEOFFREY GUIDRY MD Jul 26, 2017 16:55
[2017-07-26 17:22] LABS: BILIRUBIN,URINE NEGATIVE (NEGATIVE); KETONES,URINE NEGATIVE (NEGATIVE); LEUKOCYTE ESTERASE ,URINE NEGATIVE (NEGATIVE); NITRITE,URINE NEGATIVE (NEGATIVE); PH,URINE 8 (5-9); PROTEIN,URINE NEGATIVE (NEGATIVE); UROBILINOGEN,URINE NORMAL (NORMAL)
[2017-07-26 17:34] LABS: SQUAMOUS EPITHELIAL CELL,UR 0-2 /HPF; WBC,URINE 0-2 /HPF
[2017-07-26 17:44] LABS: BASOPHILS % (AUTO) 0 % (0-10); EOSINOPHILS # (AUTO) 0.1 10^3/uL (0.0-0.3); EOSINOPHILS % (AUTO) 2 % (0-10); LYMPHOCYTES # (AUTO) 0.5 X 10^3 (1.0-4.0); LYMPHOCYTES % (AUTO) 6 % (12-44); MEAN CORPUSCULAR HEMOGLOBIN 29 PG (25-34); MEAN CORPUSCULAR HGB CONC 32 G/DL (32-36); MEAN CORPUSCULAR VOLUME 90 FL (80-99); MONOCYTES # (AUTO) 0.2 X 10^3 (0.0-1.0); MONOCYTES % (AUTO) 3 % (0-12); NEUTROPHILS # (AUTO) 7.6 X 10^3 (1.8-7.8); NEUTROPHILS % (AUTO) 90 % (42-75); PLATELET COUNT 206 10^3/uL (130-400); RED BLOOD COUNT 3.68 10^6/uL (4.35-5.85); WHITE BLOOD COUNT 8.5 10^3/uL (4.3-11.0)
[2017-07-26 18:07] LABS: ALANINE AMINOTRANSFERASE 10 U/L (0-55); ALBUMIN 3.2 GM/DL (3.2-4.5); ANION GAP 9 MMOL/L (5-14); ASPARTATE AMINO TRANSFERASE 9 U/L (5-34); BLOOD UREA NITROGEN 12 MG/DL (7-18); BUN/CREATININE RATIO 20; CALCIUM 8.9 MG/DL (8.5-10.1); CARBON DIOXIDE 26 MMOL/L (21-32); CHLORIDE 100 MMOL/L (98-107); GFR ESTIMATED > 60; GLUCOSE 95 MG/DL (70-105); POTASSIUM 3.5 MMOL/L (3.6-5.0); SODIUM 135 MMOL/L (135-145); TOTAL PROTEIN 5.3 GM/DL (6.4-8.2)
--- NOTE | 2017-07-26 18:29 | Diagnostic Imaging Report ---
PROCEDURE: CT head without contrast. TECHNIQUE: Multiple contiguous axial images were obtained through the brain without the use of intravenous contrast. INDICATION: Altered mental status. COMPARISON: Exam interpreted in correlation with brain MRI performed 07/03/2017. A small enhancing nodule associated with the right paramedian medulla, posteriorly, well seen on earlier MRI, is imperceptible at this exam. CT sensitivity for brainstem and posterior fossa lesions is inherently limited. There is no appreciable mass effect upon the fourth ventricle and the basilar cisterns showed no distortion and are patent. There is no hydrocephalus. There is no intracerebral hemorrhage and no findings of focal or generalized edema. No sulcal effacement or evidence for elevated intracranial pressures. The calvarium appears unremarkable, The orbits and paranasal sinuses are unremarkable, where visualized. IMPRESSION: Unremarkable head CT appears small subcentimeter enhancing nodule in the mid to low seen only at MRI is imperceptible at this exam and showed no evidence for mass effect. There is no hydrocephalus. There is no effacement of the basilar cisterns. The head CT is normal in this patient. Dictated by: Dictated on workstation # [id number]
--- NOTE | 2017-07-26 18:34 | Diagnostic Imaging Report ---
INDICATION: Altered mental status. COMPARISON: Study compared to 07/17/2017. FINDINGS: Irregular right perihilar density and right lung volume loss are unchanged. Right subclavian line at the SVC is stable. Elevated right diaphragm and basilar pleural fluid or thickening are unchanged. Air trapping and COPD are chronic. The left lung is compensatorily hyperexpanded. No pneumothorax. IMPRESSION: Unchanged right lung volume loss, elevated diaphragm, and irregular right perihilar density with stable positioning of a central line. Small right pleural effusion is also unchanged. No new abnormality. Dictated by: Dictated on workstation # [id number]
[2017-07-26] MEDS ORDERED: RT-ALBUTEROL/IPRATROPIUM 3 ML (DUONEB) VIAL ONE (19:12)
[2017-07-26 19:29] VITALS: BP 135/66
[2017-07-26] MEDS ORDERED: ONDANSETRON 4 MG/2 ML (SDV) Z0FRAN IV PRN (20:00)
[2017-07-26] MEDS ORDERED: CATHETER FLUSH 10 ML SYR IV PRN (20:00)
[2017-07-26] MEDS: HYDROcodone/APAP 5 MG/325 MG (LORTAB) TAB PO PRN (20:30)
[2017-07-26] MEDS: CATHETER FLUSH 10 ML SYR IV SCH (22:00)
[2017-07-27] VITALS: BP 161/78
[2017-07-27 04:00] VITALS: BP 167/81
[2017-07-27] MEDS: HYDROcodone/APAP 5 MG/325 MG (LORTAB) TAB PO PRN ×3 (05:55→17:45)
[2017-07-27 06:08] LABS: BASOPHILS % (AUTO) 0 % (0-10); EOSINOPHILS # (AUTO) 0.1 10^3/uL (0.0-0.3); EOSINOPHILS % (AUTO) 1 % (0-10); LYMPHOCYTES # (AUTO) 0.6 X 10^3 (1.0-4.0); LYMPHOCYTES % (AUTO) 6 % (12-44); MEAN CORPUSCULAR HEMOGLOBIN 30 PG (25-34); MEAN CORPUSCULAR HGB CONC 33 G/DL (32-36); MEAN CORPUSCULAR VOLUME 90 FL (80-99); MEAN PLATELET VOLUME 9.8 FL (7.4-10.4); MONOCYTES # (AUTO) 0.3 X 10^3 (0.0-1.0); MONOCYTES % (AUTO) 3 % (0-12); NEUTROPHILS % (AUTO) 90 % (42-75); PLATELET COUNT 243 10^3/uL (130-400); RED BLOOD COUNT 3.73 10^6/uL (4.35-5.85); RED CELL DISTRIBUTION WIDTH 14.2 % (10.0-14.5)
[2017-07-27 06:27] LABS: ANION GAP 10 MMOL/L (5-14); BLOOD UREA NITROGEN 10 MG/DL (7-18); BUN/CREATININE RATIO 17; CARBON DIOXIDE 27 MMOL/L (21-32); CHLORIDE 102 MMOL/L (98-107); POTASSIUM 3.3 MMOL/L (3.6-5.0); SODIUM 139 MMOL/L (135-145)
[2017-07-27 06:28] LABS: ALANINE AMINOTRANSFERASE 8 U/L (0-55); ALBUMIN 3.2 GM/DL (3.2-4.5); ASPARTATE AMINO TRANSFERASE 6 U/L (5-34); BILIRUBIN,TOTAL 0.9 MG/DL (0.1-1.0); CALCIUM 8.7 MG/DL (8.5-10.1); GFR ESTIMATED > 60; GLUCOSE 127 MG/DL (70-105); TOTAL PROTEIN 5.5 GM/DL (6.4-8.2)
[2017-07-27] MEDS: CATHETER FLUSH 10 ML SYR IV SCH ×3 (06:31→20:16)
[2017-07-27] MEDS: INFLUENZA TRIvalent 2017-2018 0.5 ML/45 MCG SYR IM ONE ×2 (07:54→07:56)
[2017-07-27] MEDS ORDERED: FLUT1AER (09:40)
[2017-07-27] MEDS ORDERED: PROC10TA PO (09:40)
[2017-07-27] MEDS ORDERED: HYDROcodone/APAP 10 MG/325 MG (LORTAB) TAB PO PRN (10:30)
[2017-07-27] MEDS ORDERED: ONDANSETRON 4 MG (ZOFRAN) ORAL DISSOLVE TAB PO PRN (10:30)
[2017-07-27] MEDS ORDERED: RT-ALBUTEROL HFA (VENTOLIN) PER PUFF IH PRN (10:30)
--- NOTE | 2017-07-27 11:52 | HISTORY AND PHYSICAL ---
DATE OF SERVICE: 07/26/2017 The patient is admitted to room 419. PRESENTING COMPLAINT: Worsening confusion. 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 She completed whole brain radiation therapy on 05/29/2017 and was started on palliative chemotherapy with weekly carboplatin and paclitaxel regimen on 07/23/2017. She was brought to the emergency room by her family with increased somnolence and confusion. She was admitted to observation status last night from the emergency room. Today upon evaluation, she still continues to be confused and cannot give a clear history. Per nursing staff, her daughter who was living with the patient and was a primary caregiver is admitted to the hospital following her surgery and is recovering. The patient has been staying home with two grandchildren aged 15 and 17 years with other relatives checking in on her. It is unclear if she was taking her medications correctly and if she was eating and drinking on time. Either way, she was somnolent and still confused. I will change the observation status to inpatient admission and adjust her medications. I will also get a social media senior associate consult to discuss about discharge options with the patient and her family. In the interim, I will obtain a physical therapy consultation for strengthening and ambulation as she is extremely weak. PAST MEDICAL HISTORY: Significant for non-small cell lung cancer metastatic to the brain as mentioned above. She completed whole brain radiation therapy on 05/29/2017 and was weaned off steroids following this. She was admitted to the hospital approximately a month ago with abdominal pain and was diagnosed with a probable pancreatitis. She has had some dementia even before the diagnosis of lung cancer or brain metastasis. Other medical problems include hypertension, hypercholesterolemia, GERD and depression. PAST SURGICAL HISTORY: Include a D and C x2, hemorrhoidectomy, , hysterectomy. SOCIAL HISTORY: The patient is and lives in [place], [place] with her daughter and her children. She has significant history of tobacco use, but quit in 04/2017 at the time of diagnosis of lung cancer. No history of alcohol or other recreational drug use. 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 FAMILY HISTORY: The patient is unable to provide any significant family history. PHYSICAL EXAMINATION: GENERAL: Today showed an elderly female, thin appearing, awake and answering simple questions appropriately, although unable to remember any details. She is somewhat confused as to time. VITAL SIGNS: Temperature was 97.5, pulse rate 106, respirations 20, blood pressure 167/81 with an oxygen saturation of 91% on 0.5 liters of oxygen by nasal cannula. HEENT: Normocephalic with alopecia, extraocular muscles intact, conjunctivae pink, oral mucosa moist without lesions. NECK: Supple with no JVD. No cervical, supraclavicular or axillary lymphadenopathy palpable. CHEST: Symmetrical. LUNGS: With diminished breath sounds bilaterally without wheezes or rales. HEART: Regular in rate and rhythm, borderline tachycardic, grade 2 early systolic murmur was heard. ABDOMEN: Soft, nontender with no hepatosplenomegaly or other masses palpable. EXTREMITIES: Showed no edema. NEUROLOGIC: Showed no focal motor deficits. LABORATORY DATA: CBC done yesterday at the emergency room showed WBC 8.5, hemoglobin 10.7 and platelet count of 206,000 with a neutrophil count of 7.6. Today morning CBC showed WBC 10.0 with hemoglobin 11.1 and platelet count of 243,000 with neutrophil count of 9.0. Chemistry panel done yesterday showed normal electrolytes except potassium level of 3.5. BUN was 12 and creatinine 0.6 with GFR more than 60 mL per minute. Liver function studies were within normal limits. Today morning, the chemistry panel showed potassium level of 3.3 and a magnesium level of 1.7. Renal function and liver function has been stable and normal. Urine toxicology screen was positive for opiates and benzodiazepines. Urinalysis showed no features of urinary tract infection. CT scan of the head done at the emergency room was unremarkable. A small subcentimeter enhancing nodule seen in the MRI previously is imperceptible at the exam with no evidence for mass effect. No hydrocephalus and no effacement of the basilar cisterns. It was otherwise normal. Chest x-ray done at the emergency room was unremarkable except for the right lung volume loss, elevated diaphragm, irregular right perihilar density and small right pleural effusion, all of which is unchanged when compared to previous study from 07/17/2017. IMPERSSION: 1. Increased confusion with somnolence of undetermined etiology. 2. Metastatic non-small cell lung cancer to the brain status post whole brain radiation therapy completed 05/29/2017. 3. Started on palliative chemotherapy with weekly carboplatin and paclitaxel regimen on 07/23/2017. 4. Her daughter who is her primary caregiver has been hospitalized over the last week with her own medical problems and surgery. This raises questions about medication compliance. PLAN: 1. I will admit the patient to the hospital and readjust her medications. 2. Obtain consultation with physical therapy for range of movement and strengthening exercises. 3. Obtain social media senior associate consult about discharge planning and to discuss the options with her family. 4. We will hold further chemotherapy until she is back to baseline. 5. Her overall prognosis is poor. We will continue to maintain her as a DNR as per the patient's and family's previously expressed wishes. Job ID: [id number] DocumentID: [id number] Dictated Date: 07/27/2017 11:09:42 Stemmer Machine Date: 07/27/2017 11:50:58 Dictated By: AKIKO ESPINAL MD
[2017-07-27] MEDS: SUCRALFATE 1 GM (CARAFATE) TAB PO SCH ×3 (12:37→20:16)
[2017-07-27 12:45] VITALS: BP 163/78
[2017-07-27] MEDS: RT-ALBUTEROL SULF 2.5 MG/3 ML PRE-MIX VIAL INH PRN ×2 (12:54→21:19)
[2017-07-27 15:55] VITALS: BP 161/83
[2017-07-27 19:40] VITALS: BP 140/76
[2017-07-27] MEDS: FLUoxetine HCL 20 MG (PROzac) CAP PO SCH (20:16)
[2017-07-27 23:35] VITALS: BP 142/73
[2017-07-28] MEDS: HYDROcodone/APAP 5 MG/325 MG (LORTAB) TAB PO PRN ×5 (00:58→23:09)
[2017-07-28 04:26] VITALS: BP 145/75
[2017-07-28] MEDS: CATHETER FLUSH 10 ML SYR IV SCH ×3 (06:23→22:04)
[2017-07-28] MEDS: PANTOPRAZOLE 40 MG (PROTONIX) TAB PO SCH (06:23)
[2017-07-28] MEDS: SUCRALFATE 1 GM (CARAFATE) TAB PO SCH ×4 (06:24→20:42)
[2017-07-28 07:55] VITALS: BP 139/78
[2017-07-28] MEDS: FLUoxetine HCL 20 MG (PROzac) CAP PO SCH ×2 (08:36→20:42)
[2017-07-28 11:46] VITALS: BP 156/72
--- NOTE | 2017-07-28 11:59 | Progress Note-Standard ---
Standard Progress Note Progress Notes/Assess & Plan Date Seen by Provider: Jul 28, 2017 Time Seen by Provider: 11:50 Progress/Assessment & Plan 62 year old female patient of Dr. Trinidad with history of metastatic non-small cell lung cancer to brain who completed whole brain radiation therapy in mid May 2017 and was started on palliative chemotherapy with weekly carboplatinum and paclitaxel regimen on 07/23/2017, was admitted to the hospital with the increasing confusion and fatigue. No evidence of infections. Medications adjusted and Valium as well as Xanax has been discontinued. Patient complained of intermittent back pain which is controlled with one hydrocodone tablet every 6 hours as needed. She is more alert today and is answering questions appropriately. She is eating better and denied any diarrhea or urinary symptoms. No chest pain, palpitations, orthopnea or PND. Her daughter who is also the patient on the medical surgical floor was present in the room during the interview and evaluation. Vital Sign - Last 12Hours Date Time Temp Pulse Resp B/P (MAP) Pulse Ox O2 Delivery O2 Flow Rate FiO2 07/28/17 11:46 97.7 96 20 156/72 (100) 97 Nasal Cannula 1.50 Physical examination today showed an elderly female, weak-appearing and answering questions appropriately. HEENT normocephalic with alopecia, extraocular muscles intact, conjunctivae pink , oral mucosa moist without lesions. Neck was supple with no JVD. No cervical, supraclavicular or axillary lymphadenopathy palpable. Chest was symmetrical. Lungs with slightly diminished breath sounds bilaterally without wheezes or rales. Cardiovascular exam was regular in rate and rhythm. Grade 2 systolic murmur was heard. Abdomen was soft, nontender with no hepatosplenomegaly or other masses palpable. Extremities showed no edema. Neurological exam showed no focal motor deficits. Overall motor strength 4 over 5 bilaterally. A/P: 1. Increased confusion and lethargy of undetermined etiology, rule out medications versus chemotherapy versus other. She seems to be doing better on the current medication regimen and I will discontinue the benzodiazepines. 2. Generalized fatigue with poor performance status, I will obtain a physical therapy consultation for strengthening and ambulation. 3. shipping services sales representative consult tomorrow morning regarding discharge planning. Patient's primary caregiver who is her daughter is currently in the hospital. 4. Non-small cell lung cancer with metastasis to the brain, status post whole brain radiation therapy. 5. Started on palliative chemotherapy with weekly carboplatinum and paclitaxel regimen on 07/23/2017. We'll hold further chemotherapy until her performance status improves. AKIKO ESPINAL Jul 28, 2017 11:59
[2017-07-28 16:00] VITALS: BP 151/74
[2017-07-28 20:00] VITALS: BP 138/77
[2017-07-28] MEDS: RT-ALBUTEROL SULF 2.5 MG/3 ML PRE-MIX VIAL INH PRN (21:15)
[2017-07-29] VITALS: BP 146/76
[2017-07-29] MEDS: RT-ALBUTEROL SULF 2.5 MG/3 ML PRE-MIX VIAL INH PRN ×2 (03:51→21:57)
[2017-07-29 04:00] VITALS: BP 146/80
[2017-07-29 05:44] LABS: BASOPHILS % (AUTO) 0 % (0-10); EOSINOPHILS # (AUTO) 0.2 10^3/uL (0.0-0.3); EOSINOPHILS % (AUTO) 3 % (0-10); LYMPHOCYTES # (AUTO) 0.5 X 10^3 (1.0-4.0); LYMPHOCYTES % (AUTO) 9 % (12-44); MEAN CORPUSCULAR HEMOGLOBIN 29 PG (25-34); MEAN CORPUSCULAR HGB CONC 32 G/DL (32-36); MEAN CORPUSCULAR VOLUME 91 FL (80-99); MEAN PLATELET VOLUME 9.7 FL (7.4-10.4); MONOCYTES # (AUTO) 0.3 X 10^3 (0.0-1.0); MONOCYTES % (AUTO) 6 % (0-12); NEUTROPHILS # (AUTO) 4.2 X 10^3 (1.8-7.8); NEUTROPHILS % (AUTO) 82 % (42-75); PLATELET COUNT 225 10^3/uL (130-400); RED BLOOD COUNT 3.43 10^6/uL (4.35-5.85); RED CELL DISTRIBUTION WIDTH 13.9 % (10.0-14.5); WHITE BLOOD COUNT 5.1 10^3/uL (4.3-11.0)
[2017-07-29 06:09] LABS: ALANINE AMINOTRANSFERASE 8 U/L (0-55); ALBUMIN 2.9 GM/DL (3.2-4.5); ANION GAP 7 MMOL/L (5-14); ASPARTATE AMINO TRANSFERASE 6 U/L (5-34); BILIRUBIN,TOTAL 0.3 MG/DL (0.1-1.0); BLOOD UREA NITROGEN 11 MG/DL (7-18); BUN/CREATININE RATIO 19; CALCIUM 8.5 MG/DL (8.5-10.1); CARBON DIOXIDE 29 MMOL/L (21-32); CHLORIDE 102 MMOL/L (98-107); CREATININE SERUM 0.57 MG/DL (0.60-1.30); GFR ESTIMATED > 60; GLUCOSE 179 MG/DL (70-105); MAGNESIUM 1.7 MG/DL (1.8-2.4); POTASSIUM 3.1 MMOL/L (3.6-5.0); SODIUM 138 MMOL/L (135-145)
[2017-07-29] MEDS ORDERED: SUCRALFATE 1 GM (CARAFATE) TAB ONE (06:30)
[2017-07-29] MEDS ORDERED: PANTOPRAZOLE 40 MG (PROTONIX) TAB PO ONE (06:30)
[2017-07-29] MEDS ORDERED: HYDROcodone/APAP 5 MG/325 MG (LORTAB) TAB ONE (06:34)
[2017-07-29] MEDS: SUCRALFATE 1 GM (CARAFATE) TAB PO SCH ×4 (06:37→19:59)
[2017-07-29] MEDS: PANTOPRAZOLE 40 MG (PROTONIX) TAB PO SCH (06:37)
[2017-07-29] MEDS: CATHETER FLUSH 10 ML SYR IV SCH ×3 (06:37→22:03)
[2017-07-29] MEDS: HYDROcodone/APAP 5 MG/325 MG (LORTAB) TAB PO PRN ×4 (06:37→21:05)
[2017-07-29 07:59] VITALS: BP 124/59
[2017-07-29] MEDS: FLUoxetine HCL 20 MG (PROzac) CAP PO SCH ×2 (08:40→19:59)
--- NOTE | 2017-07-29 10:46 | Physical Therapy Evaluation ---
PT Evaluation-General Medical Diagnosis Admission Date Jul 26, 2017 at 18:10 Medical Diagnosis: acute confusion Onset Date: Jul 26, 2017 Therapy Diagnosis Therapy Diagnosis: debility Height/Weight Height (Feet): 5 Height (Inches): 5.50 Weight (Pounds): 108 Weight (Ounces): 1.0 Precautions Precautions/Isolations: Chemo Precautions, Fall Prevention Weight Bear Status Right Lower Extremity: Right Full Weight Bearing Left Lower Extremity: Left Full Weight Bearing Referral Physician: Tyler Reason for Referral: Evaluation/Treatment Medical History Pertinent Medical History: COPD, GERD, HTN, OA, Smoking Additional Medical History metastatic lung cancer to brain Current History EMS due to confusion per family report Reviewed History: Yes Social History Home: Single Level Current Living Status: Children Entry Into Home: Stairs With Railing PT Steps Into Home: 2 Prior/Core FIM Prior Level of Function Functional [place] Measure 0=Not Assessed/NA 4=Minimal Assistance 1=Total Assistance 5=Supervision or Setup 2=Maximal Assistance 6=Modified [place] 3=Moderate Assistance 7=Complete [place] Bed Mobility: 6 Transfers (B,C,W/C) (FIM): 6 Gait: 6 PT Evaluation-Current Subjective Patient is very agreeable to participate with therapy. She reports she wants to go home today. Pain Numeric Pain Scale: 0-No Pain Location: No Pain Reported Objective Patient Orientation: Normal For Age Problem Solving: Fair Attachments: Oxygen ROM/Strength ROM Lower Extremities bilateral LE WNL Strength Lower Extremities right knee flexion/extension 4/5; hip flexion 4/5; DF/PF 4/5 left knee flexion/extension 4/5; hip flexion 4/5; DF/PF 4/5 Integumentary/Posture Integumentary refer to nursing notes Bowel Incontinence: No Bladder Incontinence: No Posture WNL Neuromuscular (Tone, Coordination, Reflexes) grossly intact Sensory Vision: Functional Hearing: Functional Sensation Right Lower Extremit: Intact Sensation Left Lower Extremity: Intact Transfers Functional [place] Measure 0=Not Assessed/NA 4=Minimal Assistance 1=Total Assistance 5=Supervision or Setup 2=Maximal Assistance 6=Modified [place] 3=Moderate Assistance 7=Complete [place] Transfers (B, C, W/C) (FIM): 6 Scootin Rollin Supine to/from Sit: 6 Sit to/from Stand: 6 Gait Mode of Locomotion: Walk Anticipated Mode of Locomotion: Walk Gait (FIM): 6 Distance (FIM): 3=150 ft Distance: 225' Gait Level of Assist: 6 Gait Assistive Device: FWW Comments/Gait Description safe and functional with FWW Balance Sitting Static: Normal Sitting Dynamic: Normal Standing Static: Normal Standing Dynamic: Normal Assessment/Needs 62 y.o. female, will be seen for short term skilled PT to address functional mobility to ensure safe return to home with family. Rehab Potential: Poor Post Rehab Potential-Barriers: metastatic lung cancer PT Director Paid Media Goals Director Paid Media Goals PT Intermediate Goals Time Frame: Aug 02, 2017 Transfers (B,C,W/C) (FIM): 6 Gait (FIM): 6 Gait distance (FIM): 3=150 ft Distance: 250' Gait Level of Assist: 6 Gait Assistive Device: FWW PT Plan Problem List Problem List: Activity Tolerance, Functional Strength Treatment/Plan Treatment Plan: Continue Plan of Care Treatment Plan: Bed Mobility, Education, Functional Activity Iris, Functional Strength, Gait, Safety, Therapeutic Exercise, Transfers Treatment Duration: Aug 02, 2017 Frequency: 5 times per week Estimated Hrs Per Day: .25 hour per day Patient and/or Family Agrees t: Yes Safety Risks/Education Patient Education: Safety Issues Teaching Recipient: Patient Teaching Methods: Discussion Response to Teaching: Verbalize Understanding Discharge Recommendations Therapy D/C Recommendations: Home w/ Family Support Time/GCodes Time In: 955 Time Out: 1015 Total Billed Treatment Time: 20 Total Billed Treatment 1 visit EVModC 20 min G Codes Necessary: Yes PT/OT Therapy GCodes Therapy Functional Limitation: Physical Therapy Test(s)/Tool used to determine: Level of Assistance Scale Functional Limitation-Current Charge Code: MOBCUR Modifier: CI Functional Limitation-Goal Charge Code: MOBGOAL Modifier: CI MARY ANNE EMMANUEL PT Jul 29, 2017 10:46
[2017-07-29 12:00] VITALS: BP 146/72
[2017-07-29 15:41] VITALS: BP 135/81
--- NOTE | 2017-07-29 16:41 | Progress Note-Standard ---
Standard Progress Note Progress Notes/Assess & Plan Date Seen by Provider: Jul 29, 2017 Time Seen by Provider: 16:36 Progress/Assessment & Plan 62 year old female patient of Dr. Trinidad with history of metastatic non-small cell lung cancer to brain who completed whole brain radiation therapy in mid May 2017 and was started on palliative chemotherapy with weekly carboplatinum and paclitaxel regimen on 07/23/2017, was admitted to the hospital with the increasing confusion and fatigue. No evidence of infections. Medications adjusted and Valium as well as Xanax has been discontinued. Patient complained of intermittent back pain which is controlled with one hydrocodone tablet every 6 hours as needed. She is more alert today and is answering questions appropriately. She is eating better and denied any diarrhea or urinary symptoms. No chest pain, palpitations, orthopnea or PND. Patient ambulated with physical therapy today and complained of feeling tired afterwards. Physical therapy evaluation noted. Vital Sign - Last 12Hours Date Time Temp Pulse Resp B/P (MAP) Pulse Ox O2 Delivery O2 Flow Rate FiO2 07/29/17 15:41 97.9 82 18 135/81 (99) 98 Nasal Cannula 1.00 Physical examination today showed an elderly female, weak-appearing and answering questions appropriately. HEENT normocephalic with alopecia, extraocular muscles intact, conjunctivae pink , oral mucosa moist without lesions. Neck was supple with no JVD. No cervical, supraclavicular or axillary lymphadenopathy palpable. Chest was symmetrical. Lungs with diminished breath sounds bilaterally without wheezes or rales. Cardiovascular exam was regular in rate and rhythm. Grade 2 systolic murmur was heard. Abdomen was soft, nontender with no hepatosplenomegaly or other masses palpable. Extremities showed no edema. Neurological exam showed no focal motor deficits. Overall motor strength 4 over 5 bilaterally. Laboratory Tests 07/29/17 05:35 A/P: 1. Increased confusion and lethargy of undetermined etiology, rule out medications versus chemotherapy versus other. She is doing better today. I will discontinue the benzodiazepines. 2. Generalized fatigue with poor performance status, physical therapy consultation and evaluation noted. May need to continue this as outpatient. 3. access services representative we discussed her care with family members. Other family members indicated that they will take responsibility for her care at home. If stable and improving, may consider discharge tomorrow. 4. Non-small cell lung cancer with metastasis to the brain, status post whole brain radiation therapy. 5. Started on palliative chemotherapy with weekly carboplatinum and paclitaxel regimen on 07/23/2017. Hold further chemotherapy until her performance status improves. AKIKO ESPINAL Jul 29, 2017 16:41
[2017-07-29] MEDS: MAGNESIUM OXIDE (MAG-OX)400 MG TAB PO SCH (17:12)
[2017-07-29 19:27] VITALS: BP 158/77
[2017-07-30] VITALS: BP 125/67
[2017-07-30] MEDS: RT-ALBUTEROL SULF 2.5 MG/3 ML PRE-MIX VIAL INH PRN (03:06)
[2017-07-30 04:00] VITALS: BP 133/69
[2017-07-30] MEDS: HYDROcodone/APAP 5 MG/325 MG (LORTAB) TAB PO PRN ×3 (04:35→13:08)
[2017-07-30] MEDS: SUCRALFATE 1 GM (CARAFATE) TAB PO SCH ×2 (05:41→13:04)
[2017-07-30] MEDS: CATHETER FLUSH 10 ML SYR IV SCH (05:42)
[2017-07-30] MEDS: PANTOPRAZOLE 40 MG (PROTONIX) TAB PO SCH (05:42)
[2017-07-30 07:31] VITALS: BP 137/74
[2017-07-30] MEDS: FLUoxetine HCL 20 MG (PROzac) CAP PO SCH (07:57)
[2017-07-30] MEDS: MAGNESIUM OXIDE (MAG-OX)400 MG TAB PO SCH (07:57)
--- NOTE | 2017-07-30 10:41 | Physical Therapy Daily Note ---
PT Daily Note-Current Subjective Patient agrees to PT. She reports she hopes to return to home on this date. Pain Numeric Pain Scale: 0-No Pain Location: No Pain Reported Mental Status Patient Orientation: Normal For Age Attachments: Oxygen (2L) Transfers Functional [place] Measure 0=Not Assessed/NA 4=Minimal Assistance 1=Total Assistance 5=Supervision or Setup 2=Maximal Assistance 6=Modified [place] 3=Moderate Assistance 7=Complete IndependenceIRFPAI Quality Coding Scale 6 Independent with activity with or without an assistive device 5 Patient requires set up or clean up by helper. Patient completes activity by themselves 4 Supervision or touching assist (CGA). [place] provide cues , steadying assist 3 The helper provides less than half the effort to complete the activity 2 The helper provides more than half the effort to complete the activity 1 Dependent. The helper does all the effort to complete an activity 7 Patient refused to complete or attempt activity 9 The patient did not perform the activity before the current illness or injury 88 Not attempted due to Medical conditions or safety concerns Transfers (B, C, W/C) (FIM): 7 Scootin Rollin Supine to/from Sit: 7 Sit to/from Stand: 7 Weight Bearing Right Lower Extremity: Right Full Weight Bearing Left Lower Extremity: Left Full Weight Bearing Gait Training Gait (FIM): 6 Distance (FIM): 3=150 ft Distance: 375' Gait Level of Assist: 6 Gait Assistive Device: FWW safe and functional Assessment Current Status: Excellent Progress Patient is cognitively and physically at PLOF. PT to dismiss from services at this time. PT [place] Stained Glass Goals [place] Stained Glass Goals PT [place] Stained Glass Goals Time Frame: Aug 02, 2017 Transfers (B,C,W/C) (FIM): 6 Gait (FIM): 6 Gait distance (FIM): 3=150 ft Distance: 250' Gait Level of Assist: 6 Gait Assistive Device: FWW PT Plan Treatment/Plan Treatment Plan: Discontinue PT, goals met Treatment Plan: Bed Mobility, Education, Functional Activity Iris, Functional Strength, Gait, Safety, Therapeutic Exercise, Transfers Treatment Duration: Aug 02, 2017 Frequency: 5 times per week Estimated Hrs Per Day: .25 hour per day Patient and/or Family Agrees t: Yes Time/GCodes Time In: 950 Time Out: 1003 Total Billed Treatment Time: 13 Total Billed Treatment 1 visit GT 13 min G Codes Necessary: Yes PT/OT Therapy GCodes Therapy Functional Limitation: Physical Therapy Test(s)/Tool used to determine: Level of Assistance Scale Functional Limitation-Current Charge Code: MOBCUR Modifier: CI Functional Limitation-Goal Charge Code: [id number] Modifier: CI Functional Limitation-D/C Charge Codes: MOBDC Modifier: CI MARY ANNE EMMANUEL PT Jul 30, 2017 10:41
[2017-07-30 12:00] VITALS: BP 126/75
[2017-07-30] MEDS ORDERED: Hydrocodone Bit/Acetaminophen PO (14:03)
--- NOTE | 2017-07-30 14:21 | Oncology Discharge Summary ---
Diagnosis/Chief Complaint Date of Admission Jul 26, 2017 at 19:35 Date of Discharge Discharge Date: Jul 30, 2017 Discharge Time: 16:30 Discharge Diagnosis 1. Confusion, most likely drug over dose, narcotics and Benzodiazepines. 2. Non-small cell lung cancer with brain mets, s/p cranial radiation. Stable. 3. Home care/social issues. Reason Hospital Visit 62 year old female with history of metastatic non-small cell lung cancer to brain who completed whole brain radiation therapy in mid May 2017 and was started on palliative chemotherapy with weekly carboplatinum and paclitaxel regimen on 07/23/2017. She was admitted to the hospital with the increasing confusion and fatigue. No evidence of infections. Her urine was positive for narcotics and benzo. Her daughter who has been her neurocritical care physician at home was admitted to hospital due to the complications of her surgery. We suspected that patient was drug overdose and stopped her Benzodiazepine and Xanax. We also reduced her Hydrocodone dose from 10mg q 4-6 hrs for 5mg q 4hrs. Her mental status improved since the change of her medications. Patient complained of intermittent back pain which is controlled with one hydrocodone 5mg tablet every 6 hours as needed. She is more alert and is answering questions appropriately. She is eating better and denied any diarrhea or urinary symptoms. No chest pain, palpitations, orthopnea or PND. Patient ambulated with physical therapy. Social service was consulted and formed a discharge plan for monitor her pain medications at home. She is much improved and discharged to home with home health care and repair technician to monitoring patient's medications at home. We had been hold off her chemo while in the hospital. Discharge condition: alert and orientated x 3. Stable and much improved. Follow up: 08-22-[address] Hyde at [facility]. Rx: Hydrocodone 5/325 q4-6hrs po, #120 tabs. Hold off chemo Stop Valium and Xanax. If she needs anti-anxiety medication, she will need to call family doctor for treatment and management. Discharge Summary Discharge Instructions to patient/family Please see electronic discharge instructions given to patient. Discharge Medications Reviewed and agree with Discharge Medication list on patient's Discharge Instruction sheet Clinical Quality Measures DVT/VTE Risk/Contraindication: Risk Factor Score Per Nursin RFS Level Per Nursing on Admit: 4+=Very High LISA HYDE MD Jul 30, 2017 14:21
[2017-07-30 14:46] VITALS: BP 126/75
== END 2017-07-30 14:18 | disposition home health service (06) ==
LOC: EDUNIT# 16:33 → ER 16:34 → UNDOADMOB 18:10 → 4TH 18:10 → EDPENDDISTM 07-30 15:00
PROVIDERS: ADMIT Internal Medicine Hematology & Oncology; ATTEND Internal Medicine Hematology & Oncology
DX: R41.0 Disorientation, unspecified (principal); T40.601A Poisoning by unspecified narcotics, accidental (unintentional), initial encounter; T42.4X1A Poisoning by benzodiazepines, accidental (unintentional), initial encounter; C34.90 Malignant neoplasm of unspecified part of unspecified bronchus or lung; C79.31 Secondary malignant neoplasm of brain; Z92.21 Personal history of antineoplastic chemotherapy; Z92.3 Personal history of irradiation; I10 Essential (primary) hypertension; E78.00 Pure hypercholesterolemia, unspecified; K21.9 Gastro-esophageal reflux disease without esophagitis; F32.9 Major depressive disorder, single episode, unspecified; F03.90 Unspecified dementia, unspecified severity, without behavioral disturbance, psychotic disturbance, mood disturbance, and anxiety; Z87.891 Personal history of nicotine dependence; R53.83 Other fatigue
CPT/HCPCS: 36415; 70450; 71010; 80053; 80306; 81000; 83735; 85025; 94640; 94760; G0378

== ENCOUNTER 2017-08-16 13:00 | Emergency (ER) | payer MEDICARE ==
[~2017-08-16] VITALS: Ht 162.6 cm; Wt 44.5 kg
[~2017-08-16 13:00] MED LIST changes: +FLUT1AER; +Hydrocodone Bit/Acetaminophen PO
[2017-08-16] MEDS ORDERED: ONDA8TAB6 (13:49)
[2017-08-16] MEDS ORDERED: POLY17PO23 (13:49)
[2017-08-16] MEDS ORDERED: PRD10T (13:49)
[2017-08-16] MEDS ORDERED: NS IV 500 ML 500 ML IV ONE (14:06)
[2017-08-16] MEDS ORDERED: ONDANSETRON 4 MG/2 ML (SDV) Z0FRAN IVP ONE (14:15)
[2017-08-16] MEDS ORDERED: DEXAMETHASONE 10 MG/ML (DECADRON) 1 ML VIAL IV ONE (14:15)
--- NOTE | 2017-08-16 14:17 | ED General ---
General Chief Complaint: Abdominal/GI Problems Stated Complaint: N/V Nursing Triage Note: ARRIVED VIA AMB USING A WALKER. COMPLAINS OF N/V X1 WEEK ET STATE SHE VOMITS HER ZOFRAN. PT IS A CANCER PT WHO CALLED [facility] AND TOLD HER TO COME TO THE ER. PT ON HOME OXGEN AT 2L ET SATTING 81%. PLACED PT ON OUR OXYGEN AT 2L AND HER PULSE OX INCREASED TO 88%. INCRESASE TO 3L AND IT WOODROW TO THE MID TO HIGH 90'S. Nursing Sepsis Screen: No Definite Risk Source of Information: Patient, Family Exam Limitations: No Limitations History of Present Illness Time Seen by Provider: 14:03 Initial Comments Here with report of increased nausea and vomiting over the last week. Does have history of lung cancer and of metastatic brain cancer. She has been unable to eat or drink well. She also has been able to do her chemotherapy due to intolerance. They're going to recheck and retry next week on the chemotherapy. She does report increasing shortness of air. Denies fevers or diarrhea. Reports the vomiting increases and/or occurs also after blowing her nose. Timing/Duration: 1 Week, Getting Worse Severity: Moderate Modifying Factors: improves with Medication Associated Systoms: No Chest Pain, No Cough, No Fever/Chills, Headaches, Nausea /Vomiting, Shortness of Air, Weakness Allergies and Home Medications Allergies Coded Allergies: Sulfa (Sulfonamide Antibiotics) (Verified Allergy, Unknown, HIVES, ) morphine (Unverified Adverse Reaction, Mild, NAUSEA, 06/28/17) Home Medications Ondansetron HCl 8 Mg Tablet, (Reported) Polyethylene Glycol 3350 17 Gm Powd.pack, (Reported) Prednisone 10 Mg Tab, (Reported) Prednisone 20 Mg Tab, 40 MG PO DAILY, #8 Ref 0 Prescribed by: KOKO BROWER on 08/16/17 1630 Constitutional: see HPI, No chills, No fever EENTM: no symptoms reported, nose congestion Respiratory: No cough, short of breath Cardiovascular: No chest pain, No edema Gastrointestinal: No abdominal pain, nausea, vomiting Genitourinary: no symptoms reported Musculoskeletal: no symptoms reported Skin: no symptoms reported Psychiatric/Neurological: Denies Anxiety, Denies Depressed, Headache, Weakness All Other Systems Reviewed Negative Unless Noted: Yes Past Ymbwoib-Fedvbu-Anibzi Hx Patient Social History Alcohol Use: Denies Use Recreational Drug Use: No Smoking Status: Former Smoker Type Used: Cigarettes Former Smoker, Quit: Apr 12, 2017 2nd Hand Smoke Exposure: Yes Recent Foreign Travel: No Contact w/Someone Who Travel: No Recent Infectious Disease Expo: No Recent Hopitalizations: No Immunizations Up To Date Tetanus Booster (TDap): Unknown PED Vaccines UTD: No Seasonal Allergies Seasonal Allergies: No Surgeries History of Surgeries: Yes (D&C X 2, hemorrhoidectomy) Surgeries: Section, Hysterectomy Respiratory History of Respiratory Disorde: Yes (LUNG CA W/METS, O2 2L PRN) Respiratory Disorders: COPD Currently Using CPAP: No Currently Using BIPAP: No Cardiovascular History of Cardiac Disorders: Yes (TRICUSPID REGERG) Cardiac Disorders: High Cholesterol, Hypertension Neurological History of Neurological Disord: Yes (brain mets) Reproductive System Hx Reproductive Disorders: No Sexually Transmitted Disease: No HIV/AIDS: No Female Reproductive Disorders: Denies DIRECTOR CONSTRUCTION SERVICES History: Hysterectomy Genitourinary History of Genitourinary Disor: Yes (YEAST INFECTION WITH ABX) Gastrointestinal History of Gastrointestinal Di: Yes Gastrointestinal Disorders: Gastroesophageal Reflux, Hemorrhoids Musculoskeletal History of Musculoskeletal Dis: Yes Musculoskeletal Disorders: Fibromyalgia Endocrine History of Endocrine Disorders: No HEENT History of HEENT Disorders: No Loss of Vision: Bilateral Hearing Impairment: Denies Cancer History of Cancer: Yes (METASTATIC) Cancer: Lung Did You Recieve Any Treatments: No Type of Tx Receive: Radiation Psychosocial History of Psychiatric Problem: Yes Behavioral Health Disorders: Anxiety, Depression Integumentary History of Skin or Integumenta: No Blood Transfusions History of Blood Disorders: No Adverse Reaction to a Blood Tr: No (HAS HAD BLOOD WITH NO REACTION) Reviewed Nursing Assessment Reviewed/Agree w Nursing PMH: Yes Family Medical History Significant Family History: No Pertinent Family Hx Family Medial History: Patient reports no known family medical history. Physical Exam Vital Signs Vital Sign - Last 12Hours 08/16/17 13:31 Temp 98.0 Pulse 89 Resp 18 B/P (MAP) 163/99 (120) Pulse Ox 81 O2 Delivery Nasal Cannula O2 Flow Rate 2.00 Capillary Refill : Less Than 3 Seconds General Appearance: No Apparent Distress, WD/WN HEENT: Pharynx Normal, Other (left pupil reactive to light. Right pupil approximately 7 mm and nonreactive. Dry mucous membranes noted.) Neck: Non Tender, Supple Cardiovascular: Regular Rate, Rhythm, No Murmur Gastrointestinal: Non Tender, Soft Back: Normal Inspection, No CVA Tenderness, No Vertebral Tenderness Extremity: Normal Range of Motion, Non Tender Neurologic/Psychiatric: Alert, Oriented x3 Skin: Normal Color, Warm/Dry Progress/Results/Core Measures Suspected Sepsis Recent Fever Within 48 Hours: No Infection Criteria Present: Suspected New Infection New/Unexplained Altered Menta: No Sepsis Screen: No Definite Risk Sepsis Diagnosis: SIRS Temperature:98.0 Pulse: 89 Respiratory Rate: 18 Laboratory Tests 08/16/17 13:55: White Blood Count 10.1 Blood Pressure 163 /99 Mean: 120 Laboratory Tests 08/16/17 13:55: Creatinine 0.54L, Platelet Count 282, Total Bilirubin 0.4 Results/Orders Lab Results Laboratory Tests Test 08/16/17 13:55 08/16/17 15:48 Range/Units White Blood Count 10.1 4.3-11.0 10^3/uL Red Blood Count 4.13 L 4.35-5.85 10^6/uL Hemoglobin 11.6 11.5-16.0 G/DL Hematocrit 33 L 35-52 % Mean Corpuscular Volume 79 L 80-99 FL Mean Corpuscular Hemoglobin 28 25-34 PG Mean Corpuscular Hemoglobin Concent 36 32-36 G/DL Red Cell Distribution Width 14.0 10.0-14.5 % Platelet Count 282 130-400 10^3/uL Mean Platelet Volume 8.9 7.4-10.4 FL Neutrophils (%) (Auto) 86 H 42-75 % Lymphocytes (%) (Auto) 7 L 12-44 % Monocytes (%) (Auto) 7 0-12 % Eosinophils (%) (Auto) 0 0-10 % Basophils (%) (Auto) 0 0-10 % Neutrophils # (Auto) 8.7 H 1.8-7.8 X 10^3 Lymphocytes # (Auto) 0.7 L 1.0-4.0 X 10^3 Monocytes # (Auto) 0.7 0.0-1.0 X 10^3 Eosinophils # (Auto) 0.0 0.0-0.3 10^3/uL Basophils # (Auto) 0.0 0.0-0.1 10^3/uL Neutrophils % (Manual) 90 % Lymphocytes % (Manual) 5 % Monocytes % (Manual) 4 % Eosinophils % (Manual) 0 % Basophils % (Manual) 0 % Band Neutrophils 1 % Blood Morphology Comment NORMAL Sodium Level 137 135-145 MMOL/L Potassium Level 3.1 L 3.6-5.0 MMOL/L Chloride Level 96 L 98-107 MMOL/L Carbon Dioxide Level 29 21-32 MMOL/L Anion Gap 12 5-14 MMOL/L Blood Urea Nitrogen 12 7-18 MG/DL Creatinine 0.54 L 0.60-1.30 MG/DL Estimat Glomerular Filtration Rate > 60 BUN/Creatinine Ratio 22 Glucose Level 119 H 70-105 MG/DL Calcium Level 8.8 8.5-10.1 MG/DL Total Bilirubin 0.4 0.1-1.0 MG/DL Aspartate Amino Transf (AST/SGOT) 9 5-34 U/L Alanine Aminotransferase (ALT/SGPT) 6 0-55 U/L Alkaline Phosphatase 151 H 40-136 U/L Total Protein 5.3 L 6.4-8.2 GM/DL Albumin 3.0 L 3.2-4.5 GM/DL Urine Color YELLOW Urine Clarity SLIGHTLY CLOUDY Urine pH 8 5-9 Urine Specific [place] 1.015 L 1.016-1.022 Urine Protein NEGATIVE NEGATIVE Urine Glucose (UA) NEGATIVE NEGATIVE Urine Ketones 2+ H NEGATIVE Urine Nitrite NEGATIVE NEGATIVE Urine Bilirubin NEGATIVE NEGATIVE Urine Urobilinogen 1 NORMAL MG/DL Urine Leukocyte Esterase 1+ H NEGATIVE Urine RBC (Auto) NEGATIVE NEGATIVE Urine RBC NONE /HPF Urine WBC 0-2 /HPF Urine Crystals PRESENT H /LPF Urine Amorphous Sediment LARGE HERMINIO PHOSPHATE H /LPF Urine Bacteria FEW H /HPF Urine Casts NONE /LPF Urine Mucus SMALL H /LPF Urine Culture Indicated NO My Orders Orders - KOKO BROWER MD Cbc With Automated Diff (08/16/17 14:06) Comprehensive Metabolic Panel (08/16/17 14:06) Ua Culture If Indicated (08/16/17 14:06) Ondansetron Injection (Zofran Injectio (08/16/17 14:15) Saline Lock/Iv-Start (08/16/17 14:06) Ns Iv 500 Ml (Sodium Chloride 0.9%) (08/16/17 14:06) Dexamethasone Injection (Decadron Inject (08/16/17 14:15) Chest Pa/Lat (2 View) (08/16/17 14:10) Manual Differential (08/16/17 13:55) Ct Head W Wo (08/16/17 14:52) Iohexol Injection (Omnipaque 350 Mg/Ml 1 (08/16/17 15:15) Pharmacy Communication (Pharmacy Communi (08/16/17 15:04) Ns (Ivpb) (Sodium Chloride 0.9% Ivpb Bag (08/16/17 15:15) Medications Given in ED Vital Signs/I&O Capillary Refill : Less Than 3 Seconds Blood Pressure Mean: 120 Progress Note : Progress Note Seen and evaluated. IV via port access which is part port. Labs, normal saline 500 mL bolus ordered. We will give Zofran 8 mg IV and Decadron 10 mg IV for nausea and suspected brain swelling. Monitor patient. Anticipate CT of the head. We will go ahead and get two-view chest x-ray now. 1531: I did discuss the case with Dr. Mukherjee. Patient appears to have similar size of both masses in her head and lungs. She seems to be improved currently. We discussed different options. I think she will benefit from steroids also related to bronchitis. After discussing this with the patient she does admit that she is had some shortness of breath and is waking up in the middle the night with her oxygen off and this seems to be precipitating the problem. We will initiate steroids for a few days and she will use inhalers as needed. She has follow-up on 08/22/2016 with her oncologist. Discharged home with return precautions. Patient verbalize understanding instructions and agreement with plan. Diagnostic Imaging Diagonstic Imaging: Xray Plain Films/CT/US/NM/MRI: chest Comments NAME: ANUPAMA CARBAJAL J MED REC#: [id number] PT STATUS: REG ER : 1955 PHYSICIAN: KOKO BROWER MD ADMIT DATE: 08/16/17/ER Draft Date of Exam:08/16/17 CHEST PA/LAT (2 VIEW) INDICATION: Nausea for a couple of weeks. History of lung cancer with metastatic disease.. TECHNIQUE: Two view chest, 3:35 p.m. CORRELATION STUDY: 07/26/2017. FINDINGS: Right-sided Xtfabw-L-Khmc catheter present. Abnormal masslike density of right hilum remains. There is right lung volume loss with elevation of the right diaphragm with tenting. Pleural effusion versus pleural thickening. Findings are generally stable. Left lung hyperinflated with changes of COPD. Prominent interstitial markings may reflect mild edema as well. Heart size is stable. IMPRESSION: Unchanged right hilar mass and right lung volume loss. Small right pleural effusion, stable. There may be a component of mild interstitial edema over the left lung base. Dictated on workstation # [id number] Dict: 08/16/17 1523 Trans: 08/16/[address] [facility] [id number] Interpreted by: SANTIAGO PINK DO Electronically signed by: Abiolagoesperanza Imaging: CT Plain Films/CT/US/NM/MRI: head Comments VIA [place], [place] NAME: ANUPAMA CARBAJAL [employer] REC#: [id number] PT STATUS: REG ER : 1955 PHYSICIAN: KOKO BROWER MD ADMIT DATE: 08/16/17/ER Draft Date of Exam:08/16/17 CT HEAD W WO INDICATION: Lung cancer. TECHNIQUE: CT brain obtained pre and post IV contrast with comparison to a noncontrast study of 07/26/2017 and to a contrast study of 05/14/2017. FINDINGS: There were no extra-axial fluid collections. No intracranial hemorrhage. There are mild diffuse atrophic changes. Ventricles do not appear dilated. There is an area of abnormal enhancement in the posterior aspect of the fourth ventricle measuring about 1.4 x 0.8 cm. When compared to the previous CT with contrast of 05/14/2017, this appears to be a little smaller, it was previously measured at 1.8 x 2.0 cm. There are no new lesions seen elsewhere. Ventricles remain nondilated. Calvarial windows are unremarkable. IMPRESSION: Compared to the prior contrast CT of 05/14/2017, the lesion within the fourth ventricle appears to be somewhat smaller in size but not resolved. There is no significant ventricular dilatation. There are no new lesions seen elsewhere. Dictated on workstation # [id number] Dict: 08/16/17 1515 Trans: 08/16/17 1524 [facility] [id number] Interpreted by: CAL BAILON MD Electronically signed by: Departure Impression Impression: Primary Impression: COPD (chronic obstructive pulmonary disease) Qualified Codes: J42 - Unspecified chronic bronchitis Disposition: HOME, SELF-CARE Condition: Improved Departure-Patient Inst. Decision time for Depature: 16:29 Referrals: GAMALIEL MCNEAL MD (PCP/Family) Primary Care Physician Patient Instructions: Chronic Obstructive Pulmonary Disease (COPD), Including Emphysema Add. Discharge Instructions: All discharge instructions reviewed with patient and/or family. Voiced understanding. Continue home medications as directed. Take other medicines as prescribed. You may use your rescue inhaler every 4 hours for wheezing or shortness of breath. Make sure you're wearing her oxygen and you should your oxygen saturations as needed. You may wear your oxygen at 2-3 L as needed area and keep appointment with your doctor next as scheduled. Return for worse pain, fever, vomiting, weakness, breathing problems or other concerns as needed. It is important that you eat and/or drink plenty of fluids with the steroids as they may cause more stomach upset. Scripts Prednisone (Prednisone) 20 Mg Tab 40 MG PO DAILY, #8 TAB 0 Refills Prov: KOKO BROWER MD 08/16/17 Copy Copies To 1: LISA HYDE MD, TIMOTHY D MD Aug 16, 2017 14:17
[2017-08-16 14:19] LABS: BASOPHILS % (AUTO) 0 % (0-10); EOSINOPHILS % (AUTO) 0 % (0-10); HEMATOCRIT 33 % (35-52); HEMOGLOBIN 11.6 G/DL (11.5-16.0); LYMPHOCYTES # (AUTO) 0.7 X 10^3 (1.0-4.0); LYMPHOCYTES % (AUTO) 7 % (12-44); MEAN CORPUSCULAR HEMOGLOBIN 28 PG (25-34); MEAN CORPUSCULAR HGB CONC 36 G/DL (32-36); MEAN CORPUSCULAR VOLUME 79 FL (80-99); MEAN PLATELET VOLUME 8.9 FL (7.4-10.4); MONOCYTES # (AUTO) 0.7 X 10^3 (0.0-1.0); MONOCYTES % (AUTO) 7 % (0-12); NEUTROPHILS # (AUTO) 8.7 X 10^3 (1.8-7.8); NEUTROPHILS % (AUTO) 86 % (42-75); PLATELET COUNT 282 10^3/uL (130-400); RED BLOOD COUNT 4.13 10^6/uL (4.35-5.85); WHITE BLOOD COUNT 10.1 10^3/uL (4.3-11.0)
[2017-08-16 14:31] LABS: ALANINE AMINOTRANSFERASE 6 U/L (0-55); ALKALINE PHOSPHATASE 151 U/L (40-136); BILIRUBIN,TOTAL 0.4 MG/DL (0.1-1.0); BUN/CREATININE RATIO 22; CALCIUM 8.8 MG/DL (8.5-10.1); CARBON DIOXIDE 29 MMOL/L (21-32); CHLORIDE 96 MMOL/L (98-107); CREATININE SERUM 0.54 MG/DL (0.60-1.30); GFR ESTIMATED > 60; GLUCOSE 119 MG/DL (70-105); POTASSIUM 3.1 MMOL/L (3.6-5.0); SODIUM 137 MMOL/L (135-145); TOTAL PROTEIN 5.3 GM/DL (6.4-8.2)
[2017-08-16 14:48] LABS: BAND NEUTROPHILS 1 %; BASOPHILS % (MANUAL) 0 %; EOSINOPHILS % (MANUAL) 0 %; LYMPHOCYTES % (MANUAL) 5 %; MONOCYTES % (MANUAL) 4 %; NEUTROPHILS % (MANUAL) 90 %; RBC MORPH NORMAL
[2017-08-16] MEDS ORDERED: IOHEXOL 350 MG/ML 100 ML (OMNIPAQUE 350) VIAL IV ONE (15:15)
[2017-08-16] MEDS ORDERED: NS 100 ML (IVPB) BAG IV ONE (15:15)
--- NOTE | 2017-08-16 15:24 | Diagnostic Imaging Report ---
INDICATION: Lung cancer. TECHNIQUE: CT brain obtained pre and post IV contrast with comparison to a noncontrast study of 07/26/2017 and to a contrast study of 05/14/2017. FINDINGS: There were no extra-axial fluid collections. No intracranial hemorrhage. There are mild diffuse atrophic changes. Ventricles do not appear dilated. There is an area of abnormal enhancement in the posterior aspect of the fourth ventricle measuring about 1.4 x 0.8 cm. When compared to the previous CT with contrast of 05/14/2017, this appears to be a little smaller, it was previously measured at 1.8 x 2.0 cm. There are no new lesions seen elsewhere. Ventricles remain nondilated. Calvarial windows are unremarkable. IMPRESSION: Compared to the prior contrast CT of 05/14/2017, the lesion within the fourth ventricle appears to be somewhat smaller in size but not resolved. There is no significant ventricular dilatation. There are no new lesions seen elsewhere. Dictated by: Dictated on workstation # [id number]
--- NOTE | 2017-08-16 15:29 | Diagnostic Imaging Report ---
INDICATION: Nausea for a couple of weeks. History of lung cancer with metastatic disease.. TECHNIQUE: Two view chest, 3:35 p.m. CORRELATION STUDY: 07/26/2017. FINDINGS: Right-sided Ulazoj-X-Csfr catheter present. Abnormal masslike density of right hilum remains. There is right lung volume loss with elevation of the right diaphragm with tenting. Pleural effusion versus pleural thickening. Findings are generally stable. Left lung hyperinflated with changes of COPD. Prominent interstitial markings may reflect mild edema as well. Heart size is stable. IMPRESSION: Unchanged right hilar mass and right lung volume loss. Small right pleural effusion, stable. There may be a component of mild interstitial edema over the left lung base. Dictated by: Dictated on workstation # [id number]
[2017-08-16 16:09] LABS: BILIRUBIN,URINE NEGATIVE (NEGATIVE); CLARITY,URINE SLIGHTLY CLOUDY; COLOR,URINE YELLOW; GLUCOSE, URINE (UA) NEGATIVE (NEGATIVE); KETONES,URINE 2+ (NEGATIVE); LEUKOCYTE ESTERASE ,URINE 1+ (NEGATIVE); NITRITE,URINE NEGATIVE (NEGATIVE); PH,URINE 8 (5-9); PROTEIN,URINE NEGATIVE (NEGATIVE); UROBILINOGEN,URINE 1 MG/DL (NORMAL)
[2017-08-16] MEDS ORDERED: PRD20T PO (16:30)
[2017-08-16 16:41] LABS: AMORPHOUS SEDIMENT,UR LARGE AMOR PHOSPHATE /LPF; BACTERIA,URINE FEW /HPF; WBC,URINE 0-2 /HPF
[2017-08-16 16:56] VITALS: BP 165/105
== END 2017-08-16 16:59 | disposition home or self-care (01) ==
LOC: EDUNIT# 13:00 → ER 13:03
DX: J44.9 Chronic obstructive pulmonary disease, unspecified (principal); C34.90 Malignant neoplasm of unspecified part of unspecified bronchus or lung; C79.31 Secondary malignant neoplasm of brain; F41.9 Anxiety disorder, unspecified; F32.9 Major depressive disorder, single episode, unspecified; K21.9 Gastro-esophageal reflux disease without esophagitis; Z87.891 Personal history of nicotine dependence; Z87.19 Personal history of other diseases of the digestive system; Z87.59 Personal history of other complications of pregnancy, childbirth and the puerperium; Z90.710 Acquired absence of both cervix and uterus; Z92.3 Personal history of irradiation
CPT/HCPCS: 36415; 70470; 71046; 80053; 81000; 85007; 85027; 99284

== ENCOUNTER 2017-08-23 09:35 | Outpatient (RCR) | payer MEDICARE, OTHER ==
[2017-06-13 14:13] LABS: BASOPHILS % (AUTO) 1 % (0-10); EOSINOPHILS # (AUTO) 0.1 10^3/uL (0.0-0.3); EOSINOPHILS % (AUTO) 1 % (0-10); HEMATOCRIT 41 % (35-52); HEMOGLOBIN 13.4 G/DL (11.5-16.0); LYMPHOCYTES # (AUTO) 0.6 X 10^3 (1.0-4.0); LYMPHOCYTES % (AUTO) 12 % (12-44); MEAN CORPUSCULAR HEMOGLOBIN 30 PG (25-34); MEAN CORPUSCULAR HGB CONC 32 G/DL (32-36); MEAN CORPUSCULAR VOLUME 92 FL (80-99); MEAN PLATELET VOLUME 9.9 FL (7.4-10.4); MONOCYTES # (AUTO) 0.4 X 10^3 (0.0-1.0); MONOCYTES % (AUTO) 7 % (0-12); NEUTROPHILS # (AUTO) 3.9 X 10^3 (1.8-7.8); NEUTROPHILS % (AUTO) 79 % (42-75); PLATELET COUNT 210 10^3/uL (130-400); RED BLOOD COUNT 4.52 10^6/uL (4.35-5.85); RED CELL DISTRIBUTION WIDTH 14.3 % (10.0-14.5); WHITE BLOOD COUNT 4.9 10^3/uL (4.3-11.0)
[2017-06-13 14:34] LABS: ALANINE AMINOTRANSFERASE 9 U/L (0-55); ALBUMIN 3.2 GM/DL (3.2-4.5); ALKALINE PHOSPHATASE 194 U/L (40-136); BILIRUBIN,TOTAL 0.4 MG/DL (0.1-1.0); BUN/CREATININE RATIO 17; CARBON DIOXIDE 22 MMOL/L (21-32); CHLORIDE 104 MMOL/L (98-107); CREATININE SERUM 0.64 MG/DL (0.60-1.30); GFR ESTIMATED > 60; GLUCOSE 94 MG/DL (70-105); POTASSIUM 3.7 MMOL/L (3.6-5.0); SODIUM 137 MMOL/L (135-145); TOTAL PROTEIN 5.2 GM/DL (6.4-8.2)
[2017-07-23 09:31] LABS: BASOPHILS % (AUTO) 0 % (0-10); EOSINOPHILS % (AUTO) 0 % (0-10); HEMATOCRIT 33 % (35-52); HEMOGLOBIN 10.7 G/DL (11.5-16.0); LYMPHOCYTES # (AUTO) 0.3 X 10^3 (1.0-4.0); LYMPHOCYTES % (AUTO) 3 % (12-44); MEAN CORPUSCULAR HEMOGLOBIN 29 PG (25-34); MEAN CORPUSCULAR HGB CONC 32 G/DL (32-36); MEAN CORPUSCULAR VOLUME 90 FL (80-99); MEAN PLATELET VOLUME 9.4 FL (7.4-10.4); MONOCYTES # (AUTO) 0.2 X 10^3 (0.0-1.0); MONOCYTES % (AUTO) 2 % (0-12); NEUTROPHILS # (AUTO) 11.3 X 10^3 (1.8-7.8); NEUTROPHILS % (AUTO) 96 % (42-75); PLATELET COUNT 253 10^3/uL (130-400); RED BLOOD COUNT 3.66 10^6/uL (4.35-5.85); RED CELL DISTRIBUTION WIDTH 14.6 % (10.0-14.5); WHITE BLOOD COUNT 11.8 10^3/uL (4.3-11.0)
[2017-07-23 09:51] LABS: ALANINE AMINOTRANSFERASE 7 U/L (0-55); ALBUMIN 3.4 GM/DL (3.2-4.5); ALKALINE PHOSPHATASE 117 U/L (40-136); BILIRUBIN,TOTAL 0.5 MG/DL (0.1-1.0); BUN/CREATININE RATIO 20; CALCIUM 8.9 MG/DL (8.5-10.1); CARBON DIOXIDE 27 MMOL/L (21-32); CHLORIDE 101 MMOL/L (98-107); CREATININE SERUM 0.64 MG/DL (0.60-1.30); GFR ESTIMATED > 60; GLUCOSE 136 MG/DL (70-105); POTASSIUM 3.4 MMOL/L (3.6-5.0); SODIUM 138 MMOL/L (135-145); TOTAL PROTEIN 5.4 GM/DL (6.4-8.2)
[2017-07-23 10:48] LABS: MAGNESIUM 1.5 MG/DL (1.8-2.4)
[~2017-08-23] VITALS: Ht 162.6 cm; Wt 48.1 kg
[~2017-08-23 09:35] MED LIST changes: +CARBOPLATIN 140 MG in D5W 50 ML IV(CANCER CTR) 50 ML IV SCH; +FAMOTIDINE 20MG/2ML IV (CANCER CTR) IV SCH; +NS IV 500 ML (CANCER CENTER) 500 ML ONE; +NS IV 500 ML (CANCER CENTER) IV SCH; +ONDA8TAB6; +PACLITAXEL 130 MG in NORMAL SALINE (CANCER CENTER) 250 ML IV SCH; +PALONOSETRON 0.25 MG, DEXAMETHASONE 10 MG/NS 50 ML IVPB IV PRN; +PALONOSETRON HCL 0.25 MG, DEXAMETHASONE PF INJ (CANCER C 10 MG in D5W 50 ML IV(CANCER C... IV PRN; +POLY17PO23; +PRD10T; +PRD20T PO; +diphenhydrAMINE 25 MG TAB (BENADRYL) CANCER CENTER PO SCH; +diphenhydrAMINE 50 MG/ML INJ (CANCER CENTER) IV ONE
[2017-08-23 10:11] LABS: BASOPHILS % (AUTO) 0 % (0-10); EOSINOPHILS # (AUTO) 0.1 10^3/uL (0.0-0.3); EOSINOPHILS % (AUTO) 1 % (0-10); HEMATOCRIT 37 % (35-52); HEMOGLOBIN 12.2 G/DL (11.5-16.0); LYMPHOCYTES # (AUTO) 0.8 X 10^3 (1.0-4.0); LYMPHOCYTES % (AUTO) 4 % (12-44); MEAN CORPUSCULAR HEMOGLOBIN 29 PG (25-34); MEAN CORPUSCULAR HGB CONC 33 G/DL (32-36); MEAN CORPUSCULAR VOLUME 86 FL (80-99); MEAN PLATELET VOLUME 10.1 FL (7.4-10.4); MONOCYTES % (AUTO) 6 % (0-12); NEUTROPHILS % (AUTO) 89 % (42-75); PLATELET COUNT 304 10^3/uL (130-400); RED BLOOD COUNT 4.26 10^6/uL (4.35-5.85); WHITE BLOOD COUNT 16.9 10^3/uL (4.3-11.0)
[2017-08-23 10:20] LABS: ALANINE AMINOTRANSFERASE 10 U/L (0-55); ALBUMIN 3.2 GM/DL (3.2-4.5); ALKALINE PHOSPHATASE 132 U/L (40-136); BILIRUBIN,TOTAL 0.6 MG/DL (0.1-1.0); BUN/CREATININE RATIO 23; CALCIUM 8.9 MG/DL (8.5-10.1); CARBON DIOXIDE 27 MMOL/L (21-32); CHLORIDE 102 MMOL/L (98-107); CREATININE SERUM 0.56 MG/DL (0.60-1.30); GFR ESTIMATED > 60; GLUCOSE 110 MG/DL (70-105); POTASSIUM 2.8 MMOL/L (3.6-5.0); SODIUM 140 MMOL/L (135-145); TOTAL PROTEIN 5.7 GM/DL (6.4-8.2)
== END 2017-08-25 | disposition home or self-care (01) ==
LOC: ONC 09:35
PROVIDERS: ATTEND Internal Medicine Hematology & Oncology
DX: Z51.11 Encounter for antineoplastic chemotherapy (principal); Z51.0 Encounter for antineoplastic radiation therapy; C79.31 Secondary malignant neoplasm of brain; C34.11 Malignant neoplasm of upper lobe, right bronchus or lung; C77.1 Secondary and unspecified malignant neoplasm of intrathoracic lymph nodes; J44.9 Chronic obstructive pulmonary disease, unspecified; J32.9 Chronic sinusitis, unspecified; R53.83 Other fatigue; F41.9 Anxiety disorder, unspecified; K85.90 Acute pancreatitis without necrosis or infection, unspecified; Z87.891 Personal history of nicotine dependence; Z79.899 Other long term (current) drug therapy
CPT/HCPCS: 36415; 36591; 77336; 80053; 82378; 83735; 85025; 93005; 96375; 96413; 96417; 99213

== ENCOUNTER 2017-09-06 13:47 | Emergency (ER) | payer MEDICARE ==
[~2017-09-06] VITALS: Ht 162.6 cm; Wt 40.4 kg
[~2017-09-06 13:47] MED LIST changes: -CARBOPLATIN 140 MG in D5W 50 ML IV(CANCER CTR) 50 ML IV SCH; -FAMOTIDINE 20MG/2ML IV (CANCER CTR) IV SCH; -NS IV 500 ML (CANCER CENTER) 500 ML ONE; -NS IV 500 ML (CANCER CENTER) IV SCH; -PACLITAXEL 130 MG in NORMAL SALINE (CANCER CENTER) 250 ML IV SCH; -PALONOSETRON 0.25 MG, DEXAMETHASONE 10 MG/NS 50 ML IVPB IV PRN; -PALONOSETRON HCL 0.25 MG, DEXAMETHASONE PF INJ (CANCER C 10 MG in D5W 50 ML IV(CANCER C... IV PRN; -diphenhydrAMINE 25 MG TAB (BENADRYL) CANCER CENTER PO SCH; -diphenhydrAMINE 50 MG/ML INJ (CANCER CENTER) IV ONE
[2017-09-06 16:09] LABS: BASOPHILS % (AUTO) 0 % (0-10); EOSINOPHILS # (AUTO) 0.1 10^3/uL (0.0-0.3); EOSINOPHILS % (AUTO) 1 % (0-10); HEMATOCRIT 38 % (35-52); HEMOGLOBIN 12.7 G/DL (11.5-16.0); LYMPHOCYTES # (AUTO) 1.3 X 10^3 (1.0-4.0); LYMPHOCYTES % (AUTO) 14 % (12-44); MEAN CORPUSCULAR HEMOGLOBIN 29 PG (25-34); MEAN CORPUSCULAR HGB CONC 34 G/DL (32-36); MEAN CORPUSCULAR VOLUME 86 FL (80-99); MEAN PLATELET VOLUME 9.9 FL (7.4-10.4); MONOCYTES # (AUTO) 0.5 X 10^3 (0.0-1.0); MONOCYTES % (AUTO) 6 % (0-12); NEUTROPHILS # (AUTO) 7.5 X 10^3 (1.8-7.8); NEUTROPHILS % (AUTO) 79 % (42-75); PLATELET COUNT 214 10^3/uL (130-400); RED BLOOD COUNT 4.41 10^6/uL (4.35-5.85); RED CELL DISTRIBUTION WIDTH 13.7 % (10.0-14.5); WHITE BLOOD COUNT 9.4 10^3/uL (4.3-11.0)
[2017-09-06 16:17] LABS: ALANINE AMINOTRANSFERASE < 6 U/L (0-55); ALBUMIN 3.4 GM/DL (3.2-4.5); ALKALINE PHOSPHATASE 136 U/L (40-136); BILIRUBIN,TOTAL 0.5 MG/DL (0.1-1.0); BUN/CREATININE RATIO 17; CALCIUM 9.2 MG/DL (8.5-10.1); CARBON DIOXIDE 28 MMOL/L (21-32); CHLORIDE 100 MMOL/L (98-107); CREATININE SERUM 0.53 MG/DL (0.60-1.30); GFR ESTIMATED > 60; GLUCOSE 106 MG/DL (70-105); POTASSIUM 2.8 MMOL/L (3.6-5.0); SODIUM 138 MMOL/L (135-145); TOTAL PROTEIN 5.7 GM/DL (6.4-8.2)
--- NOTE | 2017-09-06 16:26 | ED GI ---
General Chief Complaint: Abdominal/GI Problems Stated Complaint: N/V Nursing Triage Note: PT REPORTS VOMITING X 1 MONTH AND HAPPENING MORE FREQUENTLY. PT REPORTS FEELING HUNGRY AND EATING AND THEN VOMITING EVERY EVENING. PT REPORTS LOSING 6-7 LBS IN LAST 3 WEEKS, FEELING EXTREME WEAKNESS, FATIGUE, AND CONCERNED NOW THAT SHE IS DOWN TO 89LBS. PT IS CANCER PT, CURRENTLY WAITING TO GET STRONGER IN ORDER TO START CHEMO REGIMEN PER DR HYDE. PT ON CHRONIC O2 AT 3L. Sepsis Screen: No Definite Risk Source of Information: Patient Exam Limitations: No Limitations History of Present Illness Date Seen by Provider: Sep 06, 2017 Time Seen by Provider: 16:21 Initial Comments The patient is a 62-year-old white female with known metastatic adenocarcinoma lung. It appears her diagnosis date was about April 28. She has previously been treated for brain metastases. She reports that she has been vomiting for at least a month. She will attempt to eat and then vomited it right back up. This seems to be getting worse. She believes that she has lost about 7 pounds over the last week. She and her family apparently talked to the cancer center today and were told that they were out of ideas and that they should come to the emergency room. Severity/Quality: Moderate Activities at Onset: None Modifying Factors: Improves With Eating Associated Symptoms: Nausea/Vomiting, Weakness Allergies and Home Medications Allergies Coded Allergies: Sulfa (Sulfonamide Antibiotics) (Verified Allergy, Unknown, HIVES, ) morphine (Unverified Adverse Reaction, Mild, NAUSEA, 06/28/17) Home Medications Ondansetron HCl 8 Mg Tablet, (Reported) Polyethylene Glycol 3350 17 Gm Powd.pack, (Reported) Prednisone 10 Mg Tab, (Reported) Prednisone 20 Mg Tab, 40 MG PO DAILY, #8 Ref 0 Prescribed by: KOKO BROWER on 08/16/17 1630 Review of Systems Constitutional: see HPI EENTM: No Symptoms Reported Respiratory: Cough, SOA With Exertion Cardiovascular: No Symptoms Reported Gastrointestinal: Nausea, Poor Appetite, Poor Fluid Intake, Vomiting Genitourinary: No Symptoms Reported Musculoskeletal: muscle weakness Skin: no symptoms reported Psychiatric/Neurological: No Symptoms Reported Past Gcilaeg-Chpnsu-Mdxqsu Hx Patient Social History Alcohol Use: Denies Use Recreational Drug Use: No Smoking Status: Current Everyday Smoker Type Used: Cigarettes Former Smoker, Quit: Apr 12, 2017 2nd Hand Smoke Exposure: Yes Recent Foreign Travel: No Contact w/Someone Who Travel: No Recent Infectious Disease Expo: No Recent Hopitalizations: No Physical Abuse: No Sexual Abuse: No Mistreated: No Fear: No Immunizations Up To Date Tetanus Booster (TDap): Unknown PED Vaccines UTD: No Seasonal Allergies Seasonal Allergies: No Surgeries History of Surgeries: Yes (D&C X 2, hemorrhoidectomy) Surgeries: Section, Hysterectomy Respiratory History of Respiratory Disorde: Yes (LUNG CA W/METS, O2 2L PRN) Respiratory Disorders: COPD Currently Using CPAP: No Currently Using BIPAP: No Cardiovascular History of Cardiac Disorders: Yes (TRICUSPID REGERG) Cardiac Disorders: High Cholesterol, Hypertension Neurological History of Neurological Disord: Yes (brain mets) Reproductive System Hx Reproductive Disorders: No Sexually Transmitted Disease: No HIV/AIDS: No Female Reproductive Disorders: Denies [employer] History: Hysterectomy Genitourinary History of Genitourinary Disor: Yes (YEAST INFECTION WITH ABX) Gastrointestinal History of Gastrointestinal Di: Yes Gastrointestinal Disorders: Gastroesophageal Reflux, Hemorrhoids Musculoskeletal History of Musculoskeletal Dis: Yes Musculoskeletal Disorders: Fibromyalgia Endocrine History of Endocrine Disorders: No HEENT History of HEENT Disorders: No Loss of Vision: Bilateral Hearing Impairment: Denies Cancer History of Cancer: Yes (METASTATIC) Cancer: Lung Did You Recieve Any Treatments: No Type of Tx Receive: Radiation Psychosocial History of Psychiatric Problem: Yes Behavioral Health Disorders: Anxiety, Depression Suicide Risk Score: 1 Integumentary History of Skin or Integumenta: No Blood Transfusions History of Blood Disorders: No Adverse Reaction to a Blood Tr: No (HAS HAD BLOOD WITH NO REACTION) Family Medical History Significant Family History: No Pertinent Family Hx Family Medial History: Patient reports no known family medical history. Physical Exam Vital Signs VS - Last 72 Hours, by Label 09/06/17 15:06 Temp 98.0 Pulse 98 Resp 18 B/P (MAP) 161/103 (122) Pulse Ox 98 O2 Delivery Nasal Cannula O2 Flow Rate 3.00 Capillary Refill : Less Than 3 Seconds General Appearance: mild distress, other (very thin) HEENT: normal ENT inspection Neck: full range of motion Respiratory: decreased breath sounds (distant) Cardiovascular: normal peripheral pulses, regular rate, rhythm, no edema, no gallop, no JVD, no murmur Gastrointestinal: non tender, soft, no organomegaly, abnormal bowel sounds ( decreased) Extremities: normal range of motion, non-tender, normal inspection, no pedal edema, no calf tenderness, normal capillary refill, pelvis stable Neurologic/Psychiatric: iron molder helper II-XII nml as tested, no motor/sensory deficits, alert, normal mood/affect, oriented x 3 Skin: normal color, warm/dry Lymphatic: no adenopathy Progress/Results/Core Measures Results/Orders Lab Results Laboratory Tests Test 09/06/17 15:41 09/06/17 17:43 Range/Units White Blood Count 9.4 4.3-11.0 10^3/uL Red Blood Count 4.41 4.35-5.85 10^6/uL Hemoglobin 12.7 11.5-16.0 G/DL Hematocrit 38 35-52 % Mean Corpuscular Volume 86 80-99 FL Mean Corpuscular Hemoglobin 29 25-34 PG Mean Corpuscular Hemoglobin Concent 34 32-36 G/DL Red Cell Distribution Width 13.7 10.0-14.5 % Platelet Count 214 130-400 10^3/uL Mean Platelet Volume 9.9 7.4-10.4 FL Neutrophils (%) (Auto) 79 H 42-75 % Lymphocytes (%) (Auto) 14 12-44 % Monocytes (%) (Auto) 6 0-12 % Eosinophils (%) (Auto) 1 0-10 % Basophils (%) (Auto) 0 0-10 % Neutrophils # (Auto) 7.5 1.8-7.8 X 10^3 Lymphocytes # (Auto) 1.3 1.0-4.0 X 10^3 Monocytes # (Auto) 0.5 0.0-1.0 X 10^3 Eosinophils # (Auto) 0.1 0.0-0.3 10^3/uL Basophils # (Auto) 0.0 0.0-0.1 10^3/uL Sodium Level 138 135-145 MMOL/L Potassium Level 2.8 L 3.6-5.0 MMOL/L Chloride Level 100 98-107 MMOL/L Carbon Dioxide Level 28 21-32 MMOL/L Anion Gap 10 5-14 MMOL/L Blood Urea Nitrogen 9 7-18 MG/DL Creatinine 0.53 L 0.60-1.30 MG/DL Estimat Glomerular Filtration Rate > 60 BUN/Creatinine Ratio 17 Glucose Level 106 H 70-105 MG/DL Calcium Level 9.2 8.5-10.1 MG/DL Total Bilirubin 0.5 0.1-1.0 MG/DL Aspartate Amino Transf (AST/SGOT) 8 5-34 U/L Alanine Aminotransferase (ALT/SGPT) < 6 0-55 U/L Alkaline Phosphatase 136 40-136 U/L Total Protein 5.7 L 6.4-8.2 GM/DL Albumin 3.4 3.2-4.5 GM/DL Urine Color YELLOW Urine Clarity CLEAR Urine pH 7 5-9 Urine Specific [place] 1.005 L 1.016-1.022 Urine Protein 1+ H NEGATIVE Urine Glucose (UA) NEGATIVE NEGATIVE Urine Ketones NEGATIVE NEGATIVE Urine Nitrite NEGATIVE NEGATIVE Urine Bilirubin NEGATIVE NEGATIVE Urine Urobilinogen NORMAL NORMAL MG/DL Urine Leukocyte Esterase 3+ H NEGATIVE Urine RBC (Auto) NEGATIVE NEGATIVE Urine RBC NONE /HPF Urine WBC 10-25 H /HPF Urine Squamous Epithelial Cells 5-10 /HPF Urine Crystals NONE /LPF Urine Bacteria TRACE /HPF Urine Casts NONE /LPF Urine Mucus SMALL H /LPF Urine Culture Indicated YES My Orders Orders - NASIR SEVILLA MD Cbc With Automated Diff (09/06/17 15:58) Comprehensive Metabolic Panel (09/06/17 15:58) Ua Culture If Indicated (09/06/17 15:58) Ct Abdomen/Pelvis W (09/06/17 16:20) Iohexol Injection (Omnipaque 350 Mg/Ml 1 (09/06/17 16:45) Ns (Ivpb) (Sodium Chloride 0.9% Ivpb Bag (09/06/17 16:45) Pharmacy Communication (Pharmacy Communi (09/06/17 16:44) Urine Culture (09/06/17 17:43) Medications Given in ED Current Medications Medications Dose Ordered Sig/Portia Route Start Time Stop Time Status Last Admin Dose Admin Iohexol 100 ml ONCE ONCE IV 09/06/17 16:45 09/06/17 16:46 DC 09/06/17 17:04 75 ML Sodium Chloride 100 ml ONCE ONCE IV 09/06/17 16:45 09/06/17 16:46 DC 09/06/17 17:04 80 ML Vital Signs/I&O Vital Sign - Last 12Hours 09/06/17 15:06 Temp 98.0 Pulse 98 Resp 18 B/P (MAP) 161/103 (122) Pulse Ox 98 O2 Delivery Nasal Cannula O2 Flow Rate 3.00 Blood Pressure Mean: 122 Departure Communication (Admissions) Progress Notes 1813 CT scan showed no evidence of metastatic disease or obstruction. There is evidence of gallstones without clear evidence of inflammatory changes in the gallbladder. Impression Impression: Primary Impression: adenocarcinoma of the lung with metastases Additional Impression: persistent nausea and weight loss Disposition: HOME, SELF-CARE Condition: Stable/Unchanged Departure-Patient Inst. Decision time for Depature: 18:13 Referrals: GAMALIEL MCNEAL MD (PCP/Family) Primary Care Physician Patient Instructions: No Instuctions Given Add. Discharge Instructions: All discharge instructions reviewed with patient and/or family. Voiced understanding. Your CT scan showed gallstones. I am prescribing oral dissolve Zofran. Try using this about 20 minutes before you hoped to eat. Take only small meals. If by early next week this is caused no improvement discussed with your doctor the consideration of cholecystectomy Scripts Ondansetron (Zofran Odt) 8 Mg Tab.rapdis 8 MG PO every 4 hours, #30 TAB Prov: NASIR SEVILLA MD 09/06/17 NASIR SEVILLA MD Sep 06, 2017 16:26
[2017-09-06] MEDS ORDERED: NS 100 ML (IVPB) BAG IV ONE (16:45)
[2017-09-06] MEDS ORDERED: IOHEXOL 350 MG/ML 100 ML (OMNIPAQUE 350) VIAL IV ONE (16:45)
--- NOTE | 2017-09-06 17:45 | Diagnostic Imaging Report ---
PROCEDURE: CT abdomen and pelvis with contrast. TECHNIQUE: Multiple contiguous axial images were obtained through the abdomen and pelvis after administration of intravenous contrast. INDICATION: Lung cancer. FINDINGS: The previous CT abdomen/pelvis exam, performed on 07/02/2017, raised the question of mild pancreatitis. On this exam, the pancreas does not appear to be enlarged and there is no distortion of the peripancreatic fat to suggest acute pancreatitis. The prior exam also showed cholelithiasis without evidence for acute cholecystitis. On this exam, there are still small gallstones within the gallbladder but there is no thickening of the gallbladder wall or pericholecystic fluid to indicate acute cholecystitis. The spleen has an unusual enhancement pattern. This is probably related to a flow phenomena as opposed to a splenic infarct. The liver also has somewhat of a more heterogeneous appearance than on the prior exam. I suspect this too is a vascular phenomena as opposed to a parenchymal abnormality involving the liver. The liver and spleen have a normal appearance on the delayed image. The kidneys, adrenals, aorta and inferior vena cava show no sign of an acute abnormality. The stomach is not well-distended and consequently difficult to assess. There is no pelvic mass or free fluid collection noted. The uterus is surgically absent. The urinary bladder is distended by urine. There is no obvious bladder abnormality evident. The appendix was not well-visualized but there are no indirect signs of acute appendicitis. There are several fluid-filled segments of small bowel low in the pelvis. This appearance is nonspecific. The bone windows show no sign of a fracture or of a destructive lesion. The right pleural effusion, seen on the prior study, is again evident and no different. The left lung base remains generally clear. IMPRESSION: 1. There is no acute abnormality of the abdomen or pelvis. In particular, there is no sign of pancreatitis or acute cholecystitis. 2. The initial appearance of the liver and spleen is most likely due to a flow phenomena. 3. The fluid-filled segments of small bowel low in the pelvis are nonspecific. There is no evidence for a bowel obstruction. 4. There is persistent right pleural effusion. Dictated by: Dictated on workstation # [id number]
[2017-09-06 17:50] LABS: BILIRUBIN,URINE NEGATIVE (NEGATIVE); CLARITY,URINE CLEAR; COLOR,URINE YELLOW; GLUCOSE, URINE (UA) NEGATIVE (NEGATIVE); KETONES,URINE NEGATIVE (NEGATIVE); LEUKOCYTE ESTERASE ,URINE 3+ (NEGATIVE); NITRITE,URINE NEGATIVE (NEGATIVE); PH,URINE 7 (5-9); PROTEIN,URINE 1+ (NEGATIVE); UROBILINOGEN,URINE NORMAL (NORMAL)
[2017-09-06 18:00] LABS: BACTERIA,URINE TRACE /HPF
[2017-09-06] MEDS ORDERED: ONDA8TAB9 PO (18:15)
[2017-09-06] MEDS ORDERED: CEFD300C3 PO (18:27)
[2017-09-06 18:35] VITALS: BP 154/85
== END 2017-09-06 18:33 | disposition home or self-care (01) ==
LOC: EDUNIT# 13:47 → ER 13:49
DX: C34.91 Malignant neoplasm of unspecified part of right bronchus or lung (principal); C79.31 Secondary malignant neoplasm of brain; R11.2 Nausea with vomiting, unspecified; R63.4 Abnormal weight loss; F41.9 Anxiety disorder, unspecified; F32.9 Major depressive disorder, single episode, unspecified; K21.9 Gastro-esophageal reflux disease without esophagitis; J44.9 Chronic obstructive pulmonary disease, unspecified; E78.00 Pure hypercholesterolemia, unspecified; I10 Essential (primary) hypertension; F17.210 Nicotine dependence, cigarettes, uncomplicated; Z87.59 Personal history of other complications of pregnancy, childbirth and the puerperium; Z90.710 Acquired absence of both cervix and uterus; Z92.3 Personal history of irradiation; Z99.81 Dependence on supplemental oxygen
CPT/HCPCS: 36415; 74177; 80053; 81000; 85025; 87088

== ENCOUNTER → 2017-10-29 | Outpatient (CLI) | payer MEDICARE ==
[~2017-10-29] MED LIST changes: +CATHETER FLUSH 10 ML SYR IV PRN; +DRON5CAP14 PO; +IOHEXOL 350 MG/ML 100 ML (OMNIPAQUE 350) VIAL IV ONE; +MECL-106 PO; +NITR100C10 PO; +NS 250 ML (IVPB) BAG IV ONE; +OMEP20CA12 PO; +ONDA8TAB13 PO; +RECEIVED CONTRAST (Hold Metformin) IV SCH; -SCOP1PAT TD; +SCOP1PAT11 TD
--- NOTE | 2017-10-29 12:51 | Diagnostic Imaging Report ---
PROCEDURE: CT chest and abdomen with contrast. TECHNIQUE: Multiple contiguous axial images were obtained through the chest and abdomen after the administration of intravenous contrast. INDICATION: Lung cancer The previous CT chest exam performed on 04/10/2017 noted a spiculated mass in the right upper lobe measuring 2.0 x 3.1 CM. There is also a second smaller 1.2 x 0.7 CM parenchymal density in the right middle lobe. Right hilar and mediastinal adenopathy was also noted. All of these findings were felt to be neoplastic in nature. The subsequent PET/CT exam of 06/04/2017 noted hypermetabolic activity associated with the mass in the right upper lobe and in the right middle lobe. There is also extensive hypermetabolic activity in the mediastinal and right hilar adenopathy. In the interval since the prior exam a sizable mass has developed along the medial aspect of the right upper lobe and extending into the mediastinum. This mass measures approximately 3.4 x 7.4 CM and contains a large area of diminished density measuring 1.8 x 2.6. This area of diminished density probably reflects necrosis. There is also now a low-density subcarinal mass measuring 2.7 x 2.7 CM. This too should be considered neoplastic until proven otherwise. Furthermore in the interval since the prior exam at least a moderate amount of fluid has developed in the right lung. The fluid measures approximately 6.3 CM maximum depth. There is also some associated atelectasis/infiltrate in the right lower lobe. There are small (4 MM or less) parenchymal densities in the right midlung. These could represent small areas of neoplasm. There are also 2 small similar sized areas of increased density in the left upper lung. These were present on the prior CT chest exam and consequently more likely due to scar formation/chronic atelectasis than to neoplasm. The left lung is generally clear. The heart is stable in size. The aorta is not abnormally dilated and there is no sign of a dissection. There is no defect within the pulmonary arteries to indicate pulmonary embolus. The sections through the abdomen show that the liver and spleen are homogeneous and similar in appearance to the prior CT abdomen/pelvis exam from 09/06/2017. The gallbladder, the adrenals, the kidneys, the aorta and inferior vena cava and pancreas also seem similar to the prior exam. The stomach is partially filled with oral contrast, difficult to assess. The bone windows are unremarkable for a fracture or for a destructive lesion. IMPRESSION: 1. The appearance of the chest has worsened since the prior study as a large mass has developed along the medial aspect of the right upper lobe. The mass extends into the mediastinum and there is subcarinal adenopathy as well. This mass should be considered neoplastic until proven otherwise. 2. A moderate right pleural effusion has also developed in the interval since the prior exam. There is no acute cardiopulmonary abnormality noted otherwise. 3. The abdomen appeared stable when compared to the prior study. There is no sign of an acute abnormality and there is no evidence for metastatic disease. Dictated by: Dictated on workstation # [id number]
== END ==
LOC: RAD 09:09
PROVIDERS: ATTEND Internal Medicine Hematology & Oncology
DX: C34.10 Malignant neoplasm of upper lobe, unspecified bronchus or lung (principal); C79.31 Secondary malignant neoplasm of brain; J90 Pleural effusion, not elsewhere classified
CPT/HCPCS: 71260; 74160

== ENCOUNTER 2017-12-12 10:56 | Outpatient (RCR) | payer MEDICARE ==
[2017-10-02 13:36] LABS: BASOPHILS % (AUTO) 1 % (0-10); EOSINOPHILS # (AUTO) 0.1 10^3/uL (0.0-0.3); EOSINOPHILS % (AUTO) 1 % (0-10); HEMATOCRIT 39 % (35-52); HEMOGLOBIN 13.1 G/DL (11.5-16.0); LYMPHOCYTES # (AUTO) 0.5 X 10^3 (1.0-4.0); LYMPHOCYTES % (AUTO) 8 % (12-44); MEAN CORPUSCULAR HEMOGLOBIN 28 PG (25-34); MEAN CORPUSCULAR HGB CONC 34 G/DL (32-36); MEAN CORPUSCULAR VOLUME 85 FL (80-99); MEAN PLATELET VOLUME 10.1 FL (7.4-10.4); MONOCYTES # (AUTO) 0.4 X 10^3 (0.0-1.0); MONOCYTES % (AUTO) 7 % (0-12); NEUTROPHILS # (AUTO) 5.3 X 10^3 (1.8-7.8); NEUTROPHILS % (AUTO) 84 % (42-75); PLATELET COUNT 228 10^3/uL (130-400); RED BLOOD COUNT 4.61 10^6/uL (4.35-5.85); RED CELL DISTRIBUTION WIDTH 13.4 % (10.0-14.5); WHITE BLOOD COUNT 6.3 10^3/uL (4.3-11.0)
[2017-10-02 13:57] LABS: ALANINE AMINOTRANSFERASE 8 U/L (0-55); ALBUMIN 3.6 GM/DL (3.2-4.5); ALKALINE PHOSPHATASE 130 U/L (40-136); BILIRUBIN,TOTAL 0.4 MG/DL (0.1-1.0); BUN/CREATININE RATIO 24; CALCIUM 9.2 MG/DL (8.5-10.1); CARBON DIOXIDE 27 MMOL/L (21-32); CHLORIDE 100 MMOL/L (98-107); CREATININE SERUM 0.66 MG/DL (0.60-1.30); GFR ESTIMATED > 60; GLUCOSE 113 MG/DL (70-105); MAGNESIUM 1.7 MG/DL (1.8-2.4); POTASSIUM 3.9 MMOL/L (3.6-5.0); SODIUM 137 MMOL/L (135-145); TOTAL PROTEIN 6.1 GM/DL (6.4-8.2)
[~2017-12-12 10:56] MED LIST changes: -CATHETER FLUSH 10 ML SYR IV PRN; +DEXA4TAB PO; +HYDR-3812 PO; -IOHEXOL 350 MG/ML 100 ML (OMNIPAQUE 350) VIAL IV ONE; -NS 250 ML (IVPB) BAG IV ONE; +POLY17PO6 PO; -PROC10TA PO; +PROC10TA10 PO; -RECEIVED CONTRAST (Hold Metformin) IV SCH
== END 2017-12-31 | disposition home or self-care (01) ==
LOC: ONC 10:56
PROVIDERS: ATTEND Internal Medicine Hematology & Oncology
DX: Z51.0 Encounter for antineoplastic radiation therapy (principal); C79.31 Secondary malignant neoplasm of brain; C77.1 Secondary and unspecified malignant neoplasm of intrathoracic lymph nodes; J44.9 Chronic obstructive pulmonary disease, unspecified; J32.9 Chronic sinusitis, unspecified; R53.83 Other fatigue; K85.90 Acute pancreatitis without necrosis or infection, unspecified; Z87.891 Personal history of nicotine dependence; Z79.899 Other long term (current) drug therapy
CPT/HCPCS: 36415; 77336; 77417; 80053; 83735; 84443; 85025; 99213

== ENCOUNTER 2018-01-04 15:56 | Inpatient (IN) | payer MEDICARE ==
[~2018-01-04] VITALS: Ht 157.5 cm; Wt 38.6 kg
[2018-01-04] MEDS ORDERED: NS IV 1000 ML 1,000 ML IV ONE (16:06)
[2018-01-04 16:32] LABS: BASOPHILS % (AUTO) 0 % (0-10); EOSINOPHILS # (AUTO) 0.1 10^3/uL (0.0-0.3); EOSINOPHILS % (AUTO) 0 % (0-10); HEMATOCRIT 34 % (35-52); HEMOGLOBIN 10.4 G/DL (11.5-16.0); LYMPHOCYTES # (AUTO) 0.3 X 10^3 (1.0-4.0); LYMPHOCYTES % (AUTO) 2 % (12-44); MEAN CORPUSCULAR HEMOGLOBIN 26 PG (25-34); MEAN CORPUSCULAR HGB CONC 31 G/DL (32-36); MEAN CORPUSCULAR VOLUME 85 FL (80-99); MEAN PLATELET VOLUME 9.8 FL (7.4-10.4); MONOCYTES # (AUTO) 0.5 X 10^3 (0.0-1.0); MONOCYTES % (AUTO) 4 % (0-12); NEUTROPHILS # (AUTO) 12.7 X 10^3 (1.8-7.8); NEUTROPHILS % (AUTO) 94 % (42-75); PLATELET COUNT 246 10^3/uL (130-400); RED BLOOD COUNT 3.94 10^6/uL (4.35-5.85); RED CELL DISTRIBUTION WIDTH 14.4 % (10.0-14.5); WHITE BLOOD COUNT 13.6 10^3/uL (4.3-11.0)
[2018-01-04 16:50] LABS: CLARITY,URINE SLIGHTLY CLOUDY; COLOR,URINE YELLOW; GLUCOSE, URINE (UA) NEGATIVE (NEGATIVE); KETONES,URINE 1+ (NEGATIVE); LEUKOCYTE ESTERASE ,URINE 2+ (NEGATIVE); NITRITE,URINE POSITIVE (NEGATIVE); PH,URINE 6.5 (5-9); PROTEIN,URINE 2+ (NEGATIVE); UROBILINOGEN,URINE 4 MG/DL (NORMAL)
[2018-01-04 16:52] LABS: ALANINE AMINOTRANSFERASE 8 U/L (0-55); ALBUMIN 2.6 GM/DL (3.2-4.5); ALKALINE PHOSPHATASE 236 U/L (40-136); BILIRUBIN,TOTAL 0.5 MG/DL (0.1-1.0); BUN/CREATININE RATIO 46; CALCIUM 8.5 MG/DL (8.5-10.1); CARBON DIOXIDE 32 MMOL/L (21-32); CHLORIDE 100 MMOL/L (98-107); GFR ESTIMATED > 60; GLUCOSE 122 MG/DL (70-105); POTASSIUM 2.7 MMOL/L (3.6-5.0); SODIUM 142 MMOL/L (135-145)
[2018-01-04 17:05] LABS: BAND NEUTROPHILS 0 %; BASOPHILS % (MANUAL) 0 %; EOSINOPHILS % (MANUAL) 0 %; LYMPHOCYTES % (MANUAL) 2 %; MONOCYTES % (MANUAL) 1 %; NEUTROPHILS % (MANUAL) 97 %; RBC MORPH NORMAL
[2018-01-04 17:10] LABS: BACTERIA,URINE LARGE /HPF; BILIRUBIN,URINE 1+ (NEGATIVE); WBC,URINE 25-50 /HPF
--- NOTE | 2018-01-04 17:11 | Diagnostic Imaging Report ---
INDICATION: Shortness of air, weakness. History of lung cancer with metastatic disease. COMPARISON: 10/30/17. EXAMINATION: Single view of the chest was obtained. FINDINGS: Increased right-sided pleural effusion has occurred. The right perihilar parenchymal density is less conspicuous. It is unclear if this is a new opacity in the right upper lobe projecting over the distal right first rib or if this is incidental superimposition. The left lung is clear. No pneumothorax. IMPRESSION: Increased right pleural effusion. Mixed changes with reduction in focal density in the right hilar region, however, increased opacity in the right apex. Superimposition of pneumonia in the right lower lobe could not be excluded. Dictated by: Dictated on workstation # [id number]
--- NOTE | 2018-01-04 17:13 | Diagnostic Imaging Report ---
INDICATION: Weakness, lethargy. History of metastatic lung cancer. EXAMINATION: KUB. FINDINGS: The bowel gas pattern is unremarkable. No evidence of obstruction and no suspicious fecal loading. There is some vascular calcifications, chronic. No destructive osseous lesion apparent. IMPRESSION: No acute appearing abnormality. Dictated by: Dictated on workstation # [id number]
[2018-01-04] MEDS ORDERED: POTASSIUM CL 10MEQ/50ML IVPB 50 ML IV ONE (17:15)
[2018-01-04 17:19] LABS: MAGNESIUM 1.7 MG/DL (1.8-2.4)
[2018-01-04] MEDS ORDERED: cefTRIAXone INJECTION 1,000 MG in NS (IVPB) 50 ML IV ONE (17:30)
[2018-01-04] MEDS ORDERED: PIPERACILLIN SODIUM/TAZOBACTAM 4.5 GM in D5W 100 ML IVPB 100 ML IV ONE (17:30)
--- NOTE | 2018-01-04 17:51 | ED General ---
General Chief Complaint: Respiratory Problems Stated Complaint: SOA,WEAKNESS Nursing Triage Note: PT PRESENTS TO ED WITH SOA AND LETHARGY STARTING TODAY. PT REPORTS HER DAUGHTER CALLED EMS BECAUSE SHE WAS WEAK AND LETHARGIC. PT HAS HX OF STAGE 4 LUNG CA WITH BRAIN METS. Nursing Sepsis Screen: No Definite Risk Source of Information: Patient, EMS, Old Records Exam Limitations: No Limitations History of Present Illness Date Seen by Provider: January 04, 2018 Time Seen by Provider: 15:57 Initial Comments This 62-year-old woman presents to the emergency room via EMS for weakness. She has also had to increase her nasal cannula oxygen flow Rate in recent days. She has not been ambulatory today or yesterday. She reports having diarrhea a couple of days ago. She has chronic cough that may be increased little bit. She has not used her nebulizer today. She is afebrile. She has metastatic lung cancer and is not presently under any treatment. Her oncologist is Dr. Hyde. Oxygen saturation on room air is 88 percent and in the 90s on 4 L nasal cannula. Allergies and Home Medications Allergies Coded Allergies: Sulfa (Sulfonamide Antibiotics) (Verified Allergy, Intermediate, HIVES, ) morphine (Unverified Adverse Reaction, Mild, NAUSEA, 06/28/17) Home Medications Dexamethasone 4 Mg Tablet, 4 MG PO BID 4mg tid for 3 days, then 4 mg bid for 3 days, 4mg po daily for 3 days, then off. Prescribed by: LUÍS HYDE on 11/07/171620 Diazepam 10 Mg Tablet, 10 MG PO BID, (Reported) Dronabinol 5 Mg Capsule, 5 MG PO BID, (Reported) Esomeprazole Magnesium 20 Mg Capsule.dr, 20 MG PO DAILY, (Reported) Fluoxetine HCl 20 Mg Capsule, 20 MG PO BID, (Reported) Hydrocodone/Acetaminophen 1 Each Tablet, 1 EACH PO TID Prescribed by: LUÍS HYDE on 11/07/171620 Hydrocodone/Acetaminophen 1 Each Tablet, 1 EACH PO Q4H PRN for PAIN-BREAKTHROUGH Prescribed by: LUÍS HYDE on 11/07/171620 Meclizine HCl 25 Mg Tablet, 25 MG PO TID PRN for DIZZINESS, (Reported) Meloxicam 7.5 Mg Tablet, 7.5 MG PO DAILY, (Reported) Nitrofurantoin Monohyd/M-Cryst 100 Mg Capsule, 100 MG PO BID, (Reported) 10 DAY SUPPLY FILLED 10-28-17 Ondansetron 8 Mg Tab.rapdis, 8 MG PO TID PRN for NAUSEA/VOMITING-1ST LINE, ( Reported) Polyethylene Glycol 3350 17 Gm Powd.pack, 17 GM PO BID Prescribed by: LUÍS HYDE on 11/07/17 1054 Tizanidine HCl 4 Mg Tablet, 4 MG PO BID, (Reported) Patient Home Medication List Home Medication List Reviewed: Yes Review of Systems Constitutional: see HPI EENTM: no symptoms reported Respiratory: see HPI Cardiovascular: no symptoms reported Gastrointestinal: no symptoms reported Genitourinary: no symptoms reported : No Musculoskeletal: no symptoms reported Skin: no symptoms reported Psychiatric/Neurological: No Symptoms Reported Hematologic/Lymphatic: See HPI Immunological/Allergic: see HPI Past Gxqtwtg-Cgwjux-Uvltgr Hx Patient Social History Alcohol Use: Denies Use Recreational Drug Use: No Smoking Status: Former Smoker Type Used: Cigarettes Former Smoker, Quit: May 02, 2017 2nd Hand Smoke Exposure: Yes Recent Foreign Travel: No Contact w/Someone Who Travel: No Recent Infectious Disease Expo: No Recent Hopitalizations: No Immunizations Up To Date Tetanus Booster (TDap): Unknown PED Vaccines UTD: No Date of Influenza Vaccine: May 13, 2017 Seasonal Allergies Seasonal Allergies: No Past Medical History Surgeries: Yes (D&C X 2, hemorrhoidectomy) Section, Hysterectomy Respiratory: Yes (LUNG CA W/METS, O2 2L PRN) COPD Currently Using CPAP: No Currently Using BIPAP: No Cardiac: Yes (TRICUSPID REGERG) High Cholesterol, Hypertension Neurological: Yes (brain mets) Reproductive Disorders: No 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 Sexually Transmitted Disease: No HIV/AIDS: No Genitourinary: Yes (YEAST INFECTION WITH ABX) Gastrointestinal: Yes (chronic abdominal pain) Gastroesophageal Reflux, Hemorrhoids Musculoskeletal: Yes Fibromyalgia Endocrine: No HEENT: No Loss of Vision: Bilateral Hearing Impairment: Denies Cancer: Yes (METASTATIC to brain) Lung Did You Recieve Any Treatments: No What Type of Treatment Did You: Chemotherapy, Radiation Psychosocial: Yes Anxiety, Depression Integumentary: No Blood Disorders: No Adverse Reaction/Blood Tranf: No (HAS HAD BLOOD WITH NO REACTION) Family Medical History Patient reports no known family medical history. No Pertinent Family Hx Physical Exam Vital Signs Vital Signs - First Documented 01/04/18 16:09 Temp 98.3 Pulse 92 Resp 18 B/P (MAP) 134/78 (96) Pulse Ox 97 Capillary Refill : Less Than 3 Seconds General Appearance: No Apparent Distress, WD/WN, Cachetic HEENT: PERRL/EOMI, Normal ENT Inspection, Other (oropharynx dry) Neck: Normal Inspection Respiratory: No Accessory Muscle Use, No Respiratory Distress, Wheezing (mild) , Other (slight tachypnea) Cardiovascular: Regular Rate, Rhythm, No Edema, No Murmur Gastrointestinal: Normal Bowel Sounds, Non Tender, Soft Extremity: Normal Inspection, No Pedal Edema Neurologic/Psychiatric: Alert, Oriented x3, No Motor/Sensory Deficits, Normal Mood/Affect, payable representative II-XII Norm as Tested Skin: Normal Color, Warm/Dry Progress/Results/Core Measures Suspected Sepsis Recent Fever Within 48 Hours: No Infection Criteria Present: None New/Unexplained Altered Menta: No Sepsis Screen: No Definite Risk SIRS Temperature:98.3 Pulse: 92 Respiratory Rate: 18 Laboratory Tests 01/04/18 16:23: White Blood Count 13.6H Blood Pressure 134 /78 Mean: 96 Laboratory Tests 01/04/18 16:23: Creatinine 0.50L, Platelet Count 246, Total Bilirubin 0.5 Results/Orders Lab Results Laboratory Tests Test 01/04/18 16:23 01/04/18 16:46 Range/Units White Blood Count 13.6 H 4.3-11.0 10^3/uL Red Blood Count 3.94 L 4.35-5.85 10^6/uL Hemoglobin 10.4 L 11.5-16.0 G/DL Hematocrit 34 L 35-52 % Mean Corpuscular Volume 85 80-99 FL Mean Corpuscular Hemoglobin 26 25-34 PG Mean Corpuscular Hemoglobin Concent 31 L 32-36 G/DL Red Cell Distribution Width 14.4 10.0-14.5 % Platelet Count 246 130-400 10^3/uL Mean Platelet Volume 9.8 7.4-10.4 FL Neutrophils (%) (Auto) 94 H 42-75 % Lymphocytes (%) (Auto) 2 L 12-44 % Monocytes (%) (Auto) 4 0-12 % Eosinophils (%) (Auto) 0 0-10 % Basophils (%) (Auto) 0 0-10 % Neutrophils # (Auto) 12.7 H 1.8-7.8 X 10^3 Lymphocytes # (Auto) 0.3 L 1.0-4.0 X 10^3 Monocytes # (Auto) 0.5 0.0-1.0 X 10^3 Eosinophils # (Auto) 0.1 0.0-0.3 10^3/uL Basophils # (Auto) 0.0 0.0-0.1 10^3/uL Neutrophils % (Manual) 97 % Lymphocytes % (Manual) 2 % Monocytes % (Manual) 1 % Eosinophils % (Manual) 0 % Basophils % (Manual) 0 % Band Neutrophils 0 % Blood Morphology Comment NORMAL Sodium Level 142 135-145 MMOL/L Potassium Level 2.7 L 3.6-5.0 MMOL/L Chloride Level 100 98-107 MMOL/L Carbon Dioxide Level 32 21-32 MMOL/L Anion Gap 10 5-14 MMOL/L Blood Urea Nitrogen 23 H 7-18 MG/DL Creatinine 0.50 L 0.60-1.30 MG/DL Estimat Glomerular Filtration Rate > 60 BUN/Creatinine Ratio 46 Glucose Level 122 H 70-105 MG/DL Calcium Level 8.5 8.5-10.1 MG/DL Magnesium Level 1.7 L 1.8-2.4 MG/DL Total Bilirubin 0.5 0.1-1.0 MG/DL Aspartate Amino Transf (AST/SGOT) 9 5-34 U/L Alanine Aminotransferase (ALT/SGPT) 8 0-55 U/L Alkaline Phosphatase 236 H 40-136 U/L C-Reactive Protein High Sensitivity 18.12 H 0.00-0.50 MG/DL Total Protein 5.0 L 6.4-8.2 GM/DL Albumin 2.6 L 3.2-4.5 GM/DL Urine Color YELLOW Urine Clarity SLIGHTLY CLOUDY Urine pH 6.5 5-9 Urine Specific [place] 1.015 L 1.016-1.022 Urine Protein 2+ H NEGATIVE Urine Glucose (UA) NEGATIVE NEGATIVE Urine Ketones 1+ H NEGATIVE Urine Nitrite POSITIVE H NEGATIVE Urine Bilirubin 1+ H NEGATIVE Urine Urobilinogen 4 H NORMAL MG/DL Urine Leukocyte Esterase 2+ H NEGATIVE Urine RBC (Auto) 1+ H NEGATIVE Urine RBC 2-5 H /HPF Urine WBC 25-50 H /HPF Urine Squamous Epithelial Cells 2-5 /HPF Urine Crystals NONE /LPF Urine Bacteria LARGE H /HPF Urine Casts NONE /LPF Urine Mucus NEGATIVE /LPF Urine Culture Indicated YES My Orders Orders - VIANCA DERAS MD Cbc With Automated Diff (01/04/18 16:06) Comprehensive Metabolic Panel (01/04/18 16:06) Ua Culture If Indicated (01/04/18 16:06) Chest 1 View, Ap/Pa Only (01/04/18 16:06) Abdomen/Kub 1view (01/04/18 16:06) Implanted Port: Access (01/04/18 16:06) Ns Iv 1000 Ml (Sodium Chloride 0.9%) (01/04/18 16:06) Manual Differential (01/04/18 16:23) Potassium Cl 10meq/50ml Ivpb (Kcl 10 Meq (01/04/18 17:15) Hs C Reactive Protein (01/04/18 17:04) Magnesium (01/04/18 17:04) Urine Culture (01/04/18 16:46) Blood Culture (01/04/18 17:17) Lactic Acid Analyzer (01/04/18 17:17) Ceftriaxone Injection (Rocephin Injectio (01/04/18 17:30) Piperacillin Sodium/Tazobactam (Zosyn Vi (01/04/18 17:30) Medications Given in ED Current Medications Medications Dose Ordered Sig/Portia Route Start Time Stop Time Status Last Admin Dose Admin Potassium Chloride 50 ml @ 50 mls/hr ONCE ONCE IV 01/04/18 17:15 01/04/18 18:14 01/04/18 17:10 50 MLS/HR Sodium Chloride 1,000 ml @ 0 mls/hr Q0M ONCE IV 01/04/18 16:06 01/04/18 16:09 DC 01/04/18 17:10 500 MLS/HR Vital Signs/I&O 01/04/18 16:09 Temp 98.3 Pulse 92 Resp 18 B/P (MAP) 134/78 (96) Pulse Ox 97 Capillary Refill : Less Than 3 Seconds Blood Pressure Mean: 96 Progress Note : Progress Note Patient was seen and examined. She was found to be hypokalemic. 1 L of normal saline along with 10 mEq of potassium were infused in the ER. Zosyn was started for treatment of urinary tract infection. There were possible superimposed infiltrates on the chest x-ray. Zosyn is a good choice for treatment of the urinary tract infection because it would also cover respiratory pathology if it is present. Blood cultures and lactic acid were drawn. I did discuss CODE STATUS with the patient. She is contemplating her CODE STATUS but is uncertain at this time. She wishes to remain full code until she can discuss it further with family. Diagnostic Imaging Diagonstic Imaging: Xray Plain Films/CT/US/NM/MRI: chest Comments Chest x-ray viewed by me and report reviewed. See report below: NAME: ANUPAMA CARBAJAL [facility] REC#: [id number] PT STATUS: REG ER : 1955 PHYSICIAN: VIANCA DERAS MD ADMIT DATE: 01/04/18/ER Draft Date of Exam:01/04/18 CHEST 1 VIEW, AP/PA ONLY INDICATION: Shortness of air, weakness. History of lung cancer with metastatic disease. COMPARISON: 10/30/17. EXAMINATION: Single view of the chest was obtained. FINDINGS: Increased right-sided pleural effusion has occurred. The right perihilar parenchymal density is less conspicuous. It is unclear if this is a new opacity in the right upper lobe projecting over the distal right first rib or if this is incidental superimposition. The left lung is clear. No pneumothorax. IMPRESSION: Increased right pleural effusion. Mixed changes with reduction in focal density in the right hilar region, however, increased opacity in the right apex. Superimposition of pneumonia in the right lower lobe could not be excluded. Dictated on workstation # [id number] Dict: 01/04/18 1702 Trans: 01/04/18 1711 [facility] [id number] Interpreted by: MARLEEN MELO Diagonstic Imaging: Xray Plain Films/CT/US/NM/MRI: abdomen, pelvis Comments Abdominal x-ray viewed by me and report reviewed. See report below: NAME: ANUPAMA CARBAJAL [facility] REC#: [id number] PT STATUS: REG ER : 1955 PHYSICIAN: VIANCA DERAS MD ADMIT DATE: 01/04/18/ER Draft Date of Exam:01/04/18 ABDOMEN/KUB 1VIEW INDICATION: Weakness, lethargy. History of metastatic lung cancer. EXAMINATION: KUB. FINDINGS: The bowel gas pattern is unremarkable. No evidence of obstruction and no suspicious fecal loading. There is some vascular calcifications, chronic. No destructive osseous lesion apparent. IMPRESSION: No acute appearing abnormality. Dictated on workstation # [id number] Dict: 01/04/18 1703 Trans: 01/04/18 1713 [facility] [id number] Interpreted by: MARLEEN MELO Departure Communication (Admissions) Time/Spoke to Admitting Phy: 17:45 [place] Impression Primary Impression: Hypokalemia Additional Impressions: Urinary tract infection Qualified Codes: N39.0 - Urinary tract infection, site not specified Metastatic lung cancer (metastasis from lung to other site) Qualified Codes: C34.90 - Malignant neoplasm of unspecified part of unspecified bronchus or lung Generalized weakness Pulmonary infiltrate Disposition: 01 HOME, SELF-CARE Condition: Improved Admissions Decision to Admit Reason: Admit from ER (General) Decision to Admit/Date: January 04, 2018 Time/Decision to Admit Time: 17:15 Departure-Patient Inst. Referrals: GAMALIEL MCNEAL MD (PCP/Family) Primary Care Physician VIANCA DERAS MD January 04, 2018 17:51
[2018-01-04 19:20] VITALS: BP 145/77
[2018-01-04 20:30] VITALS: BP 123/66
[2018-01-04] MEDS: HYDROcodone/APAP 10 MG/325 MG (LORTAB) TAB PO PRN (20:50)
[2018-01-04 20:55] VITALS: BP 132/70
[2018-01-04] MEDS ORDERED: RT-ALBUTEROL SULF 2.5 MG/3 ML PRE-MIX VIAL INH PRN (21:15)
[2018-01-04 21:30] VITALS: BP 128/69
[2018-01-04 22:30] VITALS: BP 138/78
[2018-01-04] MEDS ORDERED: ONDANSETRON 4 MG/2 ML (SDV) Z0FRAN IV PRN (22:30)
[2018-01-04] MEDS: D5 1/2 NS W/KCL 40 MEQ/L 1,000 ML IV SCH (23:27)
[2018-01-04] MEDS: PIPERACILLIN/TAZO 4.5 GM/D5W 100 ML IVPB IV SCH ×2 (23:28)
[2018-01-05] VITALS (7 sets, daily range): BP systolic 101–126; BP diastolic 57–78
[2018-01-05] MEDS: RT-ALBUTEROL SULF 2.5 MG/3 ML PRE-MIX VIAL INH SCH ×4 (07:26→19:34)
[2018-01-05] MEDS: HYDROcodone/APAP 10 MG/325 MG (LORTAB) TAB PO PRN ×2 (07:39→21:00)
[2018-01-05 08:07] LABS: BUN/CREATININE RATIO 16; CALCIUM 8.6 MG/DL (8.5-10.1); CARBON DIOXIDE 23 MMOL/L (21-32); CHLORIDE 107 MMOL/L (98-107); GFR ESTIMATED > 60; GLUCOSE 118 MG/DL (70-105); POTASSIUM 3.8 MMOL/L (3.6-5.0); SODIUM 139 MMOL/L (135-145)
[2018-01-05] MEDS: PIPERACILLIN/TAZO 4.5 GM/D5W 100 ML IVPB IV SCH ×4 (08:11→14:43)
[2018-01-05] MEDS ORDERED: ONDANSETRON 8 MG (ZOFRAN) ORAL DISSOLVE TAB PO PRN (08:30)
[2018-01-05] MEDS: FLUoxetine HCL 10 MG (PROzac) CAPSULE/TABLET PO SCH ×2 (10:38→20:54)
[2018-01-05] MEDS: DRONABINOL 2.5 MG (MARINOL) CAP PO SCH ×2 (10:38→16:11)
[2018-01-05] MEDS: DEXAMETHASONE 4 MG TAB (DECADRON) PO SCH ×2 (10:39→16:11)
[2018-01-05] MEDS: D5 1/2 NS W/KCL 40 MEQ/L 1,000 ML IV SCH ×2 (10:39→20:54)
[2018-01-05] MEDS: DIAZEPAM 5 MG (VALIUM) TABLET PO SCH ×2 (10:39→20:54)
--- NOTE | 2018-01-05 13:51 | History & Physical-Hospitalist ---
History of Present Illness HPI/Chief Complaint The patient is a 62-year-old white female with stage IV lung cancer and previously diagnosed brain metastases. She was brought to the emergency room last evening because of declining performance and confusion. She reports that she feels better today. She has some deficit in speech with word search problems. Source: patient Date Seen 01/05/18 Time Seen by Provider: 13:46 Attending Physician Franco Sevilla MD PCP Musa Broderick MD Referring Physician Date of Admission January 04, 2018 at 17:50 Home Medications & Allergies Home Medications Reviewed patient Home Medication Reconciliation performed by pharmacy medication reconciliations aerial survey technician and/or nursing. Patients Allergies have been reviewed. Allergies Allergies Coded Allergies Sulfa (Sulfonamide Antibiotics) (Verified Allergy, Intermediate, HIVES, ) morphine (Unverified Adverse Reaction, Mild, NAUSEA, 06/28/17) Past Ppfyite-Psxzxv-Feexck Hx Past Med/Social Hx: Reviewed Nursing Past Med/Soc Hx Patient Social History Alcohol Use: Denies Use Recreational Drug Use: No Smoking Status: Former Smoker Former Smoker, Quit: May 02, 2017 Type Used: Cigarettes 2nd Hand Smoke Exposure: Yes Physical Abuse Screen: No Sexual Abuse: No Recent Foreign Travel: No Contact w/other who traveled: No Recent Hopitalizations: No Recent Infectious Disease Expo: No Immunizations Up To Date Tetanus Booster (TDap): Unknown Pediatric: No Date of Influenza Vaccine: May 13, 2017 Seasonal Allergies Seasonal Allergies: No Past Medical History Surgeries: Section, Hysterectomy Respiratory: COPD Currently Using CPAP: No Currently Using BIPAP: No Cardiac: High Cholesterol, Hypertension : No Reproductive: No Sexually Transmitted Disease: No HIV/AIDS: No Female Reproductive Disorders: Denies Hysterectomy Gastrointestinal: Gastroesophageal Reflux, Hemorrhoids Musculoskeletal: Fibromyalgia Loss of Vision: Bilateral Hearing Impairment: Denies Cancer: Lung Did You Recieve Any Treatments: No What Type of Treatment Did You: Chemotherapy, Radiation Psychosocial: Anxiety, Depression History of Blood Disorders: No Adverse Reaction to Blood Anderson: No (HAS HAD BLOOD WITH NO REACTION) Family History Patient reports no known family medical history. No Pertinent Family Hx Review of Systems Constitutional: see HPI EENTM: no symptoms reported Respiratory: cough, dyspnea on exertion Cardiovascular: no symptoms reported Gastrointestinal: loss of appetite Genitourinary: no symptoms reported, see HPI Musculoskeletal: muscle weakness (generalized) Skin: no symptoms reported Psychiatric/Neurological: Depressed, Other (memory glitches) Physical Exam Physical Exam Vital Signs Vital Signs - First Documented 01/04/18 01/04/18 16:09 19:20 Temp 98.3 Pulse 92 Resp 18 B/P (MAP) 134/78 (96) Pulse Ox 97 O2 Delivery Nasal Cannula O2 Flow Rate 3.50 Capillary Refill : Less Than 3 SecondsLess Than 3 Seconds General Appearance: Other (the patient is very thin and looks much older than stated age) Eyes: Bilateral Eye Normal Inspection HEENT: Normal ENT Inspection Neck: Normal Inspection Respiratory: Other (shallow respirations and distant breath sounds) Cardiovascular: Regular Rate, Rhythm, No Edema, No Gallop, No JVD, No Murmur, Normal Peripheral Pulses Gastrointestinal: Other (scaphoid without masses or ascites) Back: Normal Inspection Extremity: Other (loss of muscle mass) Neurologic/Psychiatric: Alert Skin: Normal Color, Warm/Dry Results Results/Procedures Labs Laboratory Tests 01/04/18 16:23 01/05/18 07:31 Patient resulted labs reviewed. Assessment/Plan Admission Diagnosis Urinary tract infection. 2.confusion. 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 Admission Status: Inpatient Order (span 2 midnights) Reason for Inpatient Admission: Confusion and urinary tract infection. Assessment and Plan IV antibiotics and fluid resuscitation Clinical Quality Measures DVT/VTE Risk/Contraindication: Risk Factor Score Per Nursin RFS Level Per Nursing on Admit: 4+=Very High FRANCO SEVILLA MD January 05, 2018 13:51
[2018-01-06] MEDS: DEXAMETHASONE 4 MG TAB (DECADRON) PO SCH ×4 (00:01→23:48)
[2018-01-06] MEDS: PIPERACILLIN/TAZO 4.5 GM/D5W 100 ML IVPB IV SCH ×4 (00:01→06:48)
[2018-01-06 03:59] VITALS: BP 109/69
[2018-01-06] MEDS: HYDROcodone/APAP 10 MG/325 MG (LORTAB) TAB PO PRN ×3 (04:05→17:04)
[2018-01-06] MEDS: D5 1/2 NS W/KCL 40 MEQ/L 1,000 ML IV SCH ×3 (04:58→23:48)
[2018-01-06] MEDS: RT-ALBUTEROL SULF 2.5 MG/3 ML PRE-MIX VIAL INH SCH ×4 (07:10→19:12)
[2018-01-06] MEDS: FLUoxetine HCL 10 MG (PROzac) CAPSULE/TABLET PO SCH ×2 (08:18→20:28)
[2018-01-06] MEDS: DIAZEPAM 5 MG (VALIUM) TABLET PO SCH ×2 (08:18→20:26)
[2018-01-06 08:30] VITALS: BP 129/77
[2018-01-06] MEDS: DRONABINOL 2.5 MG (MARINOL) CAP PO SCH ×2 (11:31→17:01)
[2018-01-06 12:30] VITALS: BP 100/64
--- NOTE | 2018-01-06 12:33 | Progress Note-Hospitalist ---
Progress Note Progress Notes/Assess & Plan Date Seen 01/06/18 Time Seen by Provider: 12:30 Assessment & Plan The patient appears considerably more alert and generally brighter today. Vital signs are stable. Final urine culture has not been posted yet but the preliminary describes a gram-negative ehsan consistent with Escherichia coli. She is post radiation therapy of her brain metastasis. The daughter states that she was to have an MRI of the brain tomorrow. She was advised that this will need to be canceled. Physical exam: The patient is sitting up and alert. Lungs show distant breath sounds but are clear. CV is regular without murmur. Extremities show no edema. Impression: Carcinoma lung. 2.brain metastasis post radiation. 3.urinary tract infection. Plan: financial services professional for discharge planning and other services as necessary. Focused Exam Lactate Level 01/04/18 18:27: Lactic Acid Level 1.07 NASIR SEVILLA MD January 06, 2018 12:33
[2018-01-06] MEDS: cefTRIAXone INJECTION 1,000 MG in NS (IVPB) 50 ML IV SCH (13:58)
[2018-01-06 15:40] VITALS: BP 132/71
[2018-01-06 19:15] VITALS: BP 118/56
[2018-01-07] VITALS (7 sets, daily range): BP systolic 126–147; BP diastolic 61–85
[2018-01-07] MEDS: HYDROcodone/APAP 10 MG/325 MG (LORTAB) TAB PO PRN ×4 (02:20→15:32)
[2018-01-07] MEDS: RT-ALBUTEROL SULF 2.5 MG/3 ML PRE-MIX VIAL INH SCH ×4 (07:04→19:32)
[2018-01-07] MEDS: FLUoxetine HCL 10 MG (PROzac) CAPSULE/TABLET PO SCH ×2 (08:28→21:01)
[2018-01-07] MEDS: DEXAMETHASONE 4 MG TAB (DECADRON) PO SCH ×2 (08:28→15:32)
[2018-01-07] MEDS: DIAZEPAM 5 MG (VALIUM) TABLET PO SCH ×2 (08:28→21:01)
[2018-01-07] MEDS: cefTRIAXone INJECTION 1,000 MG in NS (IVPB) 50 ML IV SCH (08:29)
[2018-01-07] MEDS: D5 1/2 NS W/KCL 40 MEQ/L 1,000 ML IV SCH ×2 (08:29→21:07)
[2018-01-07] MEDS ORDERED: POLY17PO6 PO (09:44)
[2018-01-07] MEDS ORDERED: HYDR-3820 PO (09:44)
--- NOTE | 2018-01-07 10:24 | Progress Note-Hospitalist ---
Subjective HPI/CC On Admission Date Seen by Provider: January 07, 2018 Time Seen by Provider: 10:20 The patient is a 62-year-old white female with stage IV lung cancer and previously diagnosed brain metastases. She was brought to the emergency room last evening because of declining performance and confusion. She reports that she feels better today. She has some deficit in speech with word search problems. Subjective/Events-last exam Pt reports feeling slightly better today but very tired and weak. Falling asleep during my exam. Focused Exam Lactate Level 01/04/18 18:27: Lactic Acid Level 1.07 Objective Exam Vital Signs Vital Signs Date Time Temp Pulse Resp B/P (MAP) Pulse Ox O2 Delivery O2 Flow Rate FiO2 01/07/18 08:00 98.1 86 18 146/61 (89) 96 Nasal Cannula 3.00 Capillary Refill : Less Than 3 SecondsLess Than 3 Seconds General Appearance: Chronically ill, Cachetic Respiratory: No Respiratory Distress, Rhonci Cardiovascular: Regular Rate, Rhythm, No Murmur Gastrointestinal: Normal Bowel Sounds, Non Tender, Soft Extremity: No Calf Tenderness, No Pedal Edema Neurologic/Psychiatric: Alert, Oriented x3, Other (drowsy) Results/Procedures Lab Patient resulted labs reviewed. Assessment/Plan Assessment and Plan Assess & Plan/Chief Complaint UTI Diagnosis/Problems Diagnosis/Problems (1) Urinary tract infection Status: Acute Assessment & Plan: Culture growing e coli Pansensitive but has complete 4 days of antibiotics for uncomplicated cystitis so will DC Qualifiers: Urinary tract infection type: site unspecified Hematuria presence: without hematuria Qualified Codes: N39.0 - Urinary tract infection, site not specified (2) Metastatic lung cancer (metastasis from lung to other site) Status: Acute Assessment & Plan: She believes to be on curative treatment but previous admissions indicate she is on palliative treatment Will call Dr Trinidad to clarify Consider palliative care consult Qualifiers: Laterality: unspecified laterality Qualified Codes: C34.90 - Malignant neoplasm of unspecified part of unspecified bronchus or lung (3) Hypokalemia Status: Resolved (4) Generalized weakness Status: Acute Assessment & Plan: Will consult PT/OT Lives at home May require SNF stay prior to DC home Clinical Quality Measures DVT/VTE Risk/Contraindication: Risk Factor Score Per Nursin RFS Level Per Nursing on Admit: 4+=Very High TIMO LE MD January 07, 2018 10:24 am
[2018-01-07] MEDS ORDERED: RT-ALBUINH IH (10:40)
[2018-01-07] MEDS ORDERED: FLUT1AER INH (10:41)
[2018-01-07] MEDS: DRONABINOL 2.5 MG (MARINOL) CAP PO SCH ×2 (11:04→15:32)
--- NOTE | 2018-01-07 13:38 | Physical Therapy Evaluation ---
PT Evaluation-General Medical Diagnosis Admission Date January 04, 2018 at 17:50 Medical Diagnosis: hypokalemia/UTI Onset Date: January 04, 2018 Therapy Diagnosis Therapy Diagnosis: generalized weakness/debility Height/Weight Height (Feet): 5 Height (Inches): 2.00 Weight (Pounds): 85 Weight (Ounces): 1.0 Precautions Precautions/Isolations: Fall Prevention, Standard Precautions Weight Bear Status Right Lower Extremity: Right Weight Bearing/Tolerated Left Lower Extremity: Left Weight Bearing/Tolerated Referral Physician: Sushil Reason for Referral: Evaluation/Treatment Medical History Pertinent Medical History: COPD, GERD, HTN, OA, Smoking Additional Medical History Stage 4 lung cancer with brain mets Current History EMS with lethargy and SOA Reviewed History: Yes Social History Home: Single Level Current Living Status: Other Family Prior/[facility] Prior Level of Function Functional [place] Measure 0=Not Assessed/NA 4=Minimal Assistance 1=Total Assistance 5=Supervision or Setup 2=Maximal Assistance 6=Modified [place] 3=Moderate Assistance 7=Complete [place] Bed Mobility: 5 Transfers (B,C,W/C) (FIM): 5 Gait: 0 PT Evaluation-Current Subjective Patient agrees to PT. Pain Numeric Pain Scale: 0-No Pain Location: No Pain Reported Objective Patient Orientation: Confused Problem Solving: Poor Attachments: Oxygen ROM/Strength ROM Lower Extremities bilateral LE WNL Strength Lower Extremities 3-/5 grossly bilaterally (patient unable to follow direction) Integumentary/Posture Integumentary refer to nursing notes Bowel Incontinence: No Bladder Incontinence: No Posture slightly kyphosis Neuromuscular (Tone, Coordination, Reflexes) severely diminished coordination Sensory Vision: Functional Hearing: Functional Sensation Right Lower Extremit: Impaired Sensation Left Lower Extremity: Impaired (2) Transfers Functional [place] Measure 0=Not Assessed/NA 4=Minimal Assistance 1=Total Assistance 5=Supervision or Setup 2=Maximal Assistance 6=Modified [place] 3=Moderate Assistance 7=Complete [place] Transfers (B, C, W/C) (FIM): 2 Scootin Rollin Supine to/from Sit: 3 Sit to/from Stand: 2 Patient required max assist with sit to stand and SPT bed <> commode and to pull up pants after toileting. Patient is extremely weak. Balance Sitting Static: Fair Sitting Dynamic: Fair Standing Static: Poor Standing Dynamic: Poor Assessment/Needs 62 y.o. female, is currently requiring O2 and max assist for mobility due to weakness. PT to address strengthen and mobility as tolerated by patient. From a PT standpoint, patient will require 04/03 care for safety upon dismissal from hospital. Rehab Potential: Poor PT Senior Care Goals School Library Media Specialist Goals PT School Library Media Specialist Goals Time Frame: Jan 17, 2018 Transfers (B,C,W/C) (FIM): 4 Gait (FIM): 1 Gait distance (FIM): 1=up to 49 ft Distance: 10' Gait Level of Assist: 3 Gait Assistive Device: FWW PT Plan Problem List Problem List: Activity Tolerance, Functional Strength, Safety, Balance, Gait, Transfer, Bed Mobility Treatment/Plan Treatment Plan: Continue Plan of Care Treatment Plan: Bed Mobility, Education, Functional Activity Iris, Functional Strength, Gait, Safety, Therapeutic Exercise, Transfers Treatment Duration: Jan 17, 2018 Frequency: 5 times per week Estimated Hrs Per Day: .25 hour per day Patient and/or Family Agrees t: Yes Discharge Recommendations Therapy D/C Recommendations: Home w/ Family Support (04/03), Custodial Placement Time/GCodes Time In: 1302 Time Out: 1320 Total Billed Treatment Time: 18 Total Billed Treatment 1 visit EVMod 18 min MARY ANNE EMMANUEL PT January 07, 2018 13:38
--- NOTE | 2018-01-07 15:52 | Occupational Therapy Eval ---
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 Reported pain 7/10 but unable to describe where she hurt. Nursing offered pain meds Appearance Lethargic, frail Mental Status/Objective Patient Orientation: Person Attachments: IV Current Upper Extremity ROM Grossly WFL bilat Upper Extremity Strength grossly 3+/5 bilat. Difficulty pulling sleeves down on shirt. ADL-Treatment ADL-Current Pt got up with PT earlier today and required max assist to transfer to BSC beside bed and to pull pants up. She has been able to get a drink but nursing reported that she is refusing to eat. Functional [place] Measure 0=Not Assessed/NA 4=Minimal Assistance 1=Total Assistance 5=Supervision or Setup 2=Maximal Assistance 6=Modified [place] 3=Moderate Assistance 7=Complete IndependenceIRFPAI Quality Coding Scale 6 Independent with activity with or without an assistive device 5 Patient requires set up or clean up by helper. Patient completes activity by themselves 4 Supervision or touching assist (CGA). [place] provide cues , steadying assist 3 The helper provides less than half the effort to complete the activity 2 The helper provides more than half the effort to complete the activity 1 Dependent. The helper does all the effort to complete an activity 7 Patient refused to complete or attempt activity 9 The patient did not perform the activity before the current illness or injury 88 Not attempted due to Medical conditions or safety concerns Education OT Patient Education: Purpose of tx/functional activities, Rehab process Teaching Recipient: Patient Teaching Methods: Discussion Response to Teaching: Verbalize Understanding OT Correction Goals Correction Goals Time Frame: Jan 17, 2018 Eating (FIM): 5 Grooming(FIM): 5 Bathing(FIM): 5 Upper Body Dressing(FIM): 5 Lower Body Dressing(FIM): 5 Toileting(FIM): 5 Toilet/Commode Transfer(FIM): 5 Shower Transfer(FIM): 5 Additional Goals: 1-Demonstrate ADL Tasks, 2-Verbalize Understanding, 3- ImproveStrength/Iris 1=Demonstrate adherence to instructed precautions during ADL tasks. 2=Patient will verbalize/demonstrate understanding of assistive devices/ modifications for ADL. 3=Patient will improve strength/tolerance for activity to enable patient to perform ADL's. OT Education/Plan Problem List/Assessment Assessment: Decreased Activ Tolerance, Decreased UE Strength, Dependent Transfers, Impaired Cognition (confusion), Impaired Self-Care Skills Pt would benefit from skilled OT to increase her independence in basic self care Discharge Recommendations Plan/Recommendations: Continue POC Therapy D/C Recommendations: Custodial (TCU/NH) Comment Will most likely need 24 hr assistance with ADLs Treatment Plan/Plan of Care Treatment,Training & Education: Yes Patient would benefit from OT for education, treatment and training to promote independence in ADL's, mobility, safety and/or upper extremity function for ADL' s. Plan of Care: ADL Retraining, Functional Mobility, UE Funct Exercise/Act, UE Neuromus Re-Ed/Coord Treatment Duration: Jan 17, 2018 Frequency: 5 times per week Estimated Hrs Per Day: .5 hour per day Agreement: Yes Rehab Potential: Poor Time/GCodes Start Time: 15:25 Stop Time: 15:40 Total Time Billed (hr/min): 15 Billed Treatment Time visit, 15 minutes evaluation moderate intensity ERIKA IRENE OT January 07, 2018 15:51
[2018-01-08] VITALS: BP 159/65
[2018-01-08] MEDS: DEXAMETHASONE 4 MG TAB (DECADRON) PO SCH ×3 (00:38→17:03)
[2018-01-08] MEDS: HYDROcodone/APAP 10 MG/325 MG (LORTAB) TAB PO PRN ×5 (00:38→20:51)
[2018-01-08 04:00] VITALS: BP 135/81
[2018-01-08] MEDS: D5 1/2 NS W/KCL 40 MEQ/L 1,000 ML IV SCH (05:58)
[2018-01-08] MEDS: RT-ALBUTEROL SULF 2.5 MG/3 ML PRE-MIX VIAL INH SCH ×4 (07:53→19:09)
[2018-01-08 08:00] VITALS: BP 171/83
[2018-01-08] MEDS: DIAZEPAM 5 MG (VALIUM) TABLET PO SCH ×2 (08:02→20:51)
[2018-01-08] MEDS: cefTRIAXone INJECTION 1,000 MG in NS (IVPB) 50 ML IV SCH (08:03)
[2018-01-08] MEDS: FLUoxetine HCL 10 MG (PROzac) CAPSULE/TABLET PO SCH ×2 (08:15→20:51)
--- NOTE | 2018-01-08 10:56 | Occupational Ther Daily Note ---
OT Current Status-Daily Note Subjective Pt alert, sitting up in bed. Physician came into room. Pt agrees to therapy after encouragement. No c/o pain. States that she is weak. Mental Status/Objective Patient Orientation: Person, Place, Time, Situation Functional [place] Measure 0=Not Assessed/NA 4=Minimal Assistance 1=Total Assistance 5=Supervision or Setup 2=Maximal Assistance 6=Modified [place] 3=Moderate Assistance 7=Complete [place] ADL-Treatment Pt completed sponge bathe with bath pack. In supine, pt was able to cleanse mekhi area then rolled side to side using bedrails to cleanse buttocks with assist. Supine to sitting EOB with min A. Pt cleansed upper body by self after set up. Using hospital gown, pt was able to thread arms through sleeves and pull up to shldrs. Pt declined to don underwear, stating it was to much work for her. After therapy, pt lying in bed with call light/phone. Call light /phone in reach. Safety measures in place. All needs met in room. Bathing (FIM): 3 Bathing Location: L Arm, R Arm, L Upper Leg, R Upper Leg, Chest, Abdomen, Perineal Area Upper Body (FIM): 4 Pt weak and fatigues quickly. Multiple recovery breaks throughout treatment. OT Short Term Goals Short Term Goals 1=Demonstrate adherence to instructed precautions during ADL tasks. 2=Patient will verbalize/demonstrate understanding of assistive devices/ modifications for ADL. 3=Patient will improve strength/tolerance for activity to enable patient to perform ADL's. OT Business Analyst Manager Goals Business Analyst Manager Goals Time Frame: Jan 17, 2018 Eating (FIM): 5 Grooming(FIM): 5 Bathing(FIM): 5 Upper Body Dressing(FIM): 5 Lower Body Dressing(FIM): 5 Toileting(FIM): 5 Toilet/Commode Transfer(FIM): 5 Shower Transfer(FIM): 5 Additional Goals: 1-Demonstrate ADL Tasks, 2-Verbalize Understanding, 3- ImproveStrength/Iris 1=Demonstrate adherence to instructed precautions during ADL tasks. 2=Patient will verbalize/demonstrate understanding of assistive devices/ modifications for ADL. 3=Patient will improve strength/tolerance for activity to enable patient to perform ADL's. OT Education/Plan Problem List/Assessment Pt would benefit from skilled OT to increase her independence in basic self care Discharge Recommendations Plan/Recommendations: Continue POC Treatment Plan/Plan of Care Patient would benefit from OT for education, treatment and training to promote independence in ADL's, mobility, safety and/or upper extremity function for ADL' s. Plan of Care: ADL Retraining, Functional Mobility, UE Funct Exercise/Act, UE Neuromus Re-Ed/Coord Treatment Duration: Jan 17, 2018 Frequency: 5 times per week Estimated Hrs Per Day: .5 hour per day Agreement: Yes Rehab Potential: Poor Time/GCodes Start Time: 10:20 Stop Time: 11:00 Total Time Billed (hr/min): 40 Billed Treatment Time 1 visit-ADL 3 (40 min) REINIER WHITESIDE January 08, 2018 10:56
[2018-01-08] MEDS: DRONABINOL 2.5 MG (MARINOL) CAP PO SCH ×2 (11:42→17:03)
[2018-01-08 12:00] VITALS: BP 128/69
--- NOTE | 2018-01-08 13:25 | Progress Note-Hospitalist ---
Subjective HPI/CC On Admission Date Seen by Provider: January 08, 2018 Time Seen by Provider: 13:20 The patient is a 62-year-old white female with stage IV lung cancer and previously diagnosed brain metastases. She was brought to the emergency room last evening because of declining performance and confusion. She reports that she feels better today. She has some deficit in speech with word search problems. Subjective/Events-last exam SHe reports feeling better but not back to normal. Still feels weak and not eating much. Objective Exam Vital Signs Vital Signs Date Time Temp Pulse Resp B/P (MAP) Pulse Ox O2 Delivery O2 Flow Rate FiO2 01/08/18 08:00 97.5 74 20 171/83 (112) 100 Nasal Cannula 3.00 Capillary Refill : Less Than 3 SecondsLess Than 3 Seconds General Appearance: Chronically ill, Cachetic Respiratory: Lungs Clear, No Respiratory Distress Cardiovascular: Regular Rate, Rhythm, No Murmur Gastrointestinal: Normal Bowel Sounds, Non Tender, Soft Neurologic/Psychiatric: Alert, Oriented x3, Other (slowed speech) Results/Procedures Lab Patient resulted labs reviewed. Assessment/Plan Assessment and Plan Assess & Plan/Chief Complaint UTI Diagnosis/Problems Diagnosis/Problems (1) Urinary tract infection Status: Acute Assessment & Plan: Culture growing e coli Pansensitive completed 4 days of antibiotics for uncomplicated cystitis Qualifiers: Urinary tract infection type: site unspecified Hematuria presence: without hematuria Qualified Codes: N39.0 - Urinary tract infection, site not specified (2) Metastatic lung cancer (metastasis from lung to other site) Status: Acute Assessment & Plan: She believes to be on curative treatment but previous admissions indicate she is on palliative treatment Will call Dr Trinidad to clarify Consider palliative care consult Qualifiers: Laterality: unspecified laterality Qualified Codes: C34.90 - Malignant neoplasm of unspecified part of unspecified bronchus or lung (3) Generalized weakness Status: Acute Assessment & Plan: Will consult PT/OT Lives at home May require SNF stay prior to DC home Would prefer to go home at discharge but is not safe at this time (4) Hypokalemia Status: Resolved Assessment & Plan: resolved (5) Counseling regarding end of life decision making Assessment & Plan: Discussed her disease process and progress with multiple admissions and no improvement despite this and chemo and radiation Had previously been resistant to hospice education but would like to meet with Palliative Care RN for education Clinical Quality Measures DVT/VTE Risk/Contraindication: Risk Factor Score Per Nursin RFS Level Per Nursing on Admit: 4+=Very High TIMO LE MD January 08, 2018 1:25 pm
--- NOTE | 2018-01-08 14:46 | Physical Therapy Daily Note ---
PT Daily Note-Current Subjective Pt sitting on BSC working with Palliative Care Nurse upon arrival. Pt's Nurse also arrives and Palliative Care leaves at this time. Pt agrees to limited PT tx due to fatigue. Pain Location: No Pain Reported Mental Status Patient Orientation: Person, Place Transfers Functional [place] Measure 0=Not Assessed/NA 4=Minimal Assistance 1=Total Assistance 5=Supervision or Setup 2=Maximal Assistance 6=Modified [place] 3=Moderate Assistance 7=Complete IndependenceIRFPAI Quality Coding Scale 6 Independent with activity with or without an assistive device 5 Patient requires set up or clean up by helper. Patient completes activity by themselves 4 Supervision or touching assist (CGA). [place] provide cues , steadying assist 3 The helper provides less than half the effort to complete the activity 2 The helper provides more than half the effort to complete the activity 1 Dependent. The helper does all the effort to complete an activity 7 Patient refused to complete or attempt activity 9 The patient did not perform the activity before the current illness or injury 88 Not attempted due to Medical conditions or safety concerns Scootin Supine to/from Sit: 5 Sit to/from Stand: 4 Weight Bearing Right Lower Extremity: Right Weight Bearing/Tolerated Left Lower Extremity: Left Weight Bearing/Tolerated Treatments Pt transfers off BSC at CGA. Nurse takes care of pericare while pt steadies self with SNOWMOBILE MECHANIC's assist. SNOWMOBILE MECHANIC assists pt with SPT from BSC to EOB. SNOWMOBILE MECHANIC & pt discuss need for continued movement and exercise as much as pt can tolerate due to fatiguing quickly. Pt advises just cannot complete Ex today. SNOWMOBILE MECHANIC goes through how to complete Supine Ex (instructs). Pt resting Supine in bed at end of tx with all needs met, including call light in hand. Palliative Care Nurse returns with Malika to talk with pt at end of tx. Assessment Current Status: Fair Progress Pt fatigues quickly and demonstrates continued weakness. PT Faculty Physician Goals Faculty Physician Goals PT Faculty Physician Goals Time Frame: Jan 17, 2018 Transfers (B,C,W/C) (FIM): 4 Gait (FIM): 1 Gait distance (FIM): 1=up to 49 ft Distance: 10' Gait Level of Assist: 3 Gait Assistive Device: FWW PT Plan Problem List Problem List: Activity Tolerance, Functional Strength, Safety, Balance, Gait, Transfer, Bed Mobility Treatment/Plan Treatment Plan: Continue Plan of Care Treatment Plan: Bed Mobility, Education, Functional Activity Iris, Functional Strength, Gait, Safety, Therapeutic Exercise, Transfers Treatment Duration: Jan 17, 2018 Frequency: 5 times per week Estimated Hrs Per Day: .25 hour per day Patient and/or Family Agrees t: Yes Safety Risks/Education Patient Education: Transfer Techniques, Correct Positioning, Disease Process, Safety Issues Teaching Recipient: Patient Teaching Methods: Discussion Response to Teaching: Verbalize Understanding Time/GCodes Time In: 1323 Time Out: 1340 Total Billed Treatment Time: 17 Total Billed Treatment 1, FA (17m) G Codes Necessary: DIANNA Christiansen SNOWMOBILE MECHANIC January 08, 2018 14:46
[2018-01-08 16:00] VITALS: BP 148/77
[2018-01-08 19:56] VITALS: BP 124/65
[2018-01-09] VITALS: BP 120/71
[2018-01-09] MEDS: DEXAMETHASONE 4 MG TAB (DECADRON) PO SCH ×3 (00:23→16:38)
[2018-01-09 04:00] VITALS: BP 150/88
[2018-01-09] MEDS: RT-ALBUTEROL SULF 2.5 MG/3 ML PRE-MIX VIAL INH SCH ×4 (07:50→18:53)
[2018-01-09 08:00] VITALS: BP 146/80
[2018-01-09] MEDS: DIAZEPAM 5 MG (VALIUM) TABLET PO SCH ×2 (08:03→21:07)
[2018-01-09] MEDS: FLUoxetine HCL 10 MG (PROzac) CAPSULE/TABLET PO SCH ×2 (08:03→21:07)
[2018-01-09] MEDS: HYDROcodone/APAP 10 MG/325 MG (LORTAB) TAB PO PRN ×3 (08:04→17:19)
--- NOTE | 2018-01-09 09:32 | Occupational Ther Daily Note ---
OT Current Status-Daily Note Subjective Pt difficult to wake. When pt woke her words were slurred. Mental Status/Objective Functional [place] Measure 0=Not Assessed/NA 4=Minimal Assistance 1=Total Assistance 5=Supervision or Setup 2=Maximal Assistance 6=Modified [place] 3=Moderate Assistance 7=Complete [place] ADL-Treatment Fell asleep while she was talking initially. CABALLERO encouraged pt to drink or brush teeth. Pt sat up for a drink and was able to hold can but required assist to get straw to lips. Declined any further therapy stating she was to tired and just wanted to sleep. Functional [place] Measure 0=Not Assessed/NA 4=Minimal Assistance 1=Total Assistance 5=Supervision or Setup 2=Maximal Assistance 6=Modified [place] 3=Moderate Assistance 7=Complete IndependenceIRFPAI Quality Coding Scale 6 Independent with activity with or without an assistive device 5 Patient requires set up or clean up by helper. Patient completes activity by themselves 4 Supervision or touching assist (CGA). [place] provide cues , steadying assist 3 The helper provides less than half the effort to complete the activity 2 The helper provides more than half the effort to complete the activity 1 Dependent. The helper does all the effort to complete an activity 7 Patient refused to complete or attempt activity 9 The patient did not perform the activity before the current illness or injury 88 Not attempted due to Medical conditions or safety concerns OT Short Term Goals Short Term Goals 1=Demonstrate adherence to instructed precautions during ADL tasks. 2=Patient will verbalize/demonstrate understanding of assistive devices/ modifications for ADL. 3=Patient will improve strength/tolerance for activity to enable patient to perform ADL's. OT Mcc Goals Lithograph Printer Goals Time Frame: Jan 17, 2018 Eating (FIM): 5 Groomin Bathing(FIM): 5 Upper Body Dressing(FIM): 5 Lower Body Dressing(FIM): 5 Toileting(FIM): 5 Toilet/Commode Transfer(FIM): 5 Shower Transfer(FIM): 5 Additional Goals: 1-Demonstrate ADL Tasks, 2-Verbalize Understanding, 3- ImproveStrength/Iris 1=Demonstrate adherence to instructed precautions during ADL tasks. 2=Patient will verbalize/demonstrate understanding of assistive devices/ modifications for ADL. 3=Patient will improve strength/tolerance for activity to enable patient to perform ADL's. OT Education/Plan Problem List/Assessment Pt would benefit from skilled OT to increase her independence in basic self care Discharge Recommendations Plan/Recommendations: Continue POC Treatment Plan/Plan of Care Patient would benefit from OT for education, treatment and training to promote independence in ADL's, mobility, safety and/or upper extremity function for ADL' s. Plan of Care: ADL Retraining, Functional Mobility, UE Funct Exercise/Act, UE Neuromus Re-Ed/Coord Treatment Duration: Jan 17, 2018 Frequency: 5 times per week Estimated Hrs Per Day: .5 hour per day Agreement: Yes Rehab Potential: Poor Time/GCodes Start Time: 09:20 Stop Time: 09:28 Total Time Billed (hr/min): 8 Billed Treatment Time 1 visit-FA 1 (8 min) REINIER WHITESIDE January 09, 2018 09:32
--- NOTE | 2018-01-09 09:47 | Occupational Ther Daily Note ---
OT Current Status-Daily Note Subjective Pt difficult to wake. When pt woke her words were slurred. Mental Status/Objective Functional [place] Measure 0=Not Assessed/NA 4=Minimal Assistance 1=Total Assistance 5=Supervision or Setup 2=Maximal Assistance 6=Modified [place] 3=Moderate Assistance 7=Complete [place] ADL-Treatment Fell asleep while she was talking initially. [place] encouraged pt to drink or brush teeth. Pt sat up for a drink and was able to hold can but required assist to get straw to lips. Declined any further therapy stating she was to tired and just wanted to sleep. OT Short Term Goals Short Term Goals 1=Demonstrate adherence to instructed precautions during ADL tasks. 2=Patient will verbalize/demonstrate understanding of assistive devices/ modifications for ADL. 3=Patient will improve strength/tolerance for activity to enable patient to perform ADL's. OT Flight Surveyor Goals Flight Surveyor Goals Time Frame: Jan 17, 2018 Eating (FIM): 5 Grooming(FIM): 5 Bathing(FIM): 5 Upper Body Dressing(FIM): 5 Lower Body Dressing(FIM): 5 Toileting(FIM): 5 Toilet/Commode Transfer(FIM): 5 Shower Transfer(FIM): 5 Additional Goals: 1-Demonstrate ADL Tasks, 2-Verbalize Understanding, 3- ImproveStrength/Iris 1=Demonstrate adherence to instructed precautions during ADL tasks. 2=Patient will verbalize/demonstrate understanding of assistive devices/ modifications for ADL. 3=Patient will improve strength/tolerance for activity to enable patient to perform ADL's. OT Education/Plan Problem List/Assessment Pt would benefit from skilled OT to increase her independence in basic self care Discharge Recommendations Plan/Recommendations: Continue POC Treatment Plan/Plan of Care Patient would benefit from OT for education, treatment and training to promote independence in ADL's, mobility, safety and/or upper extremity function for ADL' s. Plan of Care: ADL Retraining, Functional Mobility, UE Funct Exercise/Act, UE Neuromus Re-Ed/Coord Treatment Duration: Jan 17, 2018 Frequency: 5 times per week Estimated Hrs Per Day: .5 hour per day Agreement: Yes Rehab Potential: Poor Time/GCodes Start Time: 09:20 Stop Time: 09:28 Total Time Billed (hr/min): 8 Billed Treatment Time 1 visit-FA 1 (8 min) REINIER WHITESIDE January 09, 2018 09:47
--- NOTE | 2018-01-09 11:23 | Physical Therapy Progress Note ---
Therapy Progress Note Patient is unable to actively participate with skilled therapy due to disease process. PT consulted with Dr. Ling and PT to dismiss patient from services at this time. MARY ANNE EMMANUEL PT January 09, 2018 11:23
[2018-01-09] MEDS: DRONABINOL 2.5 MG (MARINOL) CAP PO SCH ×2 (11:34→16:38)
--- NOTE | 2018-01-09 11:41 | Progress Note-Hospitalist ---
Subjective HPI/CC On Admission Date Seen by Provider: January 09, 2018 Time Seen by Provider: 10:50 The patient is a 62-year-old white female with stage IV lung cancer and previously diagnosed brain metastases. She was brought to the emergency room last evening because of declining performance and confusion. She reports that she feels better today. She has some deficit in speech with word search problems. Subjective/Events-last exam Pt reports feeling slightly better. Daughter at bedside to discuss goals of care. Objective Exam Vital Signs Vital Signs Date Time Temp Pulse Resp B/P (MAP) Pulse Ox O2 Delivery O2 Flow Rate FiO2 01/09/18 08:00 98.0 91 20 146/80 (102) 98 Nasal Cannula 3.00 Capillary Refill : Less Than 3 SecondsLess Than 3 Seconds General Appearance: No Apparent Distress, Chronically ill, Cachetic Respiratory: No Respiratory Distress Extremity: No Pedal Edema Neurologic/Psychiatric: Alert, Oriented x3, Other (flat affect) Results/Procedures Lab Patient resulted labs reviewed. Assessment/Plan Assessment and Plan Assess & Plan/Chief Complaint UTI Diagnosis/Problems Diagnosis/Problems (1) Metastatic lung cancer (metastasis from lung to other site) Status: Acute Assessment & Plan: She believes to be on curative treatment but previous admissions indicate she is on palliative treatment Discussed with Dr Trinidad- recommends hospice care Consider palliative care consult Qualifiers: Laterality: unspecified laterality Qualified Codes: C34.90 - Malignant neoplasm of unspecified part of unspecified bronchus or lung (2) Urinary tract infection Status: Resolved Assessment & Plan: Culture growing e coli Pansensitive completed 4 days of antibiotics for uncomplicated cystitis Qualifiers: Urinary tract infection type: site unspecified Hematuria presence: without hematuria Qualified Codes: N39.0 - Urinary tract infection, site not specified (3) Generalized weakness Status: Acute Assessment & Plan: Consult PT/OT Lives at home PT has signed off given poor physical stamina (4) Hypokalemia Status: Resolved Assessment & Plan: resolved (5) Counseling regarding end of life decision making Assessment & Plan: Discussed her disease process and progress with multiple admissions and no improvement despite this and chemo and radiation Had previously been resistant to hospice education but would like to meet with Palliative Care RN for education [phone] spent with patient and daughter discussing her terminal illness and recommendation for hospice care Pt has stated multiple times that she does not want to go to a prison and daughter would like to take her home if able They are interested in hospice care and will investigate with neighbor about his hospice agency Clinical Quality Measures DVT/VTE Risk/Contraindication: Risk Factor Score Per Nursin RFS Level Per Nursing on Admit: 4+=Very High Copy Copies To 1: GAMALIEL MCNEAL MD, KATELYN M MD January 09, 2018 11:41 am
[2018-01-09 12:00] VITALS: BP 106/52
[2018-01-09 16:45] VITALS: BP 129/82
[2018-01-09 20:45] VITALS: BP 119/66
[2018-01-10] MEDS: DEXAMETHASONE 4 MG TAB (DECADRON) PO SCH ×2 (00:25→09:03)
[2018-01-10 00:49] VITALS: BP 97/59
[2018-01-10] MEDS: HYDROcodone/APAP 10 MG/325 MG (LORTAB) TAB PO PRN (04:23)
[2018-01-10 04:32] VITALS: BP 130/79
[2018-01-10 06:49] VITALS: BP 130/79
[2018-01-10] MEDS: RT-ALBUTEROL SULF 2.5 MG/3 ML PRE-MIX VIAL INH SCH (06:49)
[2018-01-10 08:00] VITALS: BP 129/75
--- NOTE | 2018-01-10 08:28 | Discharge Summary-Hospitalist ---
Diagnosis/Chief Complaint Date of Admission January 04, 2018 at 5:50 pm Date of Discharge Discharge Date: Jan 10, 2018 Admission Diagnosis Urinary tract infection. 2.confusion. 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 Discharge Diagnosis (1) Metastatic lung cancer (metastasis from lung to other site) Status: Acute Assessment & Plan: She believes to be on curative treatment but previous admissions indicate she is on palliative treatment Discussed with Dr Trinidad- recommends hospice care Consider palliative care consult (2) Urinary tract infection Status: Resolved Assessment & Plan: Culture growing e coli Pansensitive completed 4 days of antibiotics for uncomplicated cystitis (3) Generalized weakness Status: Acute Assessment & Plan: Consult PT/OT Lives at home PT has signed off given poor physical stamina (4) Hypokalemia Status: Resolved Assessment & Plan: resolved (5) Counseling regarding end of life decision making Assessment & Plan: Discussed her disease process and progress with multiple admissions and no improvement despite this and chemo and radiation Had previously been resistant to hospice education but would like to meet with Palliative Care RN for education [id number] spent with patient and daughter discussing her terminal illness and recommendation for hospice care Pt has stated multiple times that she does not want to go to a longterm and daughter would like to take her home if able They are interested in hospice care and will investigate with neighbor about his hospice agency Discharge Summary Discharge Physical Exam Allergies: Coded Allergies: Sulfa (Sulfonamide Antibiotics) (Verified Allergy, Intermediate, HIVES, ) morphine (Unverified Adverse Reaction, Mild, NAUSEA, 06/28/17) Vitals & I&Os Vital Signs Date Time Temp Pulse Resp B/P (MAP) Pulse Ox O2 Delivery O2 Flow Rate FiO2 01/10/18 12:30 79 20 129/75 92 Nasal Cannula 3.00 01/10/18 08:00 97.6 General Appearance: Alert, Cooperative Cardiovascular: Regular Rate Hospital Course Pt was admitted for UTI with intractable nausea and vomiting. She was treated for her UTI and her nausea and vomiting improving. She does have a history of recurrent metastatic lung cancer with lesions on the brainstem and are a source of persistent nausea and vomiting. Palliative Care was consulted and a long discussion was had with patient and daughter about goals of care and hospice care was recommended. They met with [facility] but have elected to discharge home and follow up with them as an outpatient. She declined discharge to a Residential multiple times throughout this admission. Labs (last 24 hrs) Microbiology 01/04/18 Blood Culture - Final, Complete No growth 01/04/18 Urine Culture - Final, Complete Escherichia coli Patient resulted labs reviewed. Discussion & Recommendations Discharge Planning: >30 minutes discharge planning Discharge Home Medications: Active Scripts Active Reported Breo Ellipta 100-25 Mcg INH (Fluticasone/Vilanterol) 1 Each Blst.w.dev 1 Puff INH DAILY Proair Hfa (Albuterol Sulfate) 1 Puff Puff 2 Puff IH Q4H PRN 1 PUFF = 90 MCG Hydrocodon-Acetaminophn 10-325 (Hydrocodone/Acetaminophen) 1 Each Tablet 1 Tab PO BID Miralax (Polyethylene Glycol 3350) 17 Gm Powd.pack 17 Gm PO DAILY PRN Meclizine HCl 25 Mg Tablet 25 Mg PO TID PRN Ondansetron Odt (Ondansetron) 8 Mg Tab.rapdis 8 Mg PO TID PRN Diazepam 10 Mg Tablet 10 Mg PO BID Tizanidine HCl 4 Mg Tablet 4 Mg PO BID Esomeprazole Magnesium 20 Mg Capsule.dr 20 Mg PO HS Fluoxetine HCl 20 Mg Capsule 20 Mg PO BID Dronabinol 5 Mg Capsule 5 Mg PO BID Instructions to patient/family Please see electronic discharge instructions given to patient. Clinical Quality Measures DVT/VTE Risk/Contraindication: Risk Factor Score Per Nursin RFS Level Per Nursing on Admit: 4+=Very High Problem Qualifiers (1) Metastatic lung cancer (metastasis from lung to other site): Laterality: unspecified laterality Qualified Codes: C34.90 - Malignant neoplasm of unspecified part of unspecified bronchus or lung (2) Urinary tract infection: Urinary tract infection type: site unspecified Hematuria presence: without hematuria Qualified Codes: N39.0 - Urinary tract infection, site not specified TIMO LE MD Jan 10, 2018 08:28
[2018-01-10] MEDS: DIAZEPAM 5 MG (VALIUM) TABLET PO SCH (09:03)
[2018-01-10] MEDS: FLUoxetine HCL 10 MG (PROzac) CAPSULE/TABLET PO SCH (09:03)
[2018-01-10] MEDS: DRONABINOL 2.5 MG (MARINOL) CAP PO SCH (12:18)
[2018-01-10 12:30] VITALS: BP 129/75
[2018-01-10] MEDS ORDERED: RT-ALBUTEROL SULF 2.5 MG/3 ML PRE-MIX VIAL INH SCH (21:00)
== END 2018-01-10 12:30 | disposition home or self-care (01) | DRG 690 ==
LOC: EDUNIT# 15:56 → ER 15:57 → 4TH 17:50
PROVIDERS: ADMIT Internal Medicine; ATTEND Internal Medicine
DX: N30.90 Cystitis, unspecified without hematuria (principal); E87.6 Hypokalemia; R64 Cachexia; R41.0 Disorientation, unspecified; C79.31 Secondary malignant neoplasm of brain; C34.91 Malignant neoplasm of unspecified part of right bronchus or lung; J44.9 Chronic obstructive pulmonary disease, unspecified; I10 Essential (primary) hypertension; Z66 Do not resuscitate; E78.00 Pure hypercholesterolemia, unspecified; R47.89 Other speech disturbances; I07.1 Rheumatic tricuspid insufficiency; R91.8 Other nonspecific abnormal finding of lung field; M79.7 Fibromyalgia; F41.9 Anxiety disorder, unspecified; F32.9 Major depressive disorder, single episode, unspecified; Z92.21 Personal history of antineoplastic chemotherapy; Z92.3 Personal history of irradiation; Z87.891 Personal history of nicotine dependence; Z99.81 Dependence on supplemental oxygen; B96.20 Unspecified Escherichia coli [E. coli] as the cause of diseases classified elsewhere
CPT/HCPCS: 36415; 71045; 74018; 80048; 80053; 81000; 83605; 83735; 85007; 85027; 86141; 87040; 87077; 87088; 87186; 94640; 94760; 96361; 96365; 96367